=== PATIENT | male | born 1950 | race Caucasian/White ===

== ENCOUNTER → 2020-11-28 15:00 | Outpatient (REF) | payer MEDICARE, MEDICAID, SELFPAY ==
--- NOTE | 2020-11-28 15:50 | ECG_ITS ---
Hook-up date: 2020-11-28 16:23:00 Duration: 24:21:00 Test Indications: PAF Medications: 65848 QRS complexes 319 Ventricular ectopics which represent <1 % of total QRS comp. 39 Supraventricular ectopics which represent <1 % of total QRS comp. * Paced QRS complexs which represent % of total QRS comp. VENTRICULAR ECTOPY 319 Isolated 62 Bigeminal Cycles 0 Couplets 0 Runs 0 Beats in Runs * Beats LONGEST at * BPM at :: -- * Beats FASTEST at * BPM at :: -- SUPRAVENTRICULAR ECTOPY 31 Isolated 1 Couplets 1 Runs 6 Beats in Runs 6 Beats LONGEST at 60 BPM at 09:35:38 2020-11-29 6 Beats FASTEST at 60 BPM at 09:35:38 2020-11-29 HEART RATES 39 MIN at 12:42:24 2020-11-29 66 AVG 99 MAX at 22:27:55 2020-11-28 LONGEST RR 1.7360 secs at 13:25:21 2020-11-29 S-T LEVELS Channel 1 - 128 mm at 16:23:00 2020-11-28 - 128 mm at 16:23:00 2020-11-28 Channel 2 - 128 mm at 16:23:00 2020-11-28 - 128 mm at 16:23:00 2020-11-28 Channel 3 - 128 mm at 03:54:21 -- - 128 mm at 03:54:21 Basic rhythm Normal sinus rhythm No long pauses Baseline BBB Frequent Sinus bradycardia Occasional Premature ventricular complexes No sustained Atrial fibrillation Patient did not report any symptoms in the diary Referred By: Mike Duncan Overread By: DANIA ALONSO MD
== END ==
LOC: HO.CARD 15:00
PROVIDERS: PCP Family Medicine; Visit Provider Internal Medicine
DX: I48.0 Paroxysmal atrial fibrillation (principal)
CPT/HCPCS: 93225; 93226

== ENCOUNTER → 2020-12-21 14:47 | Outpatient (BNVA) | payer MEDICARE, MEDICAID, SELFPAY | PROVIDERS: PCP Family Medicine; Visit Provider Internal Medicine | DX: I48.0 Paroxysmal atrial fibrillation (principal); I50.32 Chronic diastolic (congestive) heart failure; I11.0 Hypertensive heart disease with heart failure; F14.90 Cocaine use, unspecified, uncomplicated; R00.1 Bradycardia, unspecified | CPT/HCPCS: 99212 ==

== ENCOUNTER → 2021-07-13 13:01 | Outpatient (BNVA) | payer MEDICARE, MEDICAID, SELFPAY | PROVIDERS: PCP Family Medicine; Referring Provider Family Medicine; Visit Provider Internal Medicine | DX: I25.10 Atherosclerotic heart disease of native coronary artery without angina pectoris (principal); I48.0 Paroxysmal atrial fibrillation; I11.0 Hypertensive heart disease with heart failure; I50.32 Chronic diastolic (congestive) heart failure; F14.90 Cocaine use, unspecified, uncomplicated; Z79.01 Long term (current) use of anticoagulants; Z79.899 Other long term (current) drug therapy; Z95.1 Presence of aortocoronary bypass graft | CPT/HCPCS: 93005; 99212 ==

== ENCOUNTER 2021-12-21 10:06 | Outpatient (REF) | payer MEDICARE, MEDICAID, SELFPAY ==
[2021-12-21 14:00] LABS: Hemoglobin 15.6 g/dl (14.0-18.0); Mean Corpuscular HGB Conc 31.8 g/dl (31.0-36.0); Mean Corpuscular Hemoglobin 27.1 pg (27.0-33.0); Mean Corpuscular Volume 85.1 fL (80.0-98.0); Mean Platelet Volume 13.5 fL (9.4-12.4); Platelet Count 132 X10*3/uL (160-400); Red Blood Count 5.76 X10*6/uL (4.60-5.80); White Blood Count 7.6 X10*3/uL (4.8-10.8)
[2021-12-21 14:06] LABS: Estimated Average Glucose 232 mg/dL; Hemoglobin A1c % 9.7 %
[2021-12-21 14:20] LABS: Alanine Aminotransferase 18 U/L (0-40); Albumin Level 3.9 g/dL (3.5-5.0); Alkaline Phosphatase 96 U/L (39-117); Anion Gap 9 (12-20); Aspartate Amino Transferase 17 U/L (5-37); Bilirubin Total 0.4 mg/dL (0.0-1.0); Blood Urea Nitrogen 34 mg/dL (9-16); Calcium 9.5 mg/dL (8.4-10.2); Carbon Dioxide 36 mmol/L (22-29); Chloride 98 mmol/L (96-108); Cholesterol 136 mg/dL; Estimated Glomerular Filt Rate 35; Glucose Fasting 144 mg/dL (60-99); HDL Cholesterol 35 mg/dL; LDL Cholesterol Calculated 69 mg/dl; Potassium 3.3 mmol/L (3.3-5.1); Sodium 140 mmol/L (135-145); Total Protein 7.3 g/dL (6.5-8.0); Triglycerides 164 mg/dL
[2021-12-21 14:38] LABS: TSH reflex Free T4 0.74 uIU/mL (0.32-4.0)
== END 2021-12-21 10:07 | disposition home or self-care (01) ==
LOC: HO.WFDLDS 10:06
PROVIDERS: Visit Provider Hospitalist
DX: Z00.01 Encounter for general adult medical examination with abnormal findings (principal); E11.9 Type 2 diabetes mellitus without complications; Z13.220 Encounter for screening for lipoid disorders; Z13.29 Encounter for screening for other suspected endocrine disorder
CPT/HCPCS: 36415; 80053; 80061; 83036; 84443; 85027

== ENCOUNTER → 2021-12-26 11:07 | Outpatient (REF) | payer MEDICARE, MEDICAID, SELFPAY ==
--- NOTE | 2021-12-26 11:13 | HM_ITS ---
Conclusion: 1. Patient was monitored for total period of 5 days and 12 hours 2. Baseline rhythm was normal sinus rhythm with average heart rate of 69 beats per minute 3. No significant pauses noted 4. One 4 beat wide complex run consistent with nonsustained VT at 139 beats per minute 5. Total of 28,002 PACs accounting for 17.84% total burden account for frequent PACs 6. No patient reported events MTDD
== END ==
LOC: HO.CARD 11:07
PROVIDERS: Visit Provider Internal Medicine
DX: R00.1 Bradycardia, unspecified (principal)
CPT/HCPCS: 93242

== ENCOUNTER 2022-11-20 09:17 | Outpatient (REF) | payer MEDICARE, MEDICAID, SELFPAY ==
[2022-11-20 12:12] LABS: Anion Gap 12 (12-20); Blood Urea Nitrogen 18 mg/dL (9-16); Calcium 9.1 mg/dL (8.4-10.2); Carbon Dioxide 27 mmol/L (22-29); Chloride 108 mmol/L (96-108); Estimated Glomerular Filt Rate > 60; Glucose Random 75 mg/dL (60-115); Potassium 3.9 mmol/L (3.3-5.1); Sodium 143 mmol/L (135-145)
== END 2022-11-20 09:18 | disposition home or self-care (01) ==
LOC: HO.LAB 09:17
PROVIDERS: PCP Family Medicine; Visit Provider Internal Medicine
DX: I48.0 Paroxysmal atrial fibrillation (principal); I25.10 Atherosclerotic heart disease of native coronary artery without angina pectoris; R00.1 Bradycardia, unspecified; I11.0 Hypertensive heart disease with heart failure; I50.32 Chronic diastolic (congestive) heart failure; F14.90 Cocaine use, unspecified, uncomplicated
CPT/HCPCS: 36415; 80048; 93005; 99212

== ENCOUNTER 2023-02-08 19:28 | Emergency (ER) | payer MEDICARE, MEDICAID, SELFPAY ==
--- NOTE | 2023-02-08 19:36 | ED.OVERDOSE ---
HPI - Overdose General Chief Complaint: Overdose Stated Complaint: OD Time Seen by Provider: 02/08/23 19:33 Source: patient and EMS Mode of arrival: EMS Limitations: no limitations History of Present Illness HPI Narrative: Patient comes to the emergency room via ambulance. Patient's family called 911 because the patient overdosed. EMS explains that patient was found unresponsive, PD arrived 1st, gave him 4 mg of intranasal Narcan, patient had good response, woke up, vomited. On arrival to the emergency room, patient alert and oriented x3, no acute distress. Patient states that he did not mean to overdose, he thought he was using cocaine and marijuana, and a where there were any opioids. Patient uses 2 L of oxygen at home, patient states that he feels at baseline at this time. Related Data Previous Rx's Medication Instructions Recorded amlodipine 5 mg tablet 5 mg PO DAILY 3 months #90 tabs 09/12/22 apixaban 5 mg tablet (Eliquis) 5 mg PO BID #180 tabs 09/12/22 atorvastatin 80 mg tablet 80 mg PO BEDTIME 3 months #90 tabs 09/12/22 fluticasone furoate 100 1 inh inhalation DAILY 60 days #60 09/12/22 mcg-vilanterol 25 mcg/dose ea inhalation powder (Breo Ellipta) furosemide 80 mg tablet 80 mg PO BID #135 tabs 09/12/22 glipizide 10 mg tablet 10 mg PO BID #180 tabs 09/12/22 melatonin 10 mg capsule 10 mg PO BEDTIME PRN sleep #30 caps 09/12/22 metoprolol tartrate 25 mg tablet 12.5 mg PO BID #90 tabs 09/12/22 pantoprazole 40 mg tablet,delayed 40 mg PO DAILY #90 tabs 09/12/22 release ropinirole 0.5 mg tablet 0.5 mg PO BEDTIME #90 tabs 09/12/22 trazodone 100 mg tablet 100 mg PO BEDTIME #30 tabs 01/02/23 gabapentin 300 mg capsule 300 mg PO DAILY #30 caps 01/25/23 Allergies Allergy/AdvReac Type Severity Reaction Status Date / Time No Known Allergies Allergy Verified 11/20/22 09:49 [No Known Allergies*] Review of Systems Review of Systems: Constitutional : No Weight loss, No Fever, No Chills, No Night Sweats, No Fatigue, No Malaise ENT/Mouth : No Hearing loss, No Ear Pain, No Nasal Congestion, No Sinus Pain, No Hoarseness, No sore throat, No Rhinorrhea, No Swallowing Difficulty Eyes: No Eye Pain, No Swelling, No Redness, No Foreign Body, No Discharge, No Vision Changes Cardiovascular : No Chest Pain, No SOB, No Dyspnea on Exertion, No Orthopnea, No Edema, No Palpitations Respiratory : No Cough, No Sputum, No Wheezing, No Smoke Exposure, No Dyspnea Gastrointestinal : No Nausea, No Vomiting, No Diarrhea, No Constipation, No abdominal Pain, No Hematochezia, No Melena Genitourinary : no irregular bleeding, No Dysuria, No Urinary Frequency, No Hematuria, No Urinary Incontinence, No Urgency, No Flank Pain, No Urinary Flow Changes, No Hesitancy Musculoskeletal : No joint pain, No Myalgias, No Joint Swelling Skin : No Skin Lesions, No rash Neuro : No Weakness, No Numbness, No Paresthesias, No Loss of Consciousness, No Dizziness, No Headache Psych : No Anxiety/Panic, No Depression, No SI/HI/AH/VH, No Social Issues, Heme/Lymph: No Bruising, No Bleeding,No Lymphadenopathy Endocrine : No Polyuria, No Polydipsia, No Temperature Intolerance [facility] Past Medical History Medical History Atherosclerotic cardiovascular disease Chronic heart failure with preserved ejection fraction Cocaine use Essential hypertension Paroxysmal atrial fibrillation Sinus bradycardia Stroke Type 2 diabetes mellitus Surgical History History of coronary artery bypass graft x 3 (~11/07/16) Family History Family History Father Heart attack Mother Heart attack Social History Social History (Updated 11/20/22 @ 09:50 by AURORA Vargas) Housing: Apartment Alcohol intake: current Patient Tobacco Use Status: Current everyday Tobacco user Cigarette Packs Per Day: 0.5 Cigarettes Per Day: 10 Years Smoked: 60 +/- Smoked in Last 30 Days: Yes e-Cigarette/Vaping Use: Never Used Second Hand Smoke Exposure: No Substance Use Type: Crack/Cocaine and Other Substance Use Type Other:: dope service: No Current occupational status: retired Current occupational exposures/hazards: No Cognitive needs: No Hearing needs: No Vision needs: No Physical Exam Vital Signs: Vital Signs: Last Vital Signs Temp 97.2 F 02/08/23 19:54 Pulse 68 02/08/23 19:54 Resp 16 02/08/23 19:54 BP 145/58 H 02/08/23 19:54 Pulse Ox 98 02/08/23 19:54 O2 Del Method 02/08/23 19:54 O2 Flow Rate 2 02/08/23 19:54 Oxygen Flow Rate 2 02/08/23 19:43 BMI result Body Mass Index 28.9 Const: Other: Appearance: Alert. Oriented X3. No acute distress. Eyes: Pupils equal, round and reactive to light. ENT: Pharynx normal. Neck: Normal inspection. Neck supple. No lymph nodes noted. No crepitus CVS: Normal heart rate and rhythm. Pulses normal. Normal S1 and S2 Respiratory: No respiratory distress. Breath sounds normal. No Wheezing. No rales Abdomen: Soft and nontender. No rigidity. No distention. Skin: Skin warm and dry. Normal skin color. Normal skin turgor. Extremities: No lower extremity edema. No Lacerations. No Rash Neuro: Oriented X 3. No motor deficit. No sensory deficit. Moving all extremities. No slurred speech. CN 2 through 12 grossly intact Psych: calm, cooperative, normal affect Course Course Course Narrative: -patient's point of care 224 -saturating 98% on his home dose of 2 L -patient's vitals are stable -patient will be under observation, if vitals remained stable and patient is awake, oxygenating normal, feeling well, patient may be discharged later today -patient will be provided with home Narcan -patient declined care/sude consult Medications Administered Discontinued Medications Generic Name Dose Route Start Last Admin Trade Name Freq PRN Reason Stop Dose Admin Naloxone HCl 4 mg 02/08/23 19:38 02/08/23 20:55 Naloxone Hcl Nasal Take Home 4 Mg [place] NOSTRILALT 02/08/23 19:39 4 mg ONCE ONE Administration Medical Decision Making Medical Decision Making [facility] Narrative: -patient has been under observation, vitals stable, patient awake alert and oriented x3. Patient's at bedside, ready to be discharged. Differential Diagnosis Differential Diagnoses: The differential diagnosis associated with the presentation includes (Accidental overdose, intentional overdose, depression, substance abuse) Discharge Plan Discharge Clinical Impression: Overdose Patient Disposition: Home, Self-Care Instructions: Adult Overdose (ED) Additional Instructions: Please follow-up with your primary care physician tomorrow. If you have any worsening or new symptoms, please return to the emergency room or call 911 Prescriptions: No Action trazodone 100 mg tablet 100 mg PO BEDTIME Qty: 30 1RF gabapentin 300 mg capsule 300 mg PO DAILY Qty: 30 3RF amlodipine 5 mg tablet 5 mg PO DAILY 90 Days Qty: 90 1RF Eliquis 5 mg tablet 5 mg PO BID Qty: 180 4RF atorvastatin 80 mg tablet 80 mg PO BEDTIME 90 Days Qty: 90 1RF Breo Ellipta 100-25 mcg/dose blister with device 1 inh inhalation DAILY 60 Days Qty: 60 4RF furosemide 80 mg tablet 80 mg PO BID Qty: 135 3RF Rx Instructions: 1 tablet in the morning, 1/2 tablet in the afternoon PO 2 times a day; glipizide 10 mg tablet 10 mg PO BID Qty: 180 1RF Rx Instructions: NEEDS AN APPT melatonin 10 mg capsule 10 mg PO BEDTIME PRN (Reason: sleep) Qty: 30 3RF metoprolol tartrate 25 mg tablet 12.5 mg PO BID Qty: 90 3RF pantoprazole 40 mg tablet,delayed release (DR/EC) 40 mg PO DAILY Qty: 90 4RF ropinirole 0.5 mg tablet 0.5 mg PO BEDTIME Qty: 90 3RF Interventions: [place]-Suicide Risk Severity Scale Last Done: 02/08/23 20:00
[2023-02-08 19:43] VITALS: BP 140/46; BP 176/80; PULSE 77; RESP 21; TEMP 36.7; O2SAT 97; BMI 28.9
--- NOTE | 2023-02-08 19:50 | PC.NURSE ---
BELONGINGS STORED WITH SECURITY IN [place] PER PROTOCOL.
[2023-02-08 19:54] VITALS: BP 145/58; PULSE 68; RESP 16; TEMP 36.2; O2SAT 98
--- NOTE | 2023-02-08 19:55 | MHC.EDTECH ---
pt came in via ems ,for overdosed ,pt was change into hospital attire ,pt belongings is locked up in decon ,pt vitals sign taken ,pt was hooked up to shelter monitor .
--- NOTE | 2023-02-08 19:57 | PC.NURSE ---
pt states h/o COPD aox4
--- NOTE | 2023-02-08 20:31 | PC.NURSE ---
pt resting quietly with occasional productive cough pt was found unresponsive by daughter daughter at bedside
--- NOTE | 2023-02-08 20:38 | PC.NURSE ---
pt aox4, no apparent distress daughter remains at bedside
[2023-02-08] MEDS: Naloxone HCl Nasal TAKE HOME 4 MG SPRAY NOSTRILALT (20:55)
[2023-02-08 21:24] VITALS: BP 114/70; PULSE 75; RESP 14; O2SAT 99
--- NOTE | 2023-02-08 21:25 | PC.NURSE ---
Pt aox3 resting at the bedside in no apparent distress. O2 removed as pt states using at bedtime at home and prn. o2 sat 99% RA. Breaths are even, regular, and unlabored. Discharge instructions reviewed with pt. Pt verbalizes understanding.
== END 2023-02-08 21:27 | disposition home or self-care (01) ==
PROVIDERS: Emergency Provider Emergency Medicine
DX: T40.5X1A Poisoning by cocaine, accidental (unintentional), initial encounter (principal); Y92.9 Unspecified place or not applicable; F17.210 Nicotine dependence, cigarettes, uncomplicated; Z71.6 Tobacco abuse counseling; Z79.899 Other long term (current) drug therapy; Z79.01 Long term (current) use of anticoagulants
CPT/HCPCS: 99284

== ENCOUNTER → 2023-04-12 09:44 | Outpatient (BNVA) | payer MEDICARE, MEDICAID, SELFPAY | PROVIDERS: PCP Family Medicine; Visit Provider Nurse Practitioner Family | DX: G47.9 Sleep disorder, unspecified (principal); G25.81 Restless legs syndrome; R06.83 Snoring; R40.0 Somnolence | CPT/HCPCS: 99202 ==

== ENCOUNTER 2023-06-06 13:29 | Outpatient (AMB) | payer MEDICARE, MEDICAID, SELFPAY ==
--- NOTE | 2023-06-06 13:34 | A.OFFPC_ITS ---
Vital Signs 06/06/23 13:35 Height 5 ft 11 in Weight 205 lb 2 oz BMI 28.6 BP 100/70 Blood Pressure Location Lt brachial Position Sitting Pulse 60 Pulse Source Pulse Oximeter Pulse Oximetry (%) 99 Oxygen Delivery Method Room Air Intake Visit Reasons: f/u diabetes Intake Note: Patient is here to follow up on diabetes. Allergies No Known Allergies [No Known Allergies*] Allergy (Verified 06/06/23 13:38) Medication List - Last Reconciled 06/06/23 by Sivakumar Drake MD amlodipine 5 mg PO DAILY 3 months apixaban (Eliquis) 5 mg PO BID ascorbate calcium (vitamin C) 500 mg PO DAILY 30 days atorvastatin 80 mg PO BEDTIME 3 months blood sugar diagnostic (FreeStyle Lite Strips) DX: E11.9, test blood sugar 2 times a day, 90 days blood-glucose meter (FreeStyle Lite Meter kit) DX: E11.9, test blood sugar 2 times a day, duration 999 days dulaglutide (Trulicity) 0.75 mg (0.5 mL) subcut QWEEK 28 days ferrous sulfate 325 mg PO Q OTHER DAY 30 days fluticasone furoate-vilanterol 100-25 mcg/dose (Breo Ellipta) 1 inh inhalation DAILY 60 days furosemide 80 mg PO BID gabapentin 300 mg PO DAILY glipizide 10 mg PO BID lancets (FreeStyle Lancets) As directed melatonin 10 mg PO BEDTIME PRN metoprolol tartrate 12.5 mg (1/2 x 25 mg) PO BID pantoprazole 40 mg PO DAILY quetiapine 50 mg (2 x 25 mg) PO BEDTIME ropinirole 0.5 mg PO BEDTIME Tobacco use date assessed: 06/06/23 Fall risk assessment: No Falls in past year Last assessed Fall Risk: 06/06/23 Dental Screening Dental Screen Date: 06/06/23 Did you have a dental visit in the last 12 months?: No Did you have a dental problem in the last 6 months where you did not have access to dental care?: No Was dental information given to patient?: No HPI f/u diabetes HPI Details 73 y/o male presents to f/u diabetes. A1c today 06/06/23 improved from 7.5% to 6.7%. He is on Trulicity 0.75,g and glipizide 10mg b.i.d. They had reported a couple instances of low blood sugar in the 60s in the morning. Pt states he continues to smoke 1/2 ppd. They report ongoing difficulty sleeping. [facility] Medical History Atherosclerotic cardiovascular disease Chronic heart failure with preserved ejection fraction Cocaine use Essential hypertension Paroxysmal atrial fibrillation Sinus bradycardia Stroke Type 2 diabetes mellitus Surgical History History of coronary artery bypass graft x 3 (~11/07/16) Family History Father No problems noted. Mother Heart attack Social History Housing: Apartment Alcohol intake: current Patient Tobacco Use Status: Current everyday Tobacco user Cigarette Packs Per Day: 0.5 Cigarettes Per Day: 10 Years Smoked: 60 +/- e-Cigarette/Vaping Use: Never Used Second Hand Smoke Exposure: No Substance Use Type: Crack/Cocaine and Other service: No Current occupational status: retired Current occupational exposures/hazards: No Cognitive needs: No Hearing needs: No Vision needs: No Questionnaire BAMBI-7 AMB Questionnaire BAMBI-7 Date BAMBI - 7 assessed: 09/12/22 Source: Developed by Drs. Nino Durham, Elsa Pastrana, Avtar Dalton and colleagues, with an educational daysi from [employer]. Review of Systems Const Denies chills, Denies fatigue, Denies fever(s), Denies headache(s) and Denies weakness ENT Denies dizziness and Denies headache(s) Card Denies dyspnea Resp Denies cough, Denies dyspnea, Denies wheezing and Denies other (shortness of breath) Musc Denies numbness and Denies tingling Neuro Denies dizziness, Denies headache(s), Denies numbness, Denies tingling and Denies weakness Psych Denies anxiety and Denies depression Endo Denies fatigue Aller/Immun Denies wheezing Physical exam (Primary Care) Vital Signs: Last Vital Signs Pulse 60 06/06/23 13:35 BP 100/70 06/06/23 13:35 Pulse Ox 99 06/06/23 13:35 Oxygen Delivery Method Room Air 06/06/23 13:35 BMI result Body Mass Index 28.6 Tobacco/Smoking Status: Tobacco use Status Tobacco use date assessed 06/06/23 06/06/23 13:41 Patient Tobacco Use Status Current everyday Tobacco 06/06/23 13:41 e-Cigarette/Vaping Use Never Used 06/06/23 13:41 Const General: well developed; No acute distress Nutritional Appearance: well nourished Orientation/consciousness: patient oriented x3 HENMT Head: Yes normocephalic and Yes atraumatic Eyes General: appearance normal, both eyes and all related structures Pupils: Equal, round and reactive pupils present EOM: EOMs intact bilaterally Resp Other: Distant breath sounds Effort & Inspection: normal respiratory effort Neuro General: patient oriented x3 and gait normal Cranial nerves: Yes Equal, round and reactive pupils present Psych Affect: normal affect Results AMB Hemoglobin A1c AMB Hemoglobin A1c 6.7 % Last Edit by Jada Richards CMA on 06/06/23 13:54 Results Reviewed Results Reviewed: Laboratory Last Values Hgb A1c (Clinic) 6.7 % (4.0-6.0) H 06/06/23 13:51 Assessment and Plan Assessment & Plan (1) Type 2 diabetes mellitus: Code(s): E11.9 - Type 2 diabetes mellitus without complications Plan: A1c 6.7% but his morning blood sugars have been as low as 42 and a few times in the 60s. He had been taking Trulicity and glipizide b.i.d. but stopped Trulicity. Likely that low blood sugars are due to his evening dose of glipizide. He will add back Trulicity and family members will help watch his blood sugars. Will likely need to add back morning dose of glipizide which I recommend they start if blood sugars are not well controlled on Trulicity alone. He will no longer take glipizide in the evenings. (2) Smoker: Code(s): F17.200 - Nicotine dependence, unspecified, uncomplicated Plan: Advised weaning down smoking (3) Difficulty sleeping: Code(s): G47.9 - Sleep disorder, unspecified Plan: Had tried trazodone and Seroquel without much luck Patient requests Ambien which we will try (4) COPD (chronic obstructive pulmonary disease): Code(s): J44.9 - Chronic obstructive pulmonary disease, unspecified Plan: Lungs are currently clear As above, advised weaning down smoking and cessation. Orders: Orders AMB Hemoglobin A1c Today Z13.9 - Encounter for screening, unspecified Medications: New zolpidem (Ambien) 5 mg PO BEDTIME 30 days PRN 30 tabs 0RF sleep Changed From glipizide NEEDS AN APPT 10 mg PO BID 180 tabs 1RF To glipizide NEEDS AN APPT 10 mg PO QAM 90 days 90 tabs 2RF Refilled dulaglutide (Trulicity) 0.75 mg (0.5 mL) subcut QWEEK 28 days 2 mL 3RF E11.65 - Type 2 diabetes mellitus with hyperglycemia Coding Level of Care Code Est Pt Level 4 (65512) Diagnoses Type 2 diabetes mellitus E11.9 Smoker F17.200 Difficulty sleeping G47.9 COPD (chronic obstructive pulmonary disease) J44.9
[2023-06-06 13:35] VITALS: BP 100/70; PULSE 60; O2SAT 99; BMI 28.6
== END 2023-06-06 14:27 | disposition home or self-care (01) ==
PROVIDERS: Visit Provider Family Medicine
DX: E11.9 Type 2 diabetes mellitus without complications (principal); F17.200 Nicotine dependence, unspecified, uncomplicated; G47.9 Sleep disorder, unspecified; J44.9 Chronic obstructive pulmonary disease, unspecified
CPT/HCPCS: 83036; 99214

== ENCOUNTER 2023-09-05 14:28 | Outpatient (AMB) | payer MEDICARE, MEDICAID, SELFPAY ==
[2023-09-05 14:35] VITALS: BP 96/58; PULSE 82; O2SAT 71; BMI 25.1
--- NOTE | 2023-09-05 14:35 | A.OFFPC_ITS ---
Vital Signs 09/05/23 14:35 09/05/23 15:17 Height 5 ft 11 in Weight 180 lb BMI 25.1 BP 96/58 L Blood Pressure Location Lt brachial Position Sitting Pulse 82 Pulse Source Pulse Oximeter Pulse Oximetry (%) 71 L 87 L Oxygen Delivery Method Room Air Nasal Cannula Oxygen Flow Rate 2 Intake Visit Reasons: f/u diabetes Intake Note: Patient is here today to follow up on his diabetes today. Allergies No Known Allergies [No Known Allergies*] Allergy (Verified 09/05/23 14:40) Tobacco use date assessed: 06/06/23 Fall risk assessment: No Falls in past year Last assessed Fall Risk: 09/05/23 Dental Screening Dental Screen Date: 09/05/23 Did you have a dental visit in the last 12 months?: No Did you have a dental problem in the last 6 months where you did not have access to dental care?: No Was dental information given to patient?: Patient declined HPI f/u diabetes HPI Details 73 y/o male presents to f/u diabetes. A1c was improved but pt reported he had been having too many low blood sugars. They had discontinued Trulicity due to low blood sugars but appeared glipizide was cause of his low morning blood sugars. He resumes Trulicity and will no longer take evening glipizide. Last A1c 06/06/23 6.7%. A1c today 09/05/23 is O2 sat today 71. Blood pressure today 96/58. [facility] Medical History Atherosclerotic cardiovascular disease Chronic heart failure with preserved ejection fraction Cocaine use Essential hypertension Paroxysmal atrial fibrillation Sinus bradycardia Stroke Type 2 diabetes mellitus Surgical History History of coronary artery bypass graft x 3 (~11/07/16) Family History Father No problems noted. Mother Heart attack Social History Housing: Apartment Alcohol intake: current Patient Tobacco Use Status: Current everyday Tobacco user Cigarette Packs Per Day: 0.5 Cigarettes Per Day: 10 Years Smoked: 60 +/- e-Cigarette/Vaping Use: Never Used Second Hand Smoke Exposure: No Substance Use Type: Crack/Cocaine and Other service: No Current occupational status: retired Current occupational exposures/hazards: No Cognitive needs: No Hearing needs: No Vision needs: No Questionnaire BAMBI-7 AMB Questionnaire BAMBI-7 Date BAMBI - 7 assessed: 09/12/22 Source: Developed by Drs. Nino Durham, Elsa Pastrana, Avtar Dalton and colleagues, with an educational daysi from [employer]. Review of Systems Const Denies chills, Denies fatigue, Denies fever(s), Denies headache(s) and Denies weakness ENT Denies dizziness and Denies headache(s) Card Denies chest pain, Denies lightheadedness, Denies dyspnea and Denies other (Palpitations) Resp Denies cough, Denies dyspnea, Denies wheezing and Denies other ( shortness of breath) Musc Denies numbness and Denies tingling Neuro Denies dizziness, Denies headache(s), Denies numbness, Denies tingling, Denies paresthesias and Denies weakness Psych Denies anxiety and Denies depression Endo Denies fatigue Aller/Immun Denies wheezing Physical exam (Primary Care) Vital Signs: Last Vital Signs Pulse 82 09/05/23 14:35 BP 96/58 L 09/05/23 14:35 Pulse Ox 71 L 09/05/23 14:35 Oxygen Delivery Method Room Air 09/05/23 14:35 BMI result Body Mass Index 25.1 Tobacco/Smoking Status: Tobacco use Status Tobacco use date assessed 06/06/23 09/05/23 14:39 Patient Tobacco Use Status Current everyday Tobacco 09/05/23 14:39 e-Cigarette/Vaping Use Never Used 09/05/23 14:39 Const General: no acute distress and well developed Nutritional Appearance: well nourished Orientation/consciousness: patient oriented x3 HENRI Head: Yes normocephalic and Yes atraumatic Eyes General: appearance normal, both eyes and all related structures Pupils: Equal, round and reactive pupils present EOM: EOMs intact bilaterally Resp Effort & Inspection: normal respiratory effort Auscultation: clear to auscultation bilaterally Cardio Rate: regular rate Rhythm: regular rhythm Heart sounds: S1 normal heart sound present, S2 normal heart sound present, no gallops, no murmurs and no rubs Neuro General: patient oriented x3 and gait normal Cranial nerves: Yes Equal, round and reactive pupils present Psych Affect: normal affect Assessment and Plan Assessment & Plan (1) Type 2 diabetes mellitus: Code(s): E11.9 - Type 2 diabetes mellitus without complications Plan: A1c?7.3%?is?above?goal?of?7.0% Increased?Trulicity Continue?glipizide (2) Essential hypertension: Code(s): I10 - Essential (primary) hypertension Plan: Blood?pressure?is?a?little?low?today. Will?decrease?amlodipine?from?5?mg?daily?to?2.5?mg?daily Continue?metoprolol Hydrate?well (3) COPD (chronic obstructive pulmonary disease): Code(s): J44.9 - Chronic obstructive pulmonary disease, unspecified Plan: Patient?continues?to?smoke?though?he?says?he?is?still?working?on?weaning?this?do wn Encouraged?cessation Oxygen?saturation?today?is?significantly?low.??He?has?oxygen?at?[place]?but?does?not?have?oxygen?for?traveling. Lungs?are?clear?today;?no?exacerbation?and?patient?says?he?feels?like?he?is?at?b [facility]. Patient?will?use?his?oxygen?at?home. No?recent?visit?with?pulmonolo gy?and?I?have?referred?him?back?to?pulmonology.??He?will?likely?need?oxygen?for? ambulation?as?well?as?at?home. (4) Hypoxia: Code(s): R09.02 - Hypoxemia Plan: As?above Patient's?oxygen?saturation?increases?to?88%?on?2?L?oxygen?by?nasal?cannula. Patient?feels?well?and?lungs?sound?clear. Use?at-home?oxygen?and?follow-up?with?pulmonology?as?soon?as?able. Needs?to?be?seen?by?pulmonology. No?recent?appointments.??Referred?back?to?pulmonology Orders: Referrals Pulmonology Referral J44.9 - Chronic obstructive pulmonary disease, unspecified, R09.02 - Hypoxemia Medications: Changed From amlodipine 5 mg PO DAILY 3 months 90 tabs 1RF To amlodipine 2.5 mg PO DAILY 90 tabs 1RF 3 months From dulaglutide (Trulicity) 0.75 mg (0.5 mL) subcut QWEEK 28 days 2 mL 3RF E11.65 - Type 2 diabetes mellitus with hyperglycemia To dulaglutide 1.5 mg (0.5 mL) subcut QWEEK 2 mL 3RF 28 days E11.65 - Type 2 diabetes mellitus with hyperglycemia Coding Level of Care Code Est Pt Level 4 (72435) Diagnoses Type 2 diabetes mellitus E11.9 Essential hypertension I10 COPD (chronic obstructive pulmonary disease) J44.9 Hypoxia R09.02
[2023-09-05 15:17] VITALS: O2SAT 87
== END 2023-09-05 15:21 | disposition home or self-care (01) ==
PROVIDERS: PCP Family Medicine; Visit Provider Family Medicine
DX: E11.9 Type 2 diabetes mellitus without complications (principal); I10 Essential (primary) hypertension; J44.9 Chronic obstructive pulmonary disease, unspecified; R09.02 Hypoxemia
CPT/HCPCS: 83036; 99214

== ENCOUNTER 2023-09-25 13:50 | Outpatient (AMB) | payer MEDICARE, MEDICAID, SELFPAY ==
[2023-09-25 14:24] VITALS: BP 100/58; PULSE 53; O2SAT 92; BMI 22.9
--- NOTE | 2023-09-25 14:24 | A.OFFVIS_ITS ---
Intake Vital Signs 09/25/23 14:24 Height 5 ft 11 in Weight 164 lb BMI 22.9 BP 100/58 L Blood Pressure Location Lt brachial Position Sitting Pulse 53 Pulse Source Pulse Oximeter Pulse Oximetry (%) 92 Oxygen Delivery Method Nasal Cannula Oxygen Flow Rate 2 Intake Visit Reasons: copd Professor Of Criminal Justice Required: No Labeling Specialist: Labeling Specialist offered & declined Accompanied by: Family/Other Allergies No Known Allergies [No Known Allergies*] Allergy (Verified 09/25/23 14:31) Medication List - Last Reconciled 09/25/23 by Sonia Argueta LPN amlodipine 2.5 mg PO DAILY 3 months apixaban (Eliquis) 5 mg PO BID ascorbate calcium (vitamin C) 500 mg PO DAILY 30 days atorvastatin 80 mg PO BEDTIME 3 months blood sugar diagnostic (FreeStyle Lite Strips) DX: E11.9, test blood sugar 2 times a day, 90 days blood-glucose meter (FreeStyle Lite Meter kit) DX: E11.9, test blood sugar 2 times a day, duration 999 days dulaglutide 1.5 mg (0.5 mL) subcut QWEEK 28 days ferrous sulfate 325 mg PO Q OTHER DAY 30 days fluticasone furoate-vilanterol 100-25 mcg/dose (Breo Ellipta) 1 inh inhalation DAILY 60 days furosemide 80 mg PO BID gabapentin 300 mg PO DAILY glipizide 10 mg PO QAM 90 days lancets (FreeStyle Lancets) As directed melatonin 10 mg PO BEDTIME PRN metoprolol tartrate 12.5 mg (1/2 x 25 mg) PO BID pantoprazole 40 mg PO DAILY quetiapine 50 mg (2 x 25 mg) PO BEDTIME ropinirole 0.5 mg PO BEDTIME zolpidem (Ambien) 5 mg PO BEDTIME PRN 30 days HPI copd HPI Details Josh is pleasant 73 year old male, current 2-2.5 ppd smoker with a 60+ pack year history, with underlying COPD, chronic respiratory failure on 2 L supplemental oxygen, atrial fibrillation, CABG x 3, diastolic dysfunction. He was referred by PCP for pulmonary evaluation. He reports worsening productive cough with yellow mucous and specks of blood, dyspnea on exertion, and wheezing. He has been using Breo with suboptimal control. He reports a significant amount of weight loss over the last three months, upwards of 60 lbs. He denies any personal or family history of lung cancer. He had a chest CT in 2019 which revealed a >1cm nodule of the GERRI with recommendation for a 3 month follow up. Unfortunately he was lost to follow up and has not had any further imaging. [facility] Medical History Cocaine use Type 2 diabetes mellitus Chronic heart failure with preserved ejection fraction Stroke Essential hypertension Sinus bradycardia Paroxysmal atrial fibrillation Atherosclerotic cardiovascular disease Surgical History History of coronary artery bypass graft x 3 (~11/07/16) Family History Father No problems noted. Mother Heart attack Social History Housing: Apartment Alcohol intake: current Patient Tobacco Use Status: Current everyday Tobacco user Cigarette Packs Per Day: 2 Cigarettes Per Day: 40 Years Smoked: 60 +/- e-Cigarette/Vaping Use: Never Used Second Hand Smoke Exposure: No Substance Use Type: Crack/Cocaine and Other Advance Directives: No Advance Directives Information Provided: No service: No Current occupational status: retired Current occupational exposures/hazards: No Cognitive needs: No Hearing needs: No Vision needs: No Review of Systems Const Denies chills, Denies excessive sweating, Denies fever(s), Denies headache(s) and Denies night sweats Eyes Denies dry eyes, Denies irritation and Denies itchy eyes ENT Reports Normal hearing present, Denies headache(s), Denies nasal congestion, Denies nasal discharge, Denies post nasal drip and Denies sore throat Card Denies chest pain, Denies chest pain at rest, Denies chest pain with activity, Denies claudication, Denies leg edema, Denies orthopnea and Denies paroxysmal nocturnal dyspnea Resp Denies pain on inspiration, Denies pain with cough and Denies stridor Musc Denies myalgias Neuro Reports Normal hearing present and Denies headache(s) Endo Denies excessive sweating Fabrice/Lymph Denies lymphadenopathy Aller/Immun Denies itchy eyes and Denies seasonal rhinorrhea Physical Exam Vital Signs: Last Vital Signs Pulse 53 09/25/23 14:24 BP 100/58 L 09/25/23 14:24 Pulse Ox 92 09/25/23 14:24 Oxygen Delivery Method Nasal Cannula 09/25/23 14:24 Oxygen Flow Rate 2 09/25/23 14:24 BMI result Body Mass Index 22.9 Const General: cooperative, no acute distress, well developed and alert Orientation/consciousness: patient oriented x3 Limitations: no limitations HEENT Head: Yes normal to inspection, Yes normocephalic and Yes atraumatic Ears: hearing grossly normal bilaterally and external ears normal Eyes General: appearance normal, both eyes and all related structures Eyelids: Yes eyelids normal Sclerae: sclerae normal EOM: EOMs intact bilaterally Neck Other: nonpainful, palpable mass on right lateral neck Chest Chest palpation & inspection: normal inspection of the chest Resp Other: rhonchi throughout with expiratory wheezes, improved after duoneb Effort & Inspection: normal respiratory effort, able to speak in complete sentences, no stridor, not tachypneic, no tripod positioning and no use of accessory muscles Cardio Rate: regular rate Skin Other: warm, dry General skin exam: no rashes or lesions noted Neuro General: patient oriented x3 Cranial nerves: Yes Normal hearing present Cognition (Neuro): normal cognition Gait exam (Neuro): Normal gait present Extrem General: Yes normal to inspection, Yes capillary refill normal, Yes no clubbing, cyanosis or edema and Yes no pedal edema Psych Appearance: grossly normal and well kempt Speech and movement: Normal speech and movement present and Clear speech present Affect: normal affect Attitude: cooperative Thought process: Normal thought process present Thought content: Normal thought content present Insight: Good insight present (Psych) Judgement: Good judgement present (Psych) Office Procedures Nebulizer Treatment Nebulizer Treatment 18845-[id number]/MDI RX initial, or Nebulizer Subsequent Treatment Office Meds ipratropium 0.5 mg-albuterol 3 mg (2.5 mg base)/3 mL nebulization soln Performing Provider: Virgen Bullard NP Performing Location: [facility] Administered by: Sonia Argueta LPN on 09/25/23 15:00 Dose Route Admin Location Dispensed Lot Number Expiration Date NDC Family Preservation Caseworker 3 mL inhalation 3 mL [id number] 01/22/25 5884-1312-72 [employer] ITA Assessment & Plan Assessment & Plan (1) Chronic respiratory failure with hypoxia: Code(s): J96.11 - Chronic respiratory failure with hypoxia (2) COPD (chronic obstructive pulmonary disease): Code(s): J44.9 - Chronic obstructive pulmonary disease, unspecified (3) Pulmonary nodule 1 cm or greater in diameter: Code(s): R91.1 - Solitary pulmonary nodule (4) Smoker: Code(s): F17.200 - Nicotine dependence, unspecified, uncomplicated Plan Josh's symptoms likely related to underlying COPD. Patient with acute exacerbation, will treat bronchitic symptoms with doxycyline and prednisone. Will switch Breo to Trelegy. Gave nebulizer machine for home use. Patient noted to have blood tinged sputum, advised to obtain CXR today. Will also send for chest CT given prior >1 cm nodule and continued smoking history. Would like to obtain PFT in the future, once symptoms back to baseline. Will follow up in 2 weeks or sooner if needed. All questions were answered and patient is in agreement of plan. Orders: Orders XR chest 2V Today R05.3 - Chronic cough AMB Nebulizer Treatment Today J44.9 - Chronic obstructive pulmonary disease, unspecified Medications: New prednisone 40 mg (2 x 20 mg) PO DAILY 10 tabs 0RF doxycycline hyclate 100 mg PO BID 20 caps 0RF twbrhmnhvdx-wvfnmyosk-axdxswxg 200-62.5-25 mcg (Trelegy Ellipta) 1 inh inhalation DAILY 60 ea 0RF ipratropium-albuterol 0.5 mg-3 mg(2.5 mg base)/3 mL 3 mL inhalation BID PRN 180 mL 0RF wheezing Coding Level of Care Code New Pt Level 4 (41271) Diagnoses Chronic respiratory failure with hypoxia J96.11 COPD (chronic obstructive pulmonary disease) J44.9 Pulmonary nodule 1 cm or greater in diameter R91.1 Smoker F17.200 CPT Codes Nebulizer Treatment - Nebulizer Treatment, initial or subsequent: 62880- Nebulizer/MDI RX initial, or Nebulizer Subsequent Treatment ([id number])
== END 2023-09-25 15:19 | disposition home or self-care (01) ==
LOC: HO.HPSW 13:50
PROVIDERS: PCP Family Medicine; Referring Provider Family Medicine; Visit Provider Nurse Practitioner Family
DX: J96.11 Chronic respiratory failure with hypoxia (principal); J44.9 Chronic obstructive pulmonary disease, unspecified; R91.1 Solitary pulmonary nodule; F17.200 Nicotine dependence, unspecified, uncomplicated
CPT/HCPCS: 99204; 99214

== ENCOUNTER 2023-09-25 16:48 | Inpatient (IN) | payer MEDICARE, MEDICAID, SELFPAY ==
[2023-09-25] VITALS (13 sets, daily range): BP systolic 129–146; BP diastolic 49–62; PULSE 58–95; RESP 20–28; TEMP 36.5–36.6; O2SAT 78–96; BMI 24.2
--- NOTE | ~2023-09-25 | CT_ITS ---
EXAMINATION: CT ANGIOGRAM CHEST, ABDOMEN AND PELVIS CLINICAL INFORMATION: Hypoxia. Shortness of breath. Pain. COMPARISON: 12/09/2018. TECHNIQUE: TECHNIQUE: Prior to contrast administration, noncontrast localization images were obtained. Subsequently, multidetector volumetric imaging was performed from the thoracic inlet to below the diaphragms following the administration of 80 mL Omnipaque 350 intravenous contrast. No contrast reaction reported Sagittal, coronal, and MIP oblique sagittal reformatted images were obtained on the CT workstation, uploaded to PACS, and reviewed. This CT examination was performed using dose optimization techniques as appropriate, variously including the following: *Automated exposure control *Adjustment of mA and/or kV according to patient size (this includes techniques or standardized protocols for targeted exams where dose is matched to indication/reason for exam; i.e. extremities or head) *Use of iterative reconstruction technique Total exam dose-length product 1046Gy-cm FINDINGS: QUALITY OF STUDY/CONTRAST BOLUS: Adequate. PULMONARY ARTERIES: No pulmonary emboli. THORACIC AORTA: No aneurysm. LUNG: There is diffuse emphysematous change. There is a small amount of debris within the lower trachea. There is left lower lung field bronchial opacification with significant left lower lobe consolidation. There is also right lower lobe bronchial opacification and diffuse bronchial thickening. There is a right middle lobe opacity. PLEURA: No pleural effusion or pneumothorax. CORONARY ARTERY CALCIFICATION: [id number]. MEDIASTINUM: Normal heart size. No pericardial effusion. No hilar or mediastinal lymphadenopathy. No evidence of septal bowing or right heart strain. There is diffuse esophageal thickening. CHEST WALL/AXILLA: No axillary or internal mammary lymphadenopathy. LIVER, GALLBLADDER, BILIARY TREE: The liver is normal in size, shape, and attenuation. No focal hepatic lesion or biliary ductal dilatation is present. A few gallstones are noted within a decompressed gallbladder. PANCREAS: Normal; no mass or surrounding fluid. SPLEEN: Normal size. No focal lesion. ADRENAL GLANDS: Normal; no mass. KIDNEYS AND URETERS: The kidneys are normal in size, shape, and attenuation. No hydronephrosis, hydroureter, or calculi seen. No perinephric stranding. BLADDER: No focal mass or wall thickening seen. No bladder calculi. GASTROINTESTINAL TRACT: Stomach and small bowel non-dilated. No colonic wall thickening or pericolonic inflammatory changes. The appendix is dilated measuring up to 1 cm but does contain air to the tip. There is no periappendiceal infiltration. ABDOMINAL WALL: No hernia seen. LYMPHOVASCULAR STRUCTURES: There is atherosclerotic plaque of the abdominal aorta and proximal branches. PELVIC VISCERA: Unremarkable. OSSEOUS STRUCTURES: There is diffuse [id number] thoracolumbar disc degenerative change. CT/CT abdomen pelvis w IV con IMPRESSION: No evidence for pulmonary embolism. Diffuse emphysema/COPD. Small amount of debris within the lower trachea. Bilateral lower lobe bronchial opacification. There is significant left lower lobe consolidation suggesting atelectasis and/or infiltrate. Right middle lobe opacity likely atelectasis. Cholelithiasis. The appendix is prominent in size measuring up to 1 cm but does contain air to the tip and there is no associated periappendiceal infiltration. Clinical correlation and follow-up is needed. Fleischner guidelines were followed.
--- NOTE | ~2023-09-25 | XR_ITS ---
EXAMINATION: XR CHEST CLINICAL INFORMATION: Shortness of breath COMPARISON: 09/25/2023 TECHNIQUE: Frontal view of the chest was obtained. FINDINGS: Patient is status post median sternotomy. Lungs are clear cardiomediastinal silhouette is not enlarged. There is no evidence of pleural effusion. XR/XR chest 1V IMPRESSION: No active cardiopulmonary disease
--- NOTE | ~2023-09-25 | CT_ITS ---
EXAMINATION: CT HEAD WITHOUT CONTRAST CLINICAL INFORMATION: Encephalopathy. Subacute cerebrovascular accident. COMPARISON: None available. TECHNIQUE: Contiguous axial imaging was performed from the skull base to vertex without intravenous administration of contrast. This CT examination was performed using dose optimization techniques as appropriate, variously including the following: *Automated exposure control. *Adjustment of mA and/or kV according to patient size (this includes techniques or standardized protocols for targeted exams where dose is matched to indication/reason for exam; i.e. extremities or head). *Use of iterative reconstruction technique. DLP: 1852 mGy-cm FINDINGS: There is no evidence of acute intracranial hemorrhage or edematous territorial infarction. Chronic appearing lacunar infarcts of the bilateral degroot radiata and lentiform nuclei. No additional loss of meng-white matter differentiation. A few foci of hypoattenuation in the periventricular and deep white matter are consistent with mild microangiopathy. Proportional prominence of the ventricles and sulcal spaces without evidence of obstructive hydrocephalus. No abnormal mass effect or midline shift. No extra-axial fluid collections. Calcific atherosclerotic disease of the intracranial internal carotid and vertebral arteries. No hyperdense vessel sign. No acute soft tissue or osseous abnormalities. Mild mucosal thickening of the paranasal sinuses. The mastoid air cells and middle ear cavities are clear. Bilateral lens extractions. CT/CT head/brain wo IV con IMPRESSION: 1. No evidence of acute intracranial hemorrhage or edematous territorial infarction. 2. Mild underlying microangiopathy and generalized cerebral volume loss. Chronic appearing lacunar infarcts of the deep nuclei.
--- NOTE | ~2023-09-25 | CT_ITS ---
EXAMINATION: CT ANGIOGRAM OF THE CHEST WITH AND WITHOUT CONTRAST (CT PULMONARY ANGIOGRAM FOR PE) CLINICAL INFORMATION: Reason for Exam persistent hypoxia COMPARISON: Chest x-ray September 27, 2023. CT of chest September 25, 2023 TECHNIQUE: Prior to contrast administration, noncontrast localization images were obtained. Subsequently, multidetector volumetric imaging was performed from the thoracic inlet to below the diaphragms following the administration of 65 mL Omnipaque 350 intravenous contrast. No contrast reaction reported Sagittal, coronal, and MIP oblique sagittal reformatted images were obtained on the CT workstation, uploaded to PACS, and reviewed. This CT examination was performed using dose optimization techniques as appropriate, variously including the following: *Automated exposure control *Adjustment of mA and/or kV according to patient size (this includes techniques or standardized protocols for targeted exams where dose is matched to indication/reason for exam; i.e. extremities or head) *Use of iterative reconstruction technique Total exam dose-length product 494 mGy-cm FINDINGS: QUALITY OF STUDY/CONTRAST BOLUS: Satisfactory. PULMONARY ARTERIES: No pulmonary emboli. THORACIC AORTA: No aneurysm. Vascular calcifications of the wall of the thoracic aorta. LUNG: Diffuse marked emphysematous change of lungs. Bronchial calcification and consolidation of left lower lobe unchanged since prior CT September 25, 2023. There is persistent atelectasis also of the right middle lobe unchanged since prior CT. PLEURA: No pleural effusion or pneumothorax. MEDIASTINUM: Normal heart size. No pericardial effusion. No hilar or mediastinal lymphadenopathy. No evidence of septal bowing or right heart strain. Images included portions of the lower neck. There is soft tissue density and fullness of the right aryepiglottic fold and vallecula and piriform sinus. This could be mucus but a mass may be present. Consider direct visualization. CORONARY ARTERY CALCIFICATION: Mild to moderate coronary calcification CHEST WALL/AXILLA: No axillary or internal mammary lymphadenopathy. OSSEOUS STRUCTURES: No acute or suspicious osseous abnormality. Status post median sternotomy. Multilevel degenerative spondylosis spine. UPPER ABDOMEN: Unremarkable. No reflux of contrast into the hepatic veins to suggest elevated right heart pressures. CT/CT angio chest PE protocol IMPRESSION: 1. No evidence of pulmonary embolism. 2. Marked emphysematous change of lungs. 3. Chronic consolidation left lower lobe and right middle lobe. 4. Soft tissue density and fullness of the right aryepiglottic fold, vallecula and piriform sinus. This could be mucus but a mass may be present. Consider direct visualization. VTE: negative.
--- NOTE | ~2023-09-25 | CT_ITS ---
EXAMINATION: CT ANGIOGRAM CHEST, ABDOMEN AND PELVIS CLINICAL INFORMATION: Hypoxia. Shortness of breath. Pain. COMPARISON: 12/09/2018. TECHNIQUE: TECHNIQUE: Prior to contrast administration, noncontrast localization images were obtained. Subsequently, multidetector volumetric imaging was performed from the thoracic inlet to below the diaphragms following the administration of 80 mL Omnipaque 350 intravenous contrast. No contrast reaction reported Sagittal, coronal, and MIP oblique sagittal reformatted images were obtained on the CT workstation, uploaded to PACS, and reviewed. This CT examination was performed using dose optimization techniques as appropriate, variously including the following: *Automated exposure control *Adjustment of mA and/or kV according to patient size (this includes techniques or standardized protocols for targeted exams where dose is matched to indication/reason for exam; i.e. extremities or head) *Use of iterative reconstruction technique Total exam dose-length product 1046Gy-cm FINDINGS: QUALITY OF STUDY/CONTRAST BOLUS: Adequate. PULMONARY ARTERIES: No pulmonary emboli. THORACIC AORTA: No aneurysm. LUNG: There is diffuse emphysematous change. There is a small amount of debris within the lower trachea. There is left lower lung field bronchial opacification with significant left lower lobe consolidation. There is also right lower lobe bronchial opacification and diffuse bronchial thickening. There is a right middle lobe opacity. PLEURA: No pleural effusion or pneumothorax. CORONARY ARTERY CALCIFICATION: [id number]. MEDIASTINUM: Normal heart size. No pericardial effusion. No hilar or mediastinal lymphadenopathy. No evidence of septal bowing or right heart strain. There is diffuse esophageal thickening. CHEST WALL/AXILLA: No axillary or internal mammary lymphadenopathy. LIVER, GALLBLADDER, BILIARY TREE: The liver is normal in size, shape, and attenuation. No focal hepatic lesion or biliary ductal dilatation is present. A few gallstones are noted within a decompressed gallbladder. PANCREAS: Normal; no mass or surrounding fluid. SPLEEN: Normal size. No focal lesion. ADRENAL GLANDS: Normal; no mass. KIDNEYS AND URETERS: The kidneys are normal in size, shape, and attenuation. No hydronephrosis, hydroureter, or calculi seen. No perinephric stranding. BLADDER: No focal mass or wall thickening seen. No bladder calculi. GASTROINTESTINAL TRACT: Stomach and small bowel non-dilated. No colonic wall thickening or pericolonic inflammatory changes. The appendix is dilated measuring up to 1 cm but does contain air to the tip. There is no periappendiceal infiltration. ABDOMINAL WALL: No hernia seen. LYMPHOVASCULAR STRUCTURES: There is atherosclerotic plaque of the abdominal aorta and proximal branches. PELVIC VISCERA: Unremarkable. OSSEOUS STRUCTURES: There is diffuse [id number] thoracolumbar disc degenerative change. CT/CT angio chest PE protocol IMPRESSION: No evidence for pulmonary embolism. Diffuse emphysema/COPD. Small amount of debris within the lower trachea. Bilateral lower lobe bronchial opacification. There is significant left lower lobe consolidation suggesting atelectasis and/or infiltrate. Right middle lobe opacity likely atelectasis. Cholelithiasis. The appendix is prominent in size measuring up to 1 cm but does contain air to the tip and there is no associated periappendiceal infiltration. Clinical correlation and follow-up is needed. Fleischner guidelines were followed.
--- NOTE | ~2023-09-25 | XR_ITS ---
EXAMINATION: XR CHEST CLINICAL INFORMATION: Shortness of breath COMPARISON: Previous chest x-ray most recent November 2018 TECHNIQUE: Frontal view of the chest was obtained. FINDINGS: Normal heart size. Post-CABG changes. Hilar and mediastinal contours are unremarkable. Question small infiltrate at the right lung base. Lungs are otherwise clear. No pleural effusion or pneumothorax. Degenerative changes of the thoracic spine. Median sternotomy wires. XR/XR chest 1V IMPRESSION: Question small infiltrate at the right lung base.
--- NOTE | 2023-09-25 17:03 | ECG_ITS ---
Test Reason : SHORTNESS OF BREATH Blood Pressure : / mmHG Vent. Rate : 082 BPM Atrial Rate : 082 BPM P-R Int : 150 ms QRS Dur : 126 ms QT Int : 440 ms P-R-T Axes : 079 -61 074 degrees QTc Int : 514 ms Sinus rhythm with Premature atrial complexes Left anterior fascicular block Right bundle branch block Abnormal ECG When compared with ECG of 26-FEB-2019 15:08, Premature atrial complexes are now Present Vent. rate has increased BY 38 BPM Right bundle branch block is now Present Referred By: Nina Wells Electronically Signed By:SONIA GUERRERO MD
--- NOTE | 2023-09-25 17:18 | ED_ITS ---
HPI - SOB/Dyspnea General Chief Complaint: Upper Respiratory Symptoms Stated Complaint: fell exiting car after COPD appointment,feels weak Time Seen by Provider: 09/25/23 17:03 Source: family and EMS Mode of arrival: EMS History of Present Illness HPI Narrative: 73-year-old male known COPD patient, apparently has run out of oxygen for a an unknown period of time did not have a head strike as his son caught him but presents on 100% non-rebreather with shortness of breath. Related Data Home Medications Medication Instructions Recorded Confirmed furosemide 80 mg tablet 40 mg PO DAILY@1300 09/25/23 09/25/23 furosemide 80 mg tablet 80 mg PO DAILY 09/25/23 09/25/23 Previous Rx's Medication Instructions Recorded apixaban 5 mg tablet (Eliquis) 5 mg PO BID #180 tabs 09/12/22 ropinirole 0.5 mg tablet 0.5 mg PO BEDTIME #90 tabs 09/12/22 blood sugar diagnostic (FreeStyle #200 ea 03/07/23 Lite Strips) blood-glucose meter (FreeStyle #1 ea 03/07/23 Lite Meter kit) lancets 28 gauge (FreeStyle #200 ea 03/07/23 Lancets) ascorbate calcium (vitamin C) 500 500 mg PO DAILY 30 days #30 tabs 04/12/23 mg tablet ferrous sulfate 325 mg (65 mg 325 mg PO Q OTHER DAY 30 days #15 04/12/23 iron) tablet tabs atorvastatin 80 mg tablet 80 mg PO BEDTIME 3 months #90 tabs 04/24/23 quetiapine 25 mg tablet 50 mg (2 x 25 mg) PO BEDTIME #30 04/25/23 tabs gabapentin 300 mg capsule 300 mg PO DAILY #30 caps 05/30/23 glipizide 10 mg tablet 10 mg PO QAM 90 days #90 tabs 06/06/23 zolpidem 5 mg tablet (Ambien) 5 mg PO BEDTIME PRN sleep 30 days 07/02/23 #30 tabs amlodipine 2.5 mg tablet 2.5 mg PO DAILY 3 months #90 tabs 09/05/23 dulaglutide 1.5 mg/0.5 mL 1.5 mg (0.5 mL) subcut QWEEK 28 09/05/23 subcutaneous pen injector days #2 mL metoprolol tartrate 25 mg tablet 12.5 mg (1/2 x 25 mg) PO BID #90 09/17/23 tabs pantoprazole 40 mg tablet,delayed 40 mg PO DAILY #90 tabs 09/17/23 release doxycycline hyclate 100 mg capsule 100 mg PO BID #20 caps 09/25/23 fluticasone fur. 200 mcg-umeclid 1 inh inhalation DAILY #60 ea 09/25/23 62.5 mcg-vilant 25 mcg inhalat.powder (Trelegy Ellipta) ipratropium 0.5 mg-albuterol 3 mg 3 ml inhalation BID PRN wheezing 09/25/23 (2.5 mg base)/3 mL nebulization #180 mL soln prednisone 20 mg tablet 40 mg (2 x 20 mg) PO DAILY #10 tabs 09/25/23 Allergies Allergy/AdvReac Type Severity Reaction Status Date / Time No Known Allergies Allergy Verified 09/25/23 14:31 [No Known Allergies*] Review of Systems 2 Review of Systems: Pertinent positives and negatives as reported in the [facility] Past Medical History Source: nursing notes reviewed Medical History Cocaine use Type 2 diabetes mellitus Chronic heart failure with preserved ejection fraction Stroke Essential hypertension Sinus bradycardia Paroxysmal atrial fibrillation Atherosclerotic cardiovascular disease Surgical History History of coronary artery bypass graft x 3 (~11/07/16) Family History Family History Father No problems noted. Mother Heart attack Social History Social History Housing: Apartment Alcohol intake: never Patient Tobacco Use Status: Current everyday Tobacco user Cigarette Packs Per Day: 2 Cigarettes Per Day: 40 Years Smoked: 60 +/- e-Cigarette/Vaping Use: Never Used Second Hand Smoke Exposure: No Use of substances other than those prescribed or required for medical reasons: No Substance Use Type: Crack/Cocaine and Other Advance Directives: No Advance Directives Information Provided: No service: No Current occupational status: retired Current occupational exposures/hazards: No Cognitive needs: No Hearing needs: No Vision needs: No Physical Exam 2 Vital Signs: Vital Signs: Last Vital Signs Temp 97.7 F 09/25/23 22:02 Pulse 88 09/25/23 22:02 Resp 22 H 09/25/23 22:02 BP 146/62 H 09/25/23 22:02 Pulse Ox 84 L 09/25/23 22:02 O2 Del Method BiPAP 09/25/23 22:02 O2 Flow Rate 100 09/25/23 22:02 Oxygen Flow Rate 15 09/25/23 16:58 BMI result Body Mass Index 24.2 VITAL SIGNS: Reviewed. GENERAL: Elderly, in moderate distress. HEAD: Normocephalic/atraumatic EYES: PERRLA, EOMI EARS: Ext canals without abnormality NOSE: Nares patent bilateral OROPHARYNX: no oral lesions noted, posterior pharynx clear NECK: Supple, no adenopathy LUNGS: Diminished breath sounds throughout, no asymmetrical findings of decreased breath sounds, no expiratory wheeze or rhonchi noted. SpO2<79> 1 100% non-rebreather CARDIOVASCULAR: Regular rate and rhythm without noted murmurs, no JVD or lower extremity edema. ABDOMEN: Soft, non-tender, non-distended with bowel sounds. MUSCULOSKELETAL: No tenderness, deformities, or effusions noted on gross inspection. EXTREMITIES: No cyanosis, clubbing or edema. SKIN: Inspection of the skin reveals no rashes NEUROLOGIC: Alert and oriented x 3. Strength and sensation to light touch were grossly intact x 4. Medications Administered Discontinued Medications Generic Name Dose Route Start Last Admin Trade Name Freq PRN Reason Stop Dose Admin Albuterol Sulfate 7.5 mg/ 10 mg 09/25/23 19:32 09/25/23 19:37 Albuterol Sulfate 2.5 mg INHALE 09/25/23 19:33 10 mg ONCE ONE Administration Albuterol Sulfate 7.5 mg/ 0 mg 09/25/23 17:48 09/25/23 17:57 Albuterol/Ipratropium 3 ml INHALE 09/25/23 17:49 5 each ONCE ONE Administration Sodium Chloride 500 mls @ 999 mls/hr 09/25/23 18:15 09/25/23 20:25 Ns IV 09/25/23 18:45 Infused .Q31M CHARLES Infusion Sodium Chloride 500 mls @ 999 mls/hr 09/25/23 19:15 09/25/23 20:22 Ns IV 09/25/23 19:45 Not Given .Q31M CHARLES Piperacillin Sod/Tazobactam 50 mls @ 100 mls/hr 09/25/23 19:04 09/25/23 20:25 Sod 3.375 gm/ Sodium Chloride IV 09/25/23 19:33 Infused ONCE ONE Infusion Methylprednisolone Sodium Succinate 125 mg 09/25/23 17:03 09/25/23 17:25 Methylprednisolone Sod Succ 125 Mg/2 Ml Vial IVPUSH 09/25/23 17:04 125 mg ONCE ONE Administration Medical Decision Making Medical Decision Making [facility] Narrative: 1715: 73-year-old male with history and clinical presentation, DDX: Very low clinical suspicion for COPD as primary inciting event appears to be patient did not have access to either oxygen or inhaled medications, patient does have a history of smoking as well as cocaine use. He is not febrile and therefore low clinical suspicion for infectious etiology, there is a possibility of CHF exacerbation. - INTERVENTION: Bipap 12/7/FiO2-100%, ABG 1727: Patient is now noted to be at 88%, appears to have improved mentation. Awaiting ABG. 1730: ABG demonstrates compensated respiratory acidosis with hypoxia and a PO2 of 58 and oxygen saturation of 86, pH-7.46 1740: Sinus rhythm with PACs, HR-82, no STEMI, TX within normal limits, QRS/QTC consistent with right bundle branch block at baseline (11/20/2022) 1748: Lab called to inform me that lactic acid is 4.0 to be clear this is not secondary to underlying infection, patient has no SIRS response and although he is hypoxic he was off of prescribed oxygen for an unknown period of time he is afebrile, no tachycardia and no leukocytosis. At this time I do not have plans to bolus this patient with 30ml/kg 1901: I have reviewed the chest x-ray which is now reporting possibility of right lower lobe infiltrate, will cover with antibiotics but due to history of CHF and current hypoxic state will refrain from sepsis bolus fluids, but patient did receive 500 cc of crystalloids. 190: I reviewed all investigations and hematologic indices are negative for leukocytosis, there is a mild left shift, patient is otherwise afebrile, no evidence of thrombocytopenia or anemia. Coagulation studies are within normal limits. Chemistry indices demonstrate an NATALYA with hyperglycemia, metabolic alkalosis. 2014: Repeat lactic acid is improving, attempted deescalation of supplemental oxygen and on review of repeat ABG showed some improvements p.o. to and oxygenation but worsening hypercapnia. Patient has received a total of 2 breathing treatments as well as steroids but had to be placed back on rescue bipap. 2210: I discussed the case with the retail commission sales associate who accepts admission. Differential Diagnosis Differential Diagnoses: The differential diagnosis associated with the presentation includes Please see the discussion above Admission/Observation Consideration of admission/observation: Escalation of care including admission/observation considered Please see the discussion above Consult Healthcare Provider Management of the patient was discussed with: Hospitalist Please see the discussion above Lab Data MDM Lab Attestation statement: I reviewed the patient's lab results. Please see the discussion above 09/25/23 17:21 09/25/23 17:21 Labs: Lab Results 09/25/23 09/25/23 09/25/23 Range/Units 17:21 17:30 20:14 WBC 9.7 (4.8-10.8) X10*3/uL RBC 5.39 (4.60-5.80) X10*6/uL Hgb 14.2 (14.0-18.0) g/dl Hct 47.0 (42.0-52.0) % MCV 87.2 (80.0-98.0) fL MCH 26.3 L (27.0-33.0) pg MCHC 30.2 L (31.0-36.0) g/dl RDW 12.9 (11.0-16.0) % Plt Count 188 D (160-400) X10*3/uL MPV 11.8 (9.4-12.4) fL Immature Gran % (Auto) 0.4 (0.0-0.4) % Neut % (Auto) 85.8 H (45-73) % Lymph % (Auto) 7.4 L (20-40) % Jerauld % (Auto) 5.8 (2-11) % Eos % (Auto) 0.2 (0-4) % Baso % (Auto) 0.4 (0-2) % Lymph # (Auto) 0.7 L (1.2-4.9) X10*3/uL Jerauld # (Auto) 0.6 (0.1-1.2) X10*3/uL Eos # (Auto) 0.0 (0.0-0.4) X10*3/uL Baso # (Auto) 0.0 (0.0-0.2) X10*3/uL Abs Immat Gran (auto) 0.04 H (0.00-0.03) X10*3/uL Absolute Neuts (auto) 8.3 (2.0-8.3) x10*3/uL Absolute Nucleated RBC 0.000 (0.0-0.012) X10*3/uL Nucleated RBC % (auto) 0.0 (0.0-0.2) /100WBC PT 12.2 (11.1-13.3) SEC INR 1.0 (0.9-1.1) O2 Saturation 86.0 % ABG pH at Pt Temp 7.46 H (7.35-7.45) ABG pCO2 at Pt Temp 89 H* (32-45) mmHg ABG pO2 at Pt Temp 58 L (83-108) mmHg ABG HCO3 63 H (22-26) mmol/L ABG Base Excess (Actual) 31.7 mmol/L VBG pH 7.44 H (7.32-7.43) VBG pCO2 88 mmHg VBG pO2 47 mmHg VBG HCO3 60 H (22-26) mmol/L VBG O2 Saturation 73.0 % VBG Base Excess 28.1 mmol/L Sodium 140 (135-145) mmol/L Potassium 3.5 (3.3-5.1) mmol/L Chloride 75 L D (96-108) mmol/L Carbon Dioxide 42 H* D (22-29) mmol/L Anion Gap 27 H (12-20) BUN 20 H (9-16) mg/dL Creatinine 1.70 H (0.5-1.4) mg/dL Estim Creat Clear Calc 39.3 Estimated GFR 40 Random Glucose 232 H (60-115) mg/dL Lactic Acid 4.0 H* (0.5-2.0) mmol/L Lactic Acid F/U @ 2Hr 2.5 H* (0.5-2.0) mmol/L Calcium 9.9 D (8.4-10.2) mg/dL Total Bilirubin 0.9 (0.0-1.0) mg/dL AST 25 (5-37) U/L ALT 14 (0-40) U/L Alkaline Phosphatase 82 (39-117) U/L B-Natriuretic Peptide 86 (<100) pg/mL Total Protein 8.8 H (6.5-8.0) g/dL Albumin 4.1 (3.5-5.0) g/dL Beta-Hydroxybutyrate 1.42 H (0.02-0.27) mmol/L 09/25/23 Range/Units 21:31 WBC (4.8-10.8) X10*3/uL RBC (4.60-5.80) X10*6/uL Hgb (14.0-18.0) g/dl Hct (42.0-52.0) % MCV (80.0-98.0) fL MCH (27.0-33.0) pg MCHC (31.0-36.0) g/dl RDW (11.0-16.0) % Plt Count (160-400) X10*3/uL MPV (9.4-12.4) fL Immature Gran % (Auto) (0.0-0.4) % Neut % (Auto) (45-73) % Lymph % (Auto) (20-40) % Jerauld % (Auto) (2-11) % Eos % (Auto) (0-4) % Baso % (Auto) (0-2) % Lymph # (Auto) (1.2-4.9) X10*3/uL Jerauld # (Auto) (0.1-1.2) X10*3/uL Eos # (Auto) (0.0-0.4) X10*3/uL Baso # (Auto) (0.0-0.2) X10*3/uL Abs Immat Gran (auto) (0.00-0.03) X10*3/uL Absolute Neuts (auto) (2.0-8.3) x10*3/uL Absolute Nucleated RBC (0.0-0.012) X10*3/uL Nucleated RBC % (auto) (0.0-0.2) /100WBC PT (11.1-13.3) SEC INR (0.9-1.1) O2 Saturation 93.0 % ABG pH at Pt Temp 7.36 (7.35-7.45) ABG pCO2 at Pt Temp 102 H* (32-45) mmHg ABG pO2 at Pt Temp 76 L (83-108) mmHg ABG HCO3 58 H (22-26) mmol/L ABG Base Excess (Actual) 25.6 mmol/L VBG pH (7.32-7.43) VBG pCO2 mmHg VBG pO2 mmHg VBG HCO3 (22-26) mmol/L VBG O2 Saturation % VBG Base Excess mmol/L Sodium (135-145) mmol/L Potassium (3.3-5.1) mmol/L Chloride (96-108) mmol/L Carbon Dioxide (22-29) mmol/L Anion Gap (12-20) BUN (9-16) mg/dL Creatinine (0.5-1.4) mg/dL Estim Creat Clear Calc Estimated GFR Random Glucose (60-115) mg/dL Lactic Acid (0.5-2.0) mmol/L Lactic Acid F/U @ 2Hr (0.5-2.0) mmol/L Calcium (8.4-10.2) mg/dL Total Bilirubin (0.0-1.0) mg/dL AST (5-37) U/L ALT (0-40) U/L Alkaline Phosphatase (39-117) U/L B-Natriuretic Peptide (<100) pg/mL Total Protein (6.5-8.0) g/dL Albumin (3.5-5.0) g/dL Beta-Hydroxybutyrate (0.02-0.27) mmol/L Independent Interpretation I performed an independent interpretation of an: EKG Interpretation: Sinus rhythm with PACs, HR-82, no STEMI, RBBB at baseline, TX within normal limits but QRS/QTC are within normal limits. Radiology Impression Discussion of test interpretation with radiology: I have reviewed the radiologist's reading. Radiologist Impression: Please see the discussion above External Record Review External record reviewed: Outpatient record, Prior outpatient labs and Prior outpatient radiology Chronic Conditions Patient?s care impacted by: Diabetes and Other COPD, cocaine use, paroxysmal atrial fibrillation, CHF Procedures EJ/Peripheral Line Arm R: Time Out Performed: No Skin Cleansed in Sterile Fashion: Yes Size (gauge): 18 IV Secured and Dressing Applied: Yes Patient Tolerated Procedure: well Additional Comments: This peripheral line was placed under ultrasound guidance. Critical Care Time Critical Care Time Critical Care Time: Yes Total Critical Care Time: 90 Attestation: I personally attest to this time spent taking care of the patient. Discharge Plan Discharge Clinical Impression: Acute respiratory failure, Pneumonia, Sepsis, COPD exacerbation Patient Disposition: Admitted As Inpatient
[2023-09-25] MEDS: methylPREDNISolone Sod Succ 125 MG/2 ML VIAL IVPUSH (17:25)
--- NOTE | 2023-09-25 17:28 | PC.NURSE ---
patient placed on bipap, settings / 100%. patient in high fowlers, satting 85-88%. two IV lines placed, #20 in left hand and 18# in right AC.
[2023-09-25 17:29] LABS: MANUAL DIFF FLAG NO
[2023-09-25 17:30] LABS: Basophils Percent Auto 0.4 % (0-2); Eosinophils Percent Auto 0.2 % (0-4); Hemoglobin 14.2 g/dl (14.0-18.0); Imm Gran Abs Auto 0.04 X10*3/uL (0.00-0.03); Imm Gran Pct Auto 0.4 % (0.0-0.4); Lymphocytes Absolute Auto 0.7 X10*3/uL (1.2-4.9); Lymphocytes Percent Auto 7.4 % (20-40); Mean Corpuscular HGB Conc 30.2 g/dl (31.0-36.0); Mean Corpuscular Hemoglobin 26.3 pg (27.0-33.0); Mean Corpuscular Volume 87.2 fL (80.0-98.0); Mean Platelet Volume 11.8 fL (9.4-12.4); Monocytes Absolute Auto 0.6 X10*3/uL (0.1-1.2); Monocytes Percent Auto 5.8 % (2-11); Neutrophils Absolute Auto 8.3 x10*3/uL (2.0-8.3); Neutrophils Percent Auto 85.8 % (45-73); Platelet Count 188 X10*3/uL (160-400); Red Blood Count 5.39 X10*6/uL (4.60-5.80); Red Cell Distribution Width 12.9 % (11.0-16.0); White Blood Count 9.7 X10*3/uL (4.8-10.8)
[2023-09-25 17:35] LABS: VBG Base Excess 28.1 mmol/L; VBG HCO3 60 mmol/L (22-26); VBG pCO2 88 mmHg; VBG pH 7.44 (7.32-7.43); VBG pO2 47 mmHg
[2023-09-25 17:37] LABS: ABG Base Excess 31.7 mmol/L; ABG HCO3 63 mmol/L (22-26); ABG pCO2 89 mmHg (32-45); ABG pH 7.46 (7.35-7.45); ABG pO2 58 mmHg (83-108)
[2023-09-25 17:38] LABS: Venous Blood Gas Refer to POC result
[2023-09-25 17:40] LABS: Prothrombin Time 12.2 SEC (11.1-13.3)
[2023-09-25 17:49] LABS: Alanine Aminotransferase 14 U/L (0-40); Albumin Level 4.1 g/dL (3.5-5.0); Alkaline Phosphatase 82 U/L (39-117); Anion Gap 27 (12-20); Aspartate Amino Transferase 25 U/L (5-37); Bilirubin Total 0.9 mg/dL (0.0-1.0); Blood Urea Nitrogen 20 mg/dL (9-16); Calcium 9.9 mg/dL (8.4-10.2); Carbon Dioxide 42 mmol/L (22-29); Chloride 75 mmol/L (96-108); Creatinine Clr Calc Pharmacy 39.3; Estimated Glomerular Filt Rate 40; Glucose Random 232 mg/dL (60-115); Potassium 3.5 mmol/L (3.3-5.1); Sodium 140 mmol/L (135-145); Total Protein 8.8 g/dL (6.5-8.0)
[2023-09-25 17:53] LABS: B Type Natriuretic Peptide 86 pg/mL (<100)
[2023-09-25] MEDS: Albuterol Sulfate 7.5 MG, Albuterol/Iprat 2.5/0.5MG 3 ML 3 ML INHALE (17:57)
[2023-09-25 19:00] LABS: ABG Refer to POC result
[2023-09-25 19:28] LABS: Reflex Lactate? Lactic Acid Added
[2023-09-25] MEDS: 0.9 % Sodium Chloride 500 ML 999 ML IV (19:30)
[2023-09-25] MEDS: Piperacillin Sodium/Tazobactam 3.375 GM in 0.9 % Sodium Chloride 50 ML IV (19:32)
[2023-09-25] MEDS: Albuterol Sulfate 7.5 MG, Albuterol Sulfate (0.083%) 2.5 MG 10 MG INHALE (19:37)
[2023-09-25 20:00] LABS: Beta-Hydroxybutyrate 1.42 mmol/L (0.02-0.27)
--- NOTE | 2023-09-25 20:09 | PHA.MEDREC ---
Pharmacy Consult ? Medication Reconciliation Pharmacy has completed the medication reconciliation. Patient family member confirmed medications. Trelegy, Prednisone, Doxycyline and Duoneb were just prescribed today therefore have not been started yet. Bee Linn, PharmD
--- NOTE | 2023-09-25 20:39 | MHC.EDTECH ---
This tech took over care of patient at 1930,hourly rounds and vitals completed,patient's O2 sats were at 83,RN and made aware and resp. was called and are on there way,at this time this tech was obtaining repeat lactic and patient;s O2 dropped to at 78%.RN was called to bedside. family is at bedside and call webb within reach.
[2023-09-25 20:40] LABS: ~Lactic Acid-LAB USE ONLY 2.5 mmol/L (0.5-2.0)
[2023-09-25 21:39] LABS: ABG Refer to POC result
[2023-09-25 21:39] LABS: ABG Base Excess 25.6 mmol/L; ABG HCO3 58 mmol/L (22-26); ABG pCO2 102 mmHg (32-45); ABG pH 7.36 (7.35-7.45); ABG pO2 76 mmHg (83-108)
--- NOTE | 2023-09-25 22:03 | MHC.EDTECH ---
Hourly rounds and vitals completed,patient's o2 level is at 84%,patient is on bipap and Resp.and provider are at bedside and RN aware.
[2023-09-25 22:24] LABS: Reflex Lactate? 2 Y
[2023-09-25] MEDS: Furosemide 100 MG/10 ML VIAL 80 MG IVPUSH (22:37)
[2023-09-25] MEDS: acetaZOLAMIDE sodium 500 MG VIAL 250 MG IVPUSH (22:37)
[2023-09-25 22:48] LABS: ~Lactic Acid-LAB USE ONLY 5.2 mmol/L (0.5-2.0)
--- NOTE | 2023-09-25 22:48 | MHC.EDTECH ---
This tech applied a [place] catheter due to patient getting Lasix,DR Wells gave this tech a verbal okCURLY Anil at bedside.Patient tolerated placement well and repeat labs drawn and sent to lab, vitals were taken and patient was repositioned and pillows placed for comfort.
[2023-09-25 22:53] LABS: Anion Gap 23 (12-20); Blood Urea Nitrogen 23 mg/dL (9-16); Calcium 9.4 mg/dL (8.4-10.2); Carbon Dioxide 44 mmol/L (22-29); Chloride 77 mmol/L (96-108); Creatinine Clr Calc Pharmacy 36.9; Estimated Glomerular Filt Rate 37; Glucose Random 316 mg/dL (60-115); Potassium 2.8 mmol/L (3.3-5.1); Sodium 141 mmol/L (135-145)
--- NOTE | 2023-09-25 22:58 | MHC.EDTECH ---
Belongings list completed, and covid swab obtained and sent to lab.
--- NOTE | 2023-09-25 23:10 | PM.CCHP ---
History of Present Illness Date of Service: 09/25/23 Attending physician on admission: Gus Groves Chief Complaint: dyspnea The patient is a 73-year-old male with a past medical history of ? COPD ( on 2 L at home),? diabetes mellitus,? congestive heart failure,? CAD, hypertension, paroxysmal AFib (on Eliquis), and substance (cocaine) abuse? who presented to the emergency room for dyspnea.? Patient reported fall while exiting the car after? visiting pulmonary office,? patient reported he ran out of oxygen at home for unknown amount of time. According to the daughter the patient has had increased amount of confusion send the past 2 weeks.? ?On arrival to the emergency room patient required? patient hypoxic,? requiring 100% on non-rebreather and tachypneic.?? ?Laboratory data significant for? chloride 75, serum bicarb 42, anion gap 27, 120, creatinine? 1.7, random glucose 232,? beta? hydroxybutyrate? 1.42..? Initial lactic was 4,? 2 hours later 2.5? and later up to 5.2.? ?ABG:? 7. 46/89/58/63? later? 7.36/102/76/50? ED course:? ?Patient received a total of a 1L bolus, Solu-Medrol, 7.5 albuterol x 2,? Zosyn and 80 of Lasix.? Placed on BiPAP. Review of Systems Review of Systems: Yes Unobtainable due to mental status PMFSH Past Medical History Medical History Cocaine use Type 2 diabetes mellitus Chronic heart failure with preserved ejection fraction Stroke Essential hypertension Sinus bradycardia Paroxysmal atrial fibrillation Atherosclerotic cardiovascular disease Family History Family History Father No problems noted. Mother Heart attack Surgical History Surgical History History of coronary artery bypass graft x 3 (~11/07/) Social History Social History Household Members: Children Household Members Other:: LIVES WITH SON Housing: Apartment Unable to assess alcohol history related to: Unknown Alcohol intake: never Patient Tobacco Use Status: Tobacco use Unknown Cigarette Packs Per Day: 2 Cigarettes Per Day: 40 Years Smoked: 60 +/- e-Cigarette/Vaping Use: Never Used Second Hand Smoke Exposure: No Use of substances other than those prescribed or required for medical reasons: Unknown Substance Use Type: Crack/Cocaine and Other Currently Displaying Signs/Symptoms of Drug Intoxication Withdrawal: No Spiritual Healthcare Practices: UNKNOWN [facility] Healthcare Practices: UNKNOWN Cultural Healthcare Practices: UNKNOWN Advance Directives: No Advance Directives Information Provided: No Nutrition Risks: No Nutritional Risk service: No Current occupational status: retired Current occupational exposures/hazards: No Cognitive needs: No Hearing needs: No Vision needs: No Meds Allergies Allergy/AdvReac Type Severity Reaction Status Date / Time No Known Allergies Allergy Verified 09/25/23 14:31 [No Known Allergies*] Active Medications: Current Medications Heparin Sodium (Porcine) (Heparin Sodium,Porcine 5,000 Unit/Ml Vial) 5,000 unit SUBCUT TID [facility] Home Medications Medication Instructions Recorded Confirmed Last Taken Type furosemide 80 mg tablet 40 mg PO DAILY@1300 09/25/23 09/25/23 Unknown History furosemide 80 mg tablet 80 mg PO DAILY 09/25/23 09/25/23 Unknown History Physical Exam Vital Signs: Vital Signs: Last Vital Signs Temp 97.7 F 09/25/23 22:02 Pulse 95 09/25/23 22:48 Resp 20 09/25/23 22:48 BP 141/60 H 09/25/23 22:48 Pulse Ox 91 L 09/25/23 22:48 O2 Del Method BiPAP 09/25/23 22:48 O2 Flow Rate 100 09/25/23 22:48 Oxygen Flow Rate 15 09/25/23 16:58 BMI result Body Mass Index 24.2 ?General:? Alert oriented xperson and place. Confused, per daughter more confused in the past few weeks ?HEENT:? Head is normocephalic, atraumatic, pupils equal round reactive to light accommodation bilaterally.? Extraocular movements appear intact.? Buccal mucosa is dry, Neck is supple ?Cardiac:? Clear S1-S2, no murmurs rubs or gallops. ?Pulmonary:? expiratory wheezes, on BiPAP 16/6/100% ?Abdomen:? ?Abdomen soft, diffuse tenderness, non-distended. Normal bowel sounds. No pulsatile mass. No hepatosplenomegaly. ?Musculoskeletal:? Moving all 4 extremities upon request a major joints, there is no crepitus or tenderness.? The strength is 5/5 bilaterally and throughout all 4 extremities.? Gait not assessed at this point. ?Neurologic:?Confused No focal deficits noted. Motor strength as above.?? ?Skin:? Intact, no lesions, edema, erythema, clubbing or cyanosis.? No ulcers. Vascular:? 2+ pulses upper and lower extremities distally.? Results Labs 09/26/23 04:53 09/26/23 04:53 Labs: Laboratory Results - last 24 hr 09/25/23 09/25/23 09/25/23 17:21 17:30 20:14 MCV 87.2 MCH 26.3 L MCHC 30.2 L RDW 12.9 Plt Count 188 D MPV 11.8 Immature Gran % (Auto) 0.4 Neut % (Auto) 85.8 H Lymph % (Auto) 7.4 L [place] % (Auto) 5.8 Eos % (Auto) 0.2 Baso % (Auto) 0.4 Lymph # (Auto) 0.7 L [place] # (Auto) 0.6 Eos # (Auto) 0.0 Baso # (Auto) 0.0 Abs Immat Gran (auto) 0.04 H Absolute Neuts (auto) 8.3 Absolute Nucleated RBC 0.000 Nucleated RBC % (auto) 0.0 PT 12.2 INR 1.0 O2 Saturation 86.0 ABG pH at Pt Temp 7.46 H ABG pCO2 at Pt Temp 89 H* ABG pO2 at Pt Temp 58 L ABG HCO3 63 H ABG Base Excess (Actual) 31.7 VBG pH 7.44 H VBG pCO2 88 VBG pO2 47 VBG HCO3 60 H VBG O2 Saturation 73.0 VBG Base Excess 28.1 Anion Gap 27 H Estim Creat Clear Calc 39.3 Estimated GFR 40 Random Glucose 232 H Lactic Acid 4.0 H* Lactic Acid F/U @ 2Hr 2.5 H* Lactic Acid F/U @ 4Hr Calcium 9.9 D Total Bilirubin 0.9 AST 25 ALT 14 Alkaline Phosphatase 82 B-Natriuretic Peptide 86 Total Protein 8.8 H Albumin 4.1 Beta-Hydroxybutyrate 1.42 H 09/25/23 09/25/23 21:31 22:32 MCV MCH MCHC RDW Plt Count MPV Immature Gran % (Auto) Neut % (Auto) Lymph % (Auto) [place] % (Auto) Eos % (Auto) Baso % (Auto) Lymph # (Auto) [place] # (Auto) Eos # (Auto) Baso # (Auto) Abs Immat Gran (auto) Absolute Neuts (auto) Absolute Nucleated RBC Nucleated RBC % (auto) PT INR O2 Saturation 93.0 ABG pH at Pt Temp 7.36 ABG pCO2 at Pt Temp 102 H* ABG pO2 at Pt Temp 76 L ABG HCO3 58 H ABG Base Excess (Actual) 25.6 VBG pH VBG pCO2 VBG pO2 VBG HCO3 VBG O2 Saturation VBG Base Excess Anion Gap 23 H Estim Creat Clear Calc 36.9 Estimated GFR 37 Random Glucose 316 H Lactic Acid Lactic Acid F/U @ 2Hr Lactic Acid F/U @ 4Hr 5.2 H* Calcium 9.4 Total Bilirubin AST ALT Alkaline Phosphatase B-Natriuretic Peptide Total Protein Albumin Beta-Hydroxybutyrate Imaging Radiologist's Impressions: Impressions Chest X-Ray 09/25/23 17:55 IMPRESSION: Question small infiltrate at the right lung base. Assessment and Plan (1) Acute respiratory failure with hypoxia and hypercapnia: Status: Acute (2) COPD exacerbation: Status: Acute (3) DKA (diabetic ketoacidosis): Status: Acute (4) Congestive heart failure: Status: Acute (5) NATALYA (acute kidney injury): Status: Acute (6) Type 2 diabetes mellitus: Status: Acute Plan Neuro:? No acute issues. Cardiac:?? Elevated lactic-? elevated lactic is not? due to? sepsis,? white count is flat,? no evidence of severe infection. ? CTA chest/ abdomen with no acute findings.? This is likely due to demand? from hypoxia Pulmonary:?? acute hypoxic and hypercapnic respiratory failure secondary to COPD exacerbation. CTA chest negative for COPD, does have left lower lobe effusion.? Patient was without oxygen at home for an unknown amount of days.? According to daughter has been confused in the past few weeks.? Received Sozyn in ED.? Will give systemic glucocorticoids, nebulized bronchodilators and Diamox.? Keep 02 saturation 88-92%.? Will give azithromycin as copd exac protocol Renal:?? NATALYA:? nonoliguric. ? Patient?s daughter reported? patient will poor? p.o. Intake for the past 2 weeks. This is likely due to? hypoperfusion, . Received 1 liter bolus. Cont to check renal indices? Endo:?? Dka-? patient with elevated anion gap,? elevated blood sugar. Will start insulin drip until gap is close. Follow DKA protocol? GI:? No acute issues. ID:? No acute issues Heme/Onc:? No acute issues. Psych:? No acute issues. Miscellaneous:? No acute issues. Prophylaxis: On eliquis at home, will cont doesn't require GI prophylaxis Diet:? NPO while on BIPAP Critical care time spent:? 60 minutes Case discussed with attending Dr Groves
[2023-09-25 23:17] LABS: COVID-19 Test Negative (Negative); IDNOW Serial# BCCEAD1C
[2023-09-25] MEDS: iohexoL 350 MG/ML 100 ML INFUS..BTL 70 ML IV (23:31)
[2023-09-25 23:37] LABS: Glucose, Whole Blood 297 mg/dL (60-115)
[2023-09-26] VITALS (21 sets, daily range): BP systolic 109–159; BP diastolic 46–96; PULSE 87–114; RESP 12–25; TEMP 36.1–37.7; O2SAT 87–98; BMI 23.8
--- NOTE | 2023-09-26 00:25 | MHC.EDTECH ---
Patient urinated 200CC ,urine sample collected and sent to lab. Patient took [place] Cath,. off and Bipap RN aware and Resp at bedside
[2023-09-26 00:35] LABS: Appearance Urine Clear; Color Urine Yellow; Glucose Urine UA Negative (Negative); Leukocyte Esterase Urine Negative (Negative); Nitrite Urine Negative (Negative); PH 5.5 (5.0-9.0); Specific Gravity - Urine 1.015 (1.005-1.025); Urine Blood Negative (Negative); Urine Ketones Negative (Negative); Urine Protein Trace mg/dL (Neg-Trace)
[2023-09-26 00:41] LABS: Amphetamine Screen Urine Not Detected (Not Detect); Barbiturates, Urine Not Detected (Not Detect); Benzodiazepines Screen Urine Not Detected (Not Detect); Cannabinoid Screen Urine Not Detected (Not Detect); Cocaine Screen Urine Not Detected (Not Detect); Fentanyl, urine Not Detected (Not Detect); Opiate Screen Urine Not Detected (Not Detect); Phencyclidine Screen Urine Not Detected (Not Detect)
[2023-09-26 00:47] LABS: Glucose, Whole Blood 272 mg/dL (60-115)
[2023-09-26] MEDS: KCl 40 mEq in 5% Dex/0.45% Sod 40 MEQ/1,000 ML IV.SOLN 80 MEQ IVCONT (00:50)
[2023-09-26] MEDS: Insulin Regular/NS 100 UNIT/100 ML PLAST..BAG IVCONT (01:01)
[2023-09-26] MEDS: OLANZapine 10 MG VIAL 5 MG IM ×2 (01:17→04:25)
[2023-09-26] MEDS: Potassium Chloride/H20 10 MEQ/100 ML PIGGYBACK 100 MEQ IV ×4 (01:31→05:08)
[2023-09-26 02:02] LABS: VBG Base Excess 24.8 mmol/L; VBG HCO3 57 mmol/L (22-26); VBG pCO2 95 mmHg; VBG pH 7.38 (7.32-7.43); VBG pO2 49 mmHg
[2023-09-26 02:15] LABS: Lactic Acid 4.8 mmol/L (0.5-2.0)
[2023-09-26 02:15] LABS: Venous Blood Gas Refer to POC result
[2023-09-26 02:20] LABS: Anion Gap 18 (12-20); Blood Urea Nitrogen 24 mg/dL (9-16); Calcium 9.1 mg/dL (8.4-10.2); Carbon Dioxide 48 mmol/L (22-29); Chloride 78 mmol/L (96-108); Creatinine Clr Calc Pharmacy 36.7; Estimated Glomerular Filt Rate 37; Glucose Random 308 mg/dL (60-115); Magnesium 1.3 mg/dL (1.6-2.6); Phosphorus 3.3 mg/dL (2.7-4.5); Potassium 2.9 mmol/L (3.3-5.1); Sodium 141 mmol/L (135-145)
[2023-09-26] MEDS: Azithromycin 500 MG in 0.9 % Sodium Chloride 250 ML 125 MG IV (02:58)
[2023-09-26] MEDS: Magnesium Sulfate/H2O 2 GM/50 ML PIGGYBACK IV (03:13)
[2023-09-26 03:30] LABS: Glucose, Whole Blood 260 mg/dL (60-115)
[2023-09-26 04:01] LABS: Reflex Lactate? Lactic Acid Added
[2023-09-26 04:27] LABS: Glucose, Whole Blood 236 mg/dL (60-115)
[2023-09-26 05:02] LABS: Basophils Percent Auto 0.1 % (0-2); Hematocrit 39.9 % (42.0-52.0); Hemoglobin 12.5 g/dl (14.0-18.0); Imm Gran Abs Auto 0.07 X10*3/uL (0.00-0.03); Imm Gran Pct Auto 0.4 % (0.0-0.4); Lymphocytes Absolute Auto 0.4 X10*3/uL (1.2-4.9); MANUAL DIFF FLAG SCAN; Mean Corpuscular HGB Conc 31.3 g/dl (31.0-36.0); Mean Corpuscular Hemoglobin 26.8 pg (27.0-33.0); Mean Corpuscular Volume 85.4 fL (80.0-98.0); Mean Platelet Volume 11.4 fL (9.4-12.4); Monocytes Percent Auto 5.1 % (2-11); Neutrophils Absolute Auto 18.4 x10*3/uL (2.0-8.3); Neutrophils Percent Auto 92.4 % (45-73); Platelet Count 155 X10*3/uL (160-400); Red Blood Count 4.67 X10*6/uL (4.60-5.80); Red Cell Distribution Width 12.8 % (11.0-16.0); SCAN SMEAR FLAG 1; White Blood Count 19.9 X10*3/uL (4.8-10.8)
[2023-09-26 05:06] LABS: SLIDE REVIEW VERIFIED
[2023-09-26 05:06] LABS: VBG Base Excess 25.7 mmol/L; VBG HCO3 56 mmol/L (22-26); VBG pCO2 85 mmHg; VBG pH 7.42 (7.32-7.43); VBG pO2 91 mmHg
--- NOTE | 2023-09-26 05:15 | PC.NURSE ---
PT TO ICU AT 0045 FROM ER IN NO ACUTE DISTRESS. BIPAP FACEMASK ON AT 12/8 AND 90%O2. O2 SAT MID 90'S. RESP RATE 20-26. PT DENIES PAIN. HE IS DISORIENTED AND RESISTIVE TO CARE. TRYING TO PULL OUT IV'S. PULLED OFF EXTERNAL CATHETER. ATTEMPTING TO REMOVE BIPAP. REVIEW ASSISTANT AT BEDSIDE AND ORDERED ZYPREXA 5MG IM WHICH WAS GIVEN WITH SOME EFFECT BUT PT STARTED TO BECOME RESTLESS AGAIN AND TRYING TO CLIMB OOB. SECOND DOSE OF ZYPREXA 5MG GIVEN. AGAIN, SOME RESPONSE BUT STILL RESTLESS. WRIST RESTRAINTS APPLIED PER PROVIDER. ONE TO ONE SITTER AT BEDSIDE. [place] CATH RE-APPLIED. NO URINE SINCE 29. NO BLADDER DISTENSION NOTED BUT WILL SCAN BLADDER. VITALS/RHYTHM STABLE. TEMP AT THIS TIME 99.8R.
[2023-09-26 05:20] LABS: ~Lactic Acid-LAB USE ONLY 4.4 mmol/L (0.5-2.0)
[2023-09-26 05:23] LABS: Glucose, Whole Blood 211 mg/dL (60-115)
[2023-09-26 05:30] LABS: Albumin Level 3.4 g/dL (3.5-5.0); Anion Gap 20 (12-20); Blood Urea Nitrogen 24 mg/dL (9-16); Calcium 9.1 mg/dL (8.4-10.2); Carbon Dioxide 45 mmol/L (22-29); Chloride 80 mmol/L (96-108); Creatinine Clr Calc Pharmacy 38.2; Estimated Glomerular Filt Rate 38; Glucose Random 249 mg/dL (60-115); Magnesium 1.6 mg/dL (1.6-2.6); Phosphorus 2.1 mg/dL (2.7-4.5); Potassium 3.2 mmol/L (3.3-5.1); Sodium 142 mmol/L (135-145)
[2023-09-26 06:12] LABS: Glucose, Whole Blood 192 mg/dL (60-115)
[2023-09-26 06:58] LABS: Venous Blood Gas Refer to POC result
[2023-09-26 07:00] LABS: Reflex Lactate? 2 Y
[2023-09-26 07:14] LABS: Glucose, Whole Blood 197 mg/dL (60-115)
[2023-09-26] MEDS: Piperacillin Sodium/Tazobactam 4.5 GM in 0.9 % Sodium Chloride 100 ML IV (07:33)
[2023-09-26] MEDS: methylPREDNISolone Sod Succ 40 MG/ML VIAL IVPUSH (07:34)
[2023-09-26] MEDS: Potassium Phosphate/NS 15 MMOL/250 ML PLAST..BAG 62.5 MMOL IV (07:34)
[2023-09-26 08:09] LABS: ~Lactic Acid-LAB USE ONLY 2.9 mmol/L (0.5-2.0)
[2023-09-26] MEDS: Albuterol/Iprat 2.5/0.5MG 3 ML AMPUL.NEB INHALE ×2 (08:10→15:43)
[2023-09-26 08:13] LABS: Glucose, Whole Blood 173 mg/dL (60-115)
[2023-09-26] MEDS: levoFLOXacin/D5W 750 MG/150 ML PIGGYBACK 100 MG IV (08:57)
[2023-09-26] MEDS: acetaZOLAMIDE sodium 500 MG VIAL 250 MG IVPUSH ×2 (08:57→20:08)
[2023-09-26 09:03] LABS: Glucose, Whole Blood 201 mg/dL (60-115)
--- NOTE | 2023-09-26 09:08 | PC.NURSE ---
Assumed care at 0700 - Insulin gtt at 2u/hr at 0700
[2023-09-26 10:18] LABS: Glucose, Whole Blood 171 mg/dL (60-115)
[2023-09-26 11:10] LABS: Glucose, Whole Blood 152 mg/dL (60-115)
[2023-09-26 12:08] LABS: Glucose, Whole Blood 118 mg/dL (60-115)
[2023-09-26 12:09] LABS: VBG Base Excess 30.9 mmol/L; VBG HCO3 61 mmol/L (22-26); VBG pCO2 86 mmHg; VBG pH 7.45 (7.32-7.43); VBG pO2 112 mmHg
[2023-09-26 12:09] LABS: Venous Blood Gas Refer to POC result
--- NOTE | 2023-09-26 13:01 | P.PNCC_ITS ---
Subjective Subjective Date of Service: 09/26/23 Interval History: 73-year-old gentleman with underlying COPD on 2 L, diabetes mellitus, CHF, CAD, hypertension, AFib on Eliquis, cocaine abuse, recent development of confusion versus dementia over the last 2 months admitted on 09/26/2023 with dyspnea and acute on chronic hypoxic and hypercapnic respiratory failure initially requiring BiPAP support. He was started on acetazolamide and antibiotics for pulmonary aspiration component. Titrated off BiPAP overnight. Critical Care Time (minutes): 45 Physical Exam 2 Vital Signs: Vital Signs: Last Vital Signs Temp 97.2 F 09/26/23 12:00 Pulse 102 H 09/26/23 12:00 Resp 20 09/26/23 12:00 BP 139/53 L 09/26/23 12:00 Pulse Ox 92 09/26/23 12:00 O2 Del Method Oxymask 09/26/23 12:00 O2 Flow Rate 4 09/26/23 12:00 FiO2 60 09/26/23 10:00 Oxygen Flow Rate 15 09/25/23 16:58 BMI result Body Mass Index 23.8 Const: General: no acute distress, alert, awake and confusion O rientation/consciousness: confusion Eyes: Sclerae: sclerae normal EOM: EOMs intact bilaterally Neck: Neck: Yes no lymphadenopathy, Yes trachea midline and Yes supple Resp: Effort & Inspection: normal respiratory effort and no respiratory distress Auscultation: crackles (Right base greater than left) Cardio: Rate: regular rate Rhythm: regular rhythm Heart sounds: no gallops, no murmurs and no rubs GI: Palpation (GI): Soft to palpation and Other GI palpation findings present ( Nontender) Auscultation: normal bowel sounds Neuro: General: confusion Extrem: General: Yes no pedal edema, No clubbing and No cyanosis Objective Data Labs 09/26/23 04:53 09/26/23 04:53 Labs: Laboratory Results - last 24 hr 09/25/23 09/25/23 09/25/23 17:21 17:30 20:14 WBC 9.7 RBC 5.39 Hgb 14.2 Hct 47.0 MCV 87.2 MCH 26.3 L MCHC 30.2 L RDW 12.9 Plt Count 188 D MPV 11.8 Immature Gran % (Auto) 0.4 Neut % (Auto) 85.8 H Lymph % (Auto) 7.4 L [place] % (Auto) 5.8 Eos % (Auto) 0.2 Baso % (Auto) 0.4 Lymph # (Auto) 0.7 L [place] # (Auto) 0.6 Eos # (Auto) 0.0 Baso # (Auto) 0.0 Abs Immat Gran (auto) 0.04 H Absolute Neuts (auto) 8.3 Absolute Nucleated RBC 0.000 Nucleated RBC % (auto) 0.0 Smear Tech's Comments PT 12.2 INR 1.0 O2 Saturation 86.0 ABG pH at Pt Temp 7.46 H ABG pCO2 at Pt Temp 89 H* ABG pO2 at Pt Temp 58 L ABG HCO3 63 H ABG Base Excess (Actual) 31.7 VBG pH 7.44 H VBG pCO2 88 VBG pO2 47 VBG HCO3 60 H VBG O2 Saturation 73.0 VBG Base Excess 28.1 Sodium 140 Potassium 3.5 Chloride 75 L D Carbon Dioxide 42 H* D Anion Gap 27 H BUN 20 H Creatinine 1.70 H Estim Creat Clear Calc 39.3 Estimated GFR 40 POC Glucose Random Glucose 232 H Lactic Acid 4.0 H* Lactic Acid F/U @ 2Hr 2.5 H* Lactic Acid F/U @ 4Hr Calcium 9.9 D Phosphorus Magnesium Total Bilirubin 0.9 AST 25 ALT 14 Alkaline Phosphatase 82 B-Natriuretic Peptide 86 Total Protein 8.8 H Albumin 4.1 Beta-Hydroxybutyrate 1.42 H Urine Color Urine Appearance Urine pH Ur Specific [place] Urine Protein Urine Glucose (UA) Urine Ketones Urine Blood Urine Nitrite Ur Leukocyte Esterase Urine Opiates Screen Urine Fentanyl Screen Ur Barbiturates Screen Ur Phencyclidine Scrn Ur Amphetamines Screen U Benzodiazepines Scrn Urine Cocaine Screen U Marijuana (THC) Screen COVID-19 (ISABELLA) COVID-19 Clin Com 09/25/23 09/25/23 09/25/23 21:31 22:32 22:56 WBC RBC Hgb Hct MCV MCH MCHC RDW Plt Count MPV Immature Gran % (Auto) Neut % (Auto) Lymph % (Auto) [place] % (Auto) Eos % (Auto) Baso % (Auto) Lymph # (Auto) [place] # (Auto) Eos # (Auto) Baso # (Auto) Abs Immat Gran (auto) Absolute Neuts (auto) Absolute Nucleated RBC Nucleated RBC % (auto) Smear Tech's Comments PT INR O2 Saturation 93.0 ABG pH at Pt Temp 7.36 ABG pCO2 at Pt Temp 102 H* ABG pO2 at Pt Temp 76 L ABG HCO3 58 H ABG Base Excess (Actual) 25.6 VBG pH VBG pCO2 VBG pO2 VBG HCO3 VBG O2 Saturation VBG Base Excess Sodium 141 Potassium 2.8 L Chloride 77 L Carbon Dioxide 44 H* Anion Gap 23 H BUN 23 H Creatinine 1.81 H Estim Creat Clear Calc 36.9 Estimated GFR 37 POC Glucose Random Glucose 316 H Lactic Acid Lactic Acid F/U @ 2Hr Lactic Acid F/U @ 4Hr 5.2 H* Calcium 9.4 Phosphorus Magnesium Total Bilirubin AST ALT Alkaline Phosphatase B-Natriuretic Peptide Total Protein Albumin Beta-Hydroxybutyrate Urine Color Urine Appearance Urine pH Ur Specific [place] Urine Protein Urine Glucose (UA) Urine Ketones Urine Blood Urine Nitrite Ur Leukocyte Esterase Urine Opiates Screen Urine Fentanyl Screen Ur Barbiturates Screen Ur Phencyclidine Scrn Ur Amphetamines Screen U Benzodiazepines Scrn Urine Cocaine Screen U Marijuana (THC) Screen COVID-19 (ISABELLA) Negative COVID-19 Clin Com See Note 09/25/23 09/26/23 09/26/23 23:30 00:23 00:43 WBC RBC Hgb Hct MCV MCH MCHC RDW Plt Count MPV Immature Gran % (Auto) Neut % (Auto) Lymph % (Auto) [place] % (Auto) Eos % (Auto) Baso % (Auto) Lymph # (Auto) [place] # (Auto) Eos # (Auto) Baso # (Auto) Abs Immat Gran (auto) Absolute Neuts (auto) Absolute Nucleated RBC Nucleated RBC % (auto) Smear Tech's Comments PT INR O2 Saturation ABG pH at Pt Temp ABG pCO2 at Pt Temp ABG pO2 at Pt Temp ABG HCO3 ABG Base Excess (Actual) VBG pH VBG pCO2 VBG pO2 VBG HCO3 VBG O2 Saturation VBG Base Excess Sodium Potassium Chloride Carbon Dioxide Anion Gap BUN Creatinine Estim Creat Clear Calc Estimated GFR POC Glucose 297 H 272 H Random Glucose Lactic Acid Lactic Acid F/U @ 2Hr Lactic Acid F/U @ 4Hr Calcium Phosphorus Magnesium Total Bilirubin AST ALT Alkaline Phosphatase B-Natriuretic Peptide Total Protein Albumin Beta-Hydroxybutyrate Urine Color Yellow Urine Appearance Clear Urine pH 5.5 Ur Specific [place] 1.015 Urine Protein Trace Urine Glucose (UA) Negative Urine Ketones Negative Urine Blood Negative Urine Nitrite Negative Ur Leukocyte Esterase Negative Urine Opiates Screen Not Detected Urine Fentanyl Screen Not Detected Ur Barbiturates Screen Not Detected Ur Phencyclidine Scrn Not Detected Ur Amphetamines Screen Not Detected U Benzodiazepines Scrn Not Detected Urine Cocaine Screen Not Detected U Marijuana (THC) Screen Not Detected COVID-19 (ISABELLA) COVID-19 Clin Com 09/26/23 09/26/23 09/26/23 01:56 01:57 03:25 WBC RBC Hgb Hct MCV MCH MCHC RDW Plt Count MPV Immature Gran % (Auto) Neut % (Auto) Lymph % (Auto) [place] % (Auto) Eos % (Auto) Baso % (Auto) Lymph # (Auto) [place] # (Auto) Eos # (Auto) Baso # (Auto) Abs Immat Gran (auto) Absolute Neuts (auto) Absolute Nucleated RBC Nucleated RBC % (auto) Smear Tech's Comments PT INR O2 Saturation ABG pH at Pt Temp ABG pCO2 at Pt Temp ABG pO2 at Pt Temp ABG HCO3 ABG Base Excess (Actual) VBG pH 7.38 VBG pCO2 95 VBG pO2 49 VBG HCO3 57 H VBG O2 Saturation 77.0 VBG Base Excess 24.8 Sodium 141 Potassium 2.9 L Chloride 78 L Carbon Dioxide 48 H* Anion Gap 18 BUN 24 H Creatinine 1.82 H Estim Creat Clear Calc 36.7 Estimated GFR 37 POC Glucose 260 H Random Glucose 308 H Lactic Acid 4.8 H* Lactic Acid F/U @ 2Hr Lactic Acid F/U @ 4Hr Calcium 9.1 Phosphorus 3.3 Magnesium 1.3 L* Total Bilirubin AST ALT Alkaline Phosphatase B-Natriuretic Peptide Total Protein Albumin Beta-Hydroxybutyrate Urine Color Urine Appearance Urine pH Ur Specific [place] Urine Protein Urine Glucose (UA) Urine Ketones Urine Blood Urine Nitrite Ur Leukocyte Esterase Urine Opiates Screen Urine Fentanyl Screen Ur Barbiturates Screen Ur Phencyclidine Scrn Ur Amphetamines Screen U Benzodiazepines Scrn Urine Cocaine Screen U Marijuana (THC) Screen COVID-19 (ISABELLA) COVID-19 Clin Com 09/26/23 09/26/23 09/26/23 04:22 04:53 04:54 WBC 19.9 H RBC 4.67 Hgb 12.5 L Hct 39.9 L MCV 85.4 MCH 26.8 L MCHC 31.3 RDW 12.8 Plt Count 155 L MPV 11.4 Immature Gran % (Auto) 0.4 Neut % (Auto) 92.4 H Lymph % (Auto) 2.0 L [place] % (Auto) 5.1 Eos % (Auto) 0.0 Baso % (Auto) 0.1 Lymph # (Auto) 0.4 L [place] # (Auto) 1.0 Eos # (Auto) 0.0 Baso # (Auto) 0.0 Abs Immat Gran (auto) 0.07 H Absolute Neuts (auto) 18.4 H Absolute Nucleated RBC 0.000 Nucleated RBC % (auto) 0.0 Smear Tech's Comments VERIFIED PT INR O2 Saturation ABG pH at Pt Temp ABG pCO2 at Pt Temp ABG pO2 at Pt Temp ABG HCO3 ABG Base Excess (Actual) VBG pH VBG pCO2 VBG pO2 VBG HCO3 VBG O2 Saturation VBG Base Excess Sodium 142 Potassium 3.2 L Chloride 80 L Carbon Dioxide 45 H* Anion Gap 20 BUN 24 H Creatinine 1.75 H Estim Creat Clear Calc 38.2 Estimated GFR 38 POC Glucose 236 H Random Glucose 249 H Lactic Acid Lactic Acid F/U @ 2Hr 4.4 H* Lactic Acid F/U @ 4Hr Calcium 9.1 Phosphorus 2.1 L Magnesium 1.6 Total Bilirubin AST ALT Alkaline Phosphatase B-Natriuretic Peptide Total Protein Albumin 3.4 L Beta-Hydroxybutyrate Urine Color Urine Appearance Urine pH Ur Specific [place] Urine Protein Urine Glucose (UA) Urine Ketones Urine Blood Urine Nitrite Ur Leukocyte Esterase Urine Opiates Screen Urine Fentanyl Screen Ur Barbiturates Screen Ur Phencyclidine Scrn Ur Amphetamines Screen U Benzodiazepines Scrn Urine Cocaine Screen U Marijuana (THC) Screen COVID-19 (ISABELLA) COVID-19 Clin Com 09/26/23 09/26/23 09/26/23 05:00 05:20 06:08 WBC RBC Hgb Hct MCV MCH MCHC RDW Plt Count MPV Immature Gran % (Auto) Neut % (Auto) Lymph % (Auto) [place] % (Auto) Eos % (Auto) Baso % (Auto) Lymph # (Auto) [place] # (Auto) Eos # (Auto) Baso # (Auto) Abs Immat Gran (auto) Absolute Neuts (auto) Absolute Nucleated RBC Nucleated RBC % (auto) Smear Tech's Comments PT INR O2 Saturation ABG pH at Pt Temp ABG pCO2 at Pt Temp ABG pO2 at Pt Temp ABG HCO3 ABG Base Excess (Actual) VBG pH 7.42 VBG pCO2 85 VBG pO2 91 VBG HCO3 56 H VBG O2 Saturation 95.0 VBG Base Excess 25.7 Sodium Potassium Chloride Carbon Dioxide Anion Gap BUN Creatinine Estim Creat Clear Calc Estimated GFR POC Glucose 211 H 192 H Random Glucose Lactic Acid Lactic Acid F/U @ 2Hr Lactic Acid F/U @ 4Hr Calcium Phosphorus Magnesium Total Bilirubin AST ALT Alkaline Phosphatase B-Natriuretic Peptide Total Protein Albumin Beta-Hydroxybutyrate Urine Color Urine Appearance Urine pH Ur Specific [place] Urine Protein Urine Glucose (UA) Urine Ketones Urine Blood Urine Nitrite Ur Leukocyte Esterase Urine Opiates Screen Urine Fentanyl Screen Ur Barbiturates Screen Ur Phencyclidine Scrn Ur Amphetamines Screen U Benzodiazepines Scrn Urine Cocaine Screen U Marijuana (THC) Screen COVID-19 (ISABELLA) COVID-19 Clin Com 09/26/23 09/26/23 09/26/23 07:11 07:50 08:10 WBC RBC Hgb Hct MCV MCH MCHC RDW Plt Count MPV Immature Gran % (Auto) Neut % (Auto) Lymph % (Auto) [place] % (Auto) Eos % (Auto) Baso % (Auto) Lymph # (Auto) [place] # (Auto) Eos # (Auto) Baso # (Auto) Abs Immat Gran (auto) Absolute Neuts (auto) Absolute Nucleated RBC Nucleated RBC % (auto) Smear Tech's Comments PT INR O2 Saturation ABG pH at Pt Temp ABG pCO2 at Pt Temp ABG pO2 at Pt Temp ABG HCO3 ABG Base Excess (Actual) VBG pH VBG pCO2 VBG pO2 VBG HCO3 VBG O2 Saturation VBG Base Excess Sodium Potassium Chloride Carbon Dioxide Anion Gap BUN Creatinine Estim Creat Clear Calc Estimated GFR POC Glucose 197 H 173 H Random Glucose Lactic Acid Lactic Acid F/U @ 2Hr Lactic Acid F/U @ 4Hr 2.9 H* Calcium Phosphorus Magnesium Total Bilirubin AST ALT Alkaline Phosphatase B-Natriuretic Peptide Total Protein Albumin Beta-Hydroxybutyrate Urine Color Urine Appearance Urine pH Ur Specific [place] Urine Protein Urine Glucose (UA) Urine Ketones Urine Blood Urine Nitrite Ur Leukocyte Esterase Urine Opiates Screen Urine Fentanyl Screen Ur Barbiturates Screen Ur Phencyclidine Scrn Ur Amphetamines Screen U Benzodiazepines Scrn Urine Cocaine Screen U Marijuana (THC) Screen COVID-19 (ISABELLA) COVID-19 [employer] 09/26/23 09/26/23 09/26/23 09:00 10:16 11:05 WBC RBC Hgb Hct MCV MCH MCHC RDW Plt Count MPV Immature Gran % (Auto) Neut % (Auto) Lymph % (Auto) [place] % (Auto) Eos % (Auto) Baso % (Auto) Lymph # (Auto) [place] # (Auto) Eos # (Auto) Baso # (Auto) Abs Immat Gran (auto) Absolute Neuts (auto) Absolute Nucleated RBC Nucleated RBC % (auto) Smear Tech's Comments PT INR O2 Saturation ABG pH at Pt Temp ABG pCO2 at Pt Temp ABG pO2 at Pt Temp ABG HCO3 ABG Base Excess (Actual) VBG pH VBG pCO2 VBG pO2 VBG HCO3 VBG O2 Saturation VBG Base Excess Sodium Potassium Chloride Carbon Dioxide Anion Gap BUN Creatinine Estim Creat Clear Calc Estimated GFR POC Glucose 201 H 171 H 152 H Random Glucose Lactic Acid Lactic Acid F/U @ 2Hr Lactic Acid F/U @ 4Hr Calcium Phosphorus Magnesium Total Bilirubin AST ALT Alkaline Phosphatase B-Natriuretic Peptide Total Protein Albumin Beta-Hydroxybutyrate Urine Color Urine Appearance Urine pH Ur Specific [place] Urine Protein Urine Glucose (UA) Urine Ketones Urine Blood Urine Nitrite Ur Leukocyte Esterase Urine Opiates Screen Urine Fentanyl Screen Ur Barbiturates Screen Ur Phencyclidine Scrn Ur Amphetamines Screen U Benzodiazepines Scrn Urine Cocaine Screen U Marijuana (THC) Screen COVID-19 (ISABELLA) COVID-19 [employer] 09/26/23 09/26/23 12:04 12:05 WBC RBC Hgb Hct MCV MCH MCHC RDW Plt Count MPV Immature Gran % (Auto) Neut % (Auto) Lymph % (Auto) [place] % (Auto) Eos % (Auto) Baso % (Auto) Lymph # (Auto) [place] # (Auto) Eos # (Auto) Baso # (Auto) Abs Immat Gran (auto) Absolute Neuts (auto) Absolute Nucleated RBC Nucleated RBC % (auto) Smear Tech's Comments PT INR O2 Saturation ABG pH at Pt Temp ABG pCO2 at Pt Temp ABG pO2 at Pt Temp ABG HCO3 ABG Base Excess (Actual) VBG pH 7.45 H VBG pCO2 86 VBG pO2 112 VBG HCO3 61 H VBG O2 Saturation 99.0 VBG Base Excess 30.9 Sodium Potassium Chloride Carbon Dioxide Anion Gap BUN Creatinine Estim Creat Clear Calc Estimated GFR POC Glucose 118 H Random Glucose Lactic Acid Lactic Acid F/U @ 2Hr Lactic Acid F/U @ 4Hr Calcium Phosphorus Magnesium Total Bilirubin AST ALT Alkaline Phosphatase B-Natriuretic Peptide Total Protein Albumin Beta-Hydroxybutyrate Urine Color Urine Appearance Urine pH Ur Specific [place] Urine Protein Urine Glucose (UA) Urine Ketones Urine Blood Urine Nitrite Ur Leukocyte Esterase Urine Opiates Screen Urine Fentanyl Screen Ur Barbiturates Screen Ur Phencyclidine Scrn Ur Amphetamines Screen U Benzodiazepines Scrn Urine Cocaine Screen U Marijuana (THC) Screen COVID-19 (ISABELLA) COVID-19 Clin Com Progress Note: A&P Assessment and plan (1) Pulmonary aspiration: Status: Acute (2) NATALYA (acute kidney injury): Status: Acute (3) Congestive heart failure: Status: Acute (4) Acute respiratory failure with hypoxia and hypercapnia: Status: Acute (5) COPD exacerbation: Status: Acute (6) Type 2 diabetes mellitus: Status: Acute (7) Paroxysmal atrial fibrillation: Status: Acute Plan Assessment: 73-year-old gentleman with underlying COPD on 2 L, recent development of confusion/dementia, underlying substance abuse, diabetes mellitus, heart failure, AFib admitted with slowly worsening dyspnea secondary to acute on chronic hypoxic and hypercapnic respiratory failure briefly requiring BiPAP support, also with an aspiration component. Plan: Neuro: No acute issues. Cardiac: Acute on chronic diastolic congestive heart failure improving with diuresis with acetazolamide. Underlying AFib continue rate control. Pulmonary: Acute on chronic hypoxic hypercapnic respiratory failure initially requiring BiPAP: Night titrated off. Continue supplemental oxygen to maintain O2 saturation of 88-90%. Exacerbation of underlying COPD. Continue on systemic glucocorticoids and nebulized bronchodilators. Aspiration component, now on Levaquin. Renal: Acute renal failure likely secondary to exacerbation of underlying diastolic congestive heart failure. Non oliguric. Continue to monitor renal indices and urine output. Improving. Endo: No acute issues. GI: No acute issues. ID: Aspiration pneumonitis versus pneumonia. Now on empiric Levaquin. Heme/Onc: No acute issues. Psych: No acute issues. Miscellaneous: No acute issues. Prophylaxis: Eliquis Diet: Pending swallow evaluation Critical care time spent: 45 minutes Quality Stroke Does the patient have a stroke diagnosis?: No VTE Prior VTE?: No VTE Risk Level:: Medical - moderate - high VTE Device Contraindication: N/A - Device Ordered VTE Drug Contraindication: N/A - Med Ordered
[2023-09-26 13:30] LABS: Glucose, Whole Blood 70 mg/dL (60-115)
--- NOTE | 2023-09-26 14:01 | MHC.CM.PN ---
Met w/pt who is on high O2 support: call placed to pt's dtr to discuss d/c planning: Pt resides alone but has 4 family members / [employer]'s who provide 24/7 care for him. Pt has an O2 concentrator from [facility] and family assists w/transportation. PCP Is Sivakumar Drake. HCP at home: copy requested> IMM in chart. Pt would like to return to home w/family and would consider VNA if necessary. CM to follow for finalization of d/c planning.
--- NOTE | 2023-09-26 17:04 | PC.NURSE ---
pt arrived from ICU. currently asleep arousbale to name follows directions but still remains lethargic and falls back to sleep quickly.
--- NOTE | 2023-09-26 17:14 | MHC.SLORD ---
Speech Language Pathology Order Status: Attempted X2 to do clinical swallow this pm, with patient deeply asleep at both visits, not appropriate for evaluation. Sitter reports patient did not sleep at all over night. PERSONNEL INTERVIEWER will re-attempt 09/27.
[2023-09-26 18:03] LABS: Glucose, Whole Blood 167 mg/dL (60-115)
[2023-09-27] VITALS (15 sets, daily range): BP systolic 131–166; BP diastolic 62–98; PULSE 73–111; RESP 16–20; TEMP 36.2–36.7; O2SAT 88–93
[2023-09-27 00:22] LABS: Glucose, Whole Blood 160 mg/dL (60-115)
[2023-09-27] MEDS: Albuterol/Iprat 2.5/0.5MG 3 ML AMPUL.NEB INHALE ×5 (00:42→19:25)
[2023-09-27] MEDS: OLANZapine 10 MG VIAL 5 MG IM (03:39)
[2023-09-27 04:44] LABS: ABG Base Excess 33.7 mmol/L; ABG HCO3 64 mmol/L (22-26); ABG pCO2 84 mmHg (32-45); ABG pH 7.48 (7.35-7.45); ABG pO2 51 mmHg (83-108)
[2023-09-27 05:14] LABS: ABG Refer to POC result
[2023-09-27 06:03] LABS: Glucose, Whole Blood 140 mg/dL (60-115)
--- NOTE | 2023-09-27 06:29 | PC.NURSE ---
0000; Vital signs with oxygen in the 80s on 4 L oxymask, increased to 6 L. Respiratory at bedside, gave patient breathing treatment. Patient continued to have oxygen readings between 83-89% on 6 L oxymask, also difficult to get a good oxygen reading with patient's cold hands/feet. Charge nurse and nursing clay preparation supervisor aware. Hospitalist made aware. Dr. Polanco at patient's bedside, order for ABGs. Results of ABGs tiger messaged to hospitalist, respiratory in to see patient, increased oxygen to 10 L via oxymask. Patient's oxygen now running between 87-90. Dr. Polanco updated.
[2023-09-27] MEDS: acetaZOLAMIDE sodium 500 MG VIAL 250 MG IVPUSH ×2 (07:36→21:47)
[2023-09-27] MEDS: methylPREDNISolone Sod Succ 40 MG/ML VIAL IVPUSH ×3 (08:11→23:12)
[2023-09-27 09:14] LABS: Hematocrit 41.9 % (42.0-52.0); Hemoglobin 12.5 g/dl (14.0-18.0); Mean Corpuscular HGB Conc 29.8 g/dl (31.0-36.0); Mean Corpuscular Hemoglobin 26.9 pg (27.0-33.0); Mean Corpuscular Volume 90.3 fL (80.0-98.0); Mean Platelet Volume 12.8 fL (9.4-12.4); Platelet Count 150 X10*3/uL (160-400); Red Blood Count 4.64 X10*6/uL (4.60-5.80); Red Cell Distribution Width 13.3 % (11.0-16.0); White Blood Count 20.2 X10*3/uL (4.8-10.8)
[2023-09-27 09:38] LABS: B Type Natriuretic Peptide 53 pg/mL (<100)
[2023-09-27 09:56] LABS: Anion Gap 16 (12-20); Blood Urea Nitrogen 30 mg/dL (9-16); Calcium 9.7 mg/dL (8.4-10.2); Carbon Dioxide 49 mmol/L (22-29); Chloride 83 mmol/L (96-108); Creatinine Clr Calc Pharmacy 43.7; Estimated Glomerular Filt Rate 45; Glucose Random 142 mg/dL (60-115); Magnesium 1.7 mg/dL (1.6-2.6); Potassium 3.2 mmol/L (3.3-5.1); Sodium 145 mmol/L (135-145)
--- NOTE | 2023-09-27 10:14 | HO.PM.IMPN ---
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 appears comfortable but confused - able to state his name and denies pain but unable to get say much else. unable to obtain full ROS Constitutional Constitutional: Reports chills and Reports fever(s) Neurologic Neurologic: Reports confusion Psychiatric Psychiatric: Reports confusion Physical Exam Vital Signs: Vital Signs: Last Vital Signs Temp 97.4 F 09/27/23 07:17 Pulse 89 09/27/23 07:36 Resp 16 09/27/23 07:38 BP 141/62 H 09/27/23 07:17 Pulse Ox 89 L 09/27/23 07:17 O2 Del Method Oxymask 09/27/23 07:17 O2 Flow Rate 10 09/27/23 07:17 FiO2 60 09/26/23 10:00 Oxygen Flow Rate 15 09/25/23 16:58 BMI result Body Mass Index 23.8 Const: General: comfortable, no acute distress, alert, awake and confusion Nutritional Appearance: average body habitus Orientation/consciousness: oriented to person and confusion Resp: Other: expiratory wheezes Effort & Inspection: normal respiratory effort, no respiratory distress and no use of accessory muscles Cardio: Rate: regular rate GI: Inspection: No distended Palpation (GI): Soft to palpation and nontender Neuro: Other: grossly nonfocal General: oriented to person, moves all extremities and confusion Extrem: General: Yes no pedal edema Objective Data Active Medications Acetazolamide (Acetazolamide Sodium 500 Mg Vial) 250 mg IVPUSH BID [facility] Last Admin: 09/27/23 07:36 Dose: 250 mg Documented By: NANCY Comments: Albuterol Sulfate (Albuterol Sulfate (0.083%) 2.5 Mg/3 Ml Vial.Neb) 2.5 mg INHALE Q4H PRN PRN Reason: Shortness of Breath/Wheezing Albuterol/Ipratropium (Albuterol/Iprat 2.5/0.5mg 3 Ml Ampul.Neb) 3 ml INHALE RQ4H WHILE AWAKE [facility] Last Admin: 09/27/23 07:28 Dose: 3 ml Documented By: AWA Apixaban (Apixaban 5 Mg Tablet) 5 mg PO BID [facility] Last Admin: 09/27/23 07:36 Dose: Not Given Documented By: NANCY Non-Admin Reason: NPO Dextrose (Dextrose 50 % 25 Gm/50 Ml Syringe) 25 gm IVPUSH Q30M PRN PRN Reason: BG < 70 Levofloxacin (Levaquin) 750 mg in 150 mls @ 100 mls/hr IV Q48H [facility] Last Infusion: 09/26/23 10:49 Dose: Infused Documented By: NANCY Potassium Chloride (Potassium Chloride/H20) 10 meq in 100 mls @ 100 mls/hr IV Q1H [facility] Stop: 09/27/23 11:59 Insulin Human Lispro (Insulin Lispro 100 Unit/Ml 3 Ml Vial) 0 unit SUBCUT Q6H [facility]; Protocol Last Admin: 09/27/23 06:07 Dose: Not Given Documented By: CLEMENTE Non-Admin Reason: NPO Methylprednisolone Sodium Succinate (Methylprednisolone Sod Succ 40 Mg/Ml Vial) 40 mg IVPUSH Q8H [facility] Last Admin: 09/27/23 08:11 Dose: 40 mg Documented By: NANCY Labs 09/27/23 08:21 09/27/23 08:21 Labs: Laboratory Results - last 24 hr 09/26/23 09/26/23 09/26/23 10:16 11:05 12:04 MCV MCH MCHC RDW Plt Count MPV Absolute Nucleated RBC Nucleated RBC % (auto) O2 Saturation ABG pH at Pt Temp ABG pCO2 at Pt Temp ABG pO2 at Pt Temp ABG HCO3 ABG Base Excess (Actual) VBG pH 7.45 H VBG pCO2 86 VBG pO2 112 VBG HCO3 61 H VBG O2 Saturation 99.0 VBG Base Excess 30.9 Anion Gap Estim Creat Clear Calc Estimated GFR POC Glucose 171 H 152 H Random Glucose Calcium Magnesium B-Natriuretic Peptide 09/26/23 09/26/23 09/26/23 12:05 13:27 17:58 MCV MCH MCHC RDW Plt Count MPV Absolute Nucleated RBC Nucleated RBC % (auto) O2 Saturation ABG pH at Pt Temp ABG pCO2 at Pt Temp ABG pO2 at Pt Temp ABG HCO3 ABG Base Excess (Actual) VBG pH VBG pCO2 VBG pO2 VBG HCO3 VBG O2 Saturation VBG Base Excess Anion Gap Estim Creat Clear Calc Estimated GFR POC Glucose 118 H 70 167 H Random Glucose Calcium Magnesium B-Natriuretic Peptide 09/27/23 09/27/23 09/27/23 00:16 04:38 05:57 MCV MCH MCHC RDW Plt Count MPV Absolute Nucleated RBC Nucleated RBC % (auto) O2 Saturation 78.0 ABG pH at Pt Temp 7.48 H ABG pCO2 at Pt Temp 84 H* ABG pO2 at Pt Temp 51 L ABG HCO3 64 H ABG Base Excess (Actual) 33.7 VBG pH VBG pCO2 VBG pO2 VBG HCO3 VBG O2 Saturation VBG Base Excess Anion Gap Estim Creat Clear Calc Estimated GFR POC Glucose 160 H 140 H Random Glucose Calcium Magnesium B-Natriuretic Peptide 09/27/23 09/27/23 08:21 08:21 MCV 90.3 MCH 26.9 L MCHC 29.8 L RDW 13.3 Plt Count 150 L MPV 12.8 H Absolute Nucleated RBC 0.000 Nucleated RBC % (auto) 0.0 O2 Saturation ABG pH at Pt Temp ABG pCO2 at Pt Temp ABG pO2 at Pt Temp ABG HCO3 ABG Base Excess (Actual) VBG pH VBG pCO2 VBG pO2 VBG HCO3 VBG O2 Saturation VBG Base Excess Anion Gap 16 Estim Creat Clear Calc 43.7 Estimated GFR 45 POC Glucose Random Glucose 142 H Calcium 9.7 D Magnesium 1.7 Cancelled B-Natriuretic Peptide 53 Microbiology Microbiology Results: Microbiology 09/25/23 18:12 Blood Culture - Preliminary Blood - Venous No growth after 24 hours. 09/25/23 17:21 Blood Culture - Preliminary Blood - Venous No growth after 24 hours. Assessment and Plan (1) Acute respiratory failure with hypoxia and hypercapnia: Status: Acute (2) Pulmonary aspiration: Status: Acute Plan This is a 73 year old male with history of chronic respiratory failure on 2L of supplemental oxygen, COPD, atrial fibrillation on Eliquis, DM, HFpEF, CAD, h/o cocaine use who presented to the ED with shortness of breath found to have hypoxia and pneumonia with concern for aspiration and requiring bipap and ICU level of care, admitted to the ICU on 09/25 and downgraded to the medical floor the following day 09/26. Also noted to have confusion ongoing for unclear period of time, at least several weeks. Acute on chronic respiratory failure with hypoxia and hypercarbia r/t COPD and possible aspiration on baseline 2L at home, o2 requirements increased overnight and now on high flow CTA 09/25 negative for PE, showing diffuse emphysema, b/l lower lobe bronchial opacification, LLL consolidation atelectasis vs infiltrate will resume IV solu-medrol, continue scheduled breathing treatments started on levaquin in ICU, continue for now BNP 58 repeat CXR negative wean oxygen as tolerated bicarb remains high, continue diamox if no improvement in oxygen requirements, will consult pulmonary dysphagia failed bedside swallow seen by speech, rec NDD1 diet with honey thiq leukocytosis r/t steroids acute lactic acidosis likely r/t hypoxia not sepsis encephalopathy vs dementia unclear pt baseline and timeline of confusion brain CT negative for acute changes, showing microangiopathy and generalized volume loss as well as chronic appearing lacunar infarcts hypokalemia replace and follow atrial fibrillation continue Eliquis resume home dose of metoprolol CKD3 no recent baseline, creatinine previously around 1.7 creatinine trending down to 1.5 today follow closely HFpEF no acute exacerbation bnp 58 lasix has been on hold DM hold glipizide, trulicity POCs, SSI, ADA diet HTN hold norvasc continue metoprolol follow BP closely CAD resume BB, statin dvt ppx - eliquis attending - Dr. toney attempted to call chelsea Baeza listed as primary contact. no answer patient requires ongoing inpatient stay for respiratory failure requiring high flow o2 Quality Stroke Does the patient have a stroke diagnosis?: No VTE Prior VTE?: No VTE Risk Level:: Medical - moderate - high VTE Device Contraindication: N/A - Device Ordered VTE Drug Contraindication: N/A - Med Ordered
[2023-09-27] MEDS: Potassium Chloride/H20 10 MEQ/100 ML PIGGYBACK 100 MEQ IV ×2 (10:19→11:21)
[2023-09-27 10:20] LABS: ABG Refer to POC result
[2023-09-27 10:20] LABS: VBG Base Excess 32.6 mmol/L; VBG HCO3 63 mmol/L (22-26); VBG pCO2 84 mmHg; VBG pH 7.48 (7.32-7.43); VBG pO2 64 mmHg
[2023-09-27 11:47] LABS: Glucose, Whole Blood 199 mg/dL (60-115)
[2023-09-27] MEDS: Insulin Lispro 100 UNIT/ML 3 ML VIAL SUBCUT ×3 (11:57→21:46)
[2023-09-27] MEDS: Apixaban 5 MG TABLET PO ×2 (11:58→21:46)
--- NOTE | 2023-09-27 12:13 | MHC.SL.SWA ---
Speech Pathologist Impression: Risk of aspiration, oropharyngeal dysphagia Risk of Aspiration Due to: History of Pneumonia Reduced Cognition Weak Voice Dysphasia Diet Status: start on NDD1/HTL Liquid Consistency and Strategies for Safe Swallow: Liquid Intake Recommendation: Honey Thick Liquid Intake Strategies: Small Sips No Straws Solid Food Consistency: Dietary Recommendations: Pureed (NDD1) Additional Modifications to Solid Foods: Recommend UPGRADE from NPO, START on PUREED (NDD1) diet and HONEY THICK liquids via teaspoon or controlled cup (NO STRAWS), pills CRUSHED in PUREE. Recommend 1:1 supervision, provide pt w/ assistance as needed with tray set up and throughout meal, provide cues for strategies (upright positioning, small bites/sips, slow pacing, ensure oral cavity is clear before taking more bites/sips, dry swallow between bites/sips), monitor pt closely. Aspiration precautions apply. Oral Medication Intake: Crushed with Puree Please contact the pharmacy regarding appropriate crushable or liquid drug formulations that are available whenever modified delivery is recommended. Compensatory Strategies and Precautions to be Taken for Safe Swallow: Sitting Upright (90 deg) Double Swallow No Straw Liquids from Cup Liquids from Spoon Small Bites and Sips Rate of Ingestion Change Oral Check Supervision While Eating and Drinking for Safe Swallow: Total Assistance (1:1) Swallowing Recommended Treatments: Compens. Strategy Educat. Recommendation for Speech: Inpatient Speech Therapy Comment: Frequency/Duration: PRN M-F Javascript Ui Developer Clinican/Clinical Fellow: No Supervisory Statement: I have reviewed and agree with the student/clinical fellow's documentation: N/A Speech Language Pathologist: Ashtyn Neil M.A., CCC-INSTRUCTIONAL TECHNOLOGY DIRECTOR
[2023-09-27 12:26] LABS: Alanine Aminotransferase 13 U/L (0-40); Albumin Level 3.6 g/dL (3.5-5.0); Alkaline Phosphatase 72 U/L (39-117); Aspartate Amino Transferase 28 U/L (5-37); Bilirubin Direct 0.3 mg/dL (0.0-0.5); Bilirubin Total 0.4 mg/dL (0.0-1.0); Total Protein 7.4 g/dL (6.5-8.0)
[2023-09-27 12:44] LABS: Thyroid Stimulating Hormone 0.12 uIU/mL (0.32-4.0)
[2023-09-27 16:22] LABS: Glucose, Whole Blood 299 mg/dL (60-115)
[2023-09-27 18:42] LABS: Free T4 (Free Thyroxine) > 5.00 ng/dL (0.71-1.85)
[2023-09-27 19:59] LABS: Glucose, Whole Blood 353 mg/dL (60-115)
[2023-09-27] MEDS: Metoprolol Tartrate 12.5 MG HALFTAB PO (21:46)
[2023-09-27] MEDS: Atorvastatin Calcium 80 MG TABLET PO (21:46)
[2023-09-28] VITALS (10 sets, daily range): BP systolic 102–151; BP diastolic 59–86; PULSE 73–101; RESP 16–20; TEMP 36.5–37.1; O2SAT 89–93
[2023-09-28 06:41] LABS: Basophils Percent Auto 0.1 % (0-2); Hematocrit 38.5 % (42.0-52.0); Hemoglobin 11.8 g/dl (14.0-18.0); Imm Gran Abs Auto 0.18 X10*3/uL (0.00-0.03); Imm Gran Pct Auto 1.1 % (0.0-0.4); Lymphocytes Absolute Auto 0.2 X10*3/uL (1.2-4.9); Lymphocytes Percent Auto 1.5 % (20-40); MANUAL DIFF FLAG SCAN; Mean Corpuscular HGB Conc 30.6 g/dl (31.0-36.0); Mean Corpuscular Hemoglobin 27.3 pg (27.0-33.0); Mean Corpuscular Volume 88.9 fL (80.0-98.0); Mean Platelet Volume 12.3 fL (9.4-12.4); Monocytes Absolute Auto 0.3 X10*3/uL (0.1-1.2); Monocytes Percent Auto 1.8 % (2-11); Neutrophils Percent Auto 95.5 % (45-73); Platelet Count 151 X10*3/uL (160-400); Red Blood Count 4.33 X10*6/uL (4.60-5.80); Red Cell Distribution Width 13.5 % (11.0-16.0); SCAN SMEAR FLAG 1; White Blood Count 15.7 X10*3/uL (4.8-10.8)
[2023-09-28 07:05] LABS: SLIDE REVIEW VERIFIED
[2023-09-28 07:13] LABS: Glucose, Whole Blood 234 mg/dL (60-115)
[2023-09-28 07:24] LABS: Anion Gap 14 (12-20); Blood Urea Nitrogen 37 mg/dL (9-16); Calcium 9.5 mg/dL (8.4-10.2); Carbon Dioxide 46 mmol/L (22-29); Chloride 86 mmol/L (96-108); Estimated Glomerular Filt Rate 40; Glucose Random 226 mg/dL (60-115); Potassium 3.3 mmol/L (3.3-5.1); Sodium 143 mmol/L (135-145)
[2023-09-28 07:34] LABS: Folate 3.7 ng/mL (> or = 4.0); Vitamin B12 349 pg/mL (200-900)
[2023-09-28] MEDS: Albuterol/Iprat 2.5/0.5MG 3 ML AMPUL.NEB INHALE ×3 (07:59→19:33)
[2023-09-28] MEDS: levoFLOXacin/D5W 750 MG/150 ML PIGGYBACK 100 MG IV (08:20)
[2023-09-28] MEDS: acetaZOLAMIDE sodium 500 MG VIAL 250 MG IVPUSH ×2 (08:22→22:09)
[2023-09-28] MEDS: Insulin Lispro 100 UNIT/ML 3 ML VIAL SUBCUT ×4 (08:22→22:05)
[2023-09-28] MEDS: Apixaban 5 MG TABLET PO ×2 (08:23→22:05)
[2023-09-28] MEDS: methylPREDNISolone Sod Succ 40 MG/ML VIAL IVPUSH ×2 (08:23→16:56)
[2023-09-28] MEDS: Metoprolol Tartrate 12.5 MG HALFTAB PO ×2 (08:24→22:05)
[2023-09-28 10:42] LABS: Free T4 (Free Thyroxine) 1.44 ng/dL (0.71-1.85); Thyroid Stimulating Hormone 0.07 uIU/mL (0.32-4.0)
[2023-09-28 10:50] LABS: Free T4 (Free Thyroxine) 1.19 ng/dL (0.71-1.85)
[2023-09-28 10:57] LABS: Glucose, Whole Blood 344 mg/dL (60-115)
--- NOTE | 2023-09-28 11:33 | HO.PM.IMPN ---
Subjective Subjective Date of Service: 09/28/23 Interval History: seen and examined this morning follow up for encephalopathy, respiratory failure awake and alert this morning, oriented and able to answer questions reports a little shortness of breath, no significant cough, no fever or chills Review of Systems Review of Systems: Yes all other systems are reviewed and are negative Constitutional Constitutional: Denies chills and Denies fever(s) Cardiovascular Cardiovascular: Denies chest pain, Denies palpitations and Denies dyspnea Respiratory Respiratory: Denies cough and Denies dyspnea Gastrointestinal Gastrointestinal: Denies abdominal pain, Denies nausea and Denies vomiting Endocrine Endocrine: Denies palpitations Physical Exam Vital Signs: Vital Signs: Last Vital Signs Temp 98.5 F 09/28/23 10:57 Pulse 99 09/28/23 10:57 Resp 20 09/28/23 10:57 BP 102/60 09/28/23 10:57 Pulse Ox 89 L 09/28/23 10:57 O2 Del Method High Flow Nasal C annula 09/28/23 10:57 O2 Flow Rate 55 09/28/23 10:57 FiO2 66 09/28/23 10:57 Oxygen Flow Rate 15 09/25/23 16:58 BMI result Body Mass Index 23.8 Const: Other: resting in bed comfortably; in no acute distress patient now oriented and able to provide history General: comfortable, no acute distress, alert and awake Nutritional Appearance: average body habitus Orientation/consciousness: patient oriented x3 Resp: Other: diminished Effort & Inspection: normal respiratory effort, able to speak in complete sentences, no respiratory distress and no use of accessory muscles Cardio: Rate: regular rate GI: Inspection: No distended Palpation (GI): Soft to palpation and nontender Neuro: General: patient oriented x3, moves all extremities and CN's II-XI intact bilaterally Extrem: General: Yes no pedal edema Objective Data Active Medications Acetazolamide (Acetazolamide Sodium 500 Mg Vial) 250 mg IVPUSH BID [facility] Last Admin: 09/28/23 08:22 Dose: 250 mg Documented By: KAUR Albuterol Sulfate (Albuterol Sulfate (0.083%) 2.5 Mg/3 Ml Vial.Neb) 2.5 mg INHALE Q4H PRN PRN Reason: Shortness of Breath/Wheezing Albuterol/Ipratropium (Albuterol/Iprat 2.5/0.5mg 3 Ml Ampul.Neb) 3 ml INHALE RQ4H WHILE AWAKE [facility] Last Admin: 09/28/23 07:59 Dose: 3 ml Documented By: AWA Apixaban (Apixaban 5 Mg Tablet) 5 mg PO BID [facility] Last Admin: 09/28/23 08:23 Dose: 5 mg Documented By: KAUR Atorvastatin Calcium (Atorvastatin Calcium 80 Mg Tablet) 80 mg PO BEDTIME [facility] Last Admin: 09/27/23 21:46 Dose: 80 mg Documented By: RAI Dextrose (Dextrose 50 % 25 Gm/50 Ml Syringe) 25 gm IVPUSH Q30M PRN PRN Reason: BG < 70 Levofloxacin (Levaquin) 750 mg in 150 mls @ 100 mls/hr IV Q48H [facility] Last Infusion: 09/28/23 10:35 Dose: Infused Documented By: KAUR Insulin Human Lispro (Insulin Lispro 100 Unit/Ml 3 Ml Vial) 0 unit SUBCUT QIDACHS [facility]; Protocol Last Admin: 09/28/23 08:22 Dose: 4 unit Documented By: KAUR Methylprednisolone Sodium Succinate (Methylprednisolone Sod Succ 40 Mg/Ml Vial) 40 mg IVPUSH Q8H [facility] Last Admin: 09/28/23 08:23 Dose: 40 mg Documented By: KAUR Metoprolol Tartrate (Metoprolol Tartrate 12.5 Mg Halftab) 12.5 mg PO BID [facility]; Protocol Last Admin: 09/28/23 08:24 Dose: 12.5 mg Documented By: KAUR Labs 09/28/23 05:51 09/28/23 05:51 Labs: Laboratory Results - last 24 hr 09/27/23 09/27/23 09/27/23 08:21 11:32 16:09 MCV MCH MCHC RDW Plt Count MPV Immature Gran % (Auto) Neut % (Auto) Lymph % (Auto) [place] % (Auto) Eos % (Auto) Baso % (Auto) Lymph # (Auto) [place] # (Auto) Eos # (Auto) Baso # (Auto) Abs Immat Gran (auto) Absolute Neuts (auto) Absolute Nucleated RBC Nucleated RBC % (auto) Smear Tech's Comments Anion Gap Estim Creat Clear Calc Estimated GFR POC Glucose 199 H 299 H Random Glucose Calcium Total Bilirubin 0.4 Direct Bilirubin 0.3 AST 28 ALT 13 Alkaline Phosphatase 72 Total Protein 7.4 Albumin 3.6 Vitamin B12 Folate TSH 0.12 L Free T4 > 5.00 H 09/27/23 09/28/23 09/28/23 19:48 05:51 07:06 MCV 88.9 MCH 27.3 MCHC 30.6 L RDW 13.5 Plt Count 151 L MPV 12.3 Immature Gran % (Auto) 1.1 H Neut % (Auto) 95.5 H Lymph % (Auto) 1.5 L [place] % (Auto) 1.8 L Eos % (Auto) 0.0 Baso % (Auto) 0.1 Lymph # (Auto) 0.2 L [place] # (Auto) 0.3 Eos # (Auto) 0.0 Baso # (Auto) 0.0 Abs Immat Gran (auto) 0.18 H Absolute Neuts (auto) 15.0 H Absolute Nucleated RBC 0.000 Nucleated RBC % (auto) 0.0 Smear Tech's Comments VERIFIED Anion Gap 14 Estim Creat Clear Calc 40.0 Estimated GFR 40 POC Glucose 353 H* 234 H Random Glucose 226 H Calcium 9.5 Total Bilirubin Direct Bilirubin AST ALT Alkaline Phosphatase Total Protein Albumin Vitamin B12 349 Folate 3.7 L TSH 0.07 L Free T4 1.44 09/28/23 09/28/23 10:05 10:50 MCV MCH MCHC RDW Plt Count MPV Immature Gran % (Auto) Neut % (Auto) Lymph % (Auto) [place] % (Auto) Eos % (Auto) Baso % (Auto) Lymph # (Auto) [place] # (Auto) Eos # (Auto) Baso # (Auto) Abs Immat Gran (auto) Absolute Neuts (auto) Absolute Nucleated RBC Nucleated RBC % (auto) Smear Tech's Comments Anion Gap Estim Creat Clear Calc Estimated GFR POC Glucose 344 H Random Glucose Calcium Total Bilirubin Direct Bilirubin AST ALT Alkaline Phosphatase Total Protein Albumin Vitamin B12 Folate TSH Free T4 1.19 Microbiology Microbiology Results: Microbiology 09/25/23 18:12 Blood Culture - Preliminary Blood - Venous No growth after 48 hours. 09/25/23 17:21 Blood Culture - Preliminary Blood - Venous No growth after 48 hours. Assessment and Plan (1) Acute respiratory failure with hypoxia and hypercapnia: Status: Acute Plan This is a 73 year old male with history of chronic respiratory failure on 2L of supplemental oxygen, COPD, atrial fibrillation on Eliquis, DM, HFpEF, CAD, h/o cocaine use who presented to the ED with shortness of breath found to have hypoxia and pneumonia with concern for aspiration and requiring bipap and ICU level of care, admitted to the ICU on 09/25 and downgraded to the medical floor the following day 09/26. Also noted to have confusion ongoing for unclear period of time, at least several weeks. Acute on chronic respiratory failure with hypoxia and hypercarbia r/t COPD exacerbation, PNA and possible aspiration on baseline 2L at home, o2 requirements increased and now on high flow CTA 09/25 negative for PE, showing diffuse emphysema, b/l lower lobe bronchial opacification, LLL consolidation atelectasis vs infiltrate continue IV solu-medrol, continue scheduled breathing treatments started on levaquin in ICU, continue for now BNP 58 - no evidence of fluid overload repeat CXR 09/27 negative bicarb remains high, continue diamox if no improvement in oxygen requirements, will consult pulmonary if unable to wean high flow, will consider repeat CTA although patient is AC with Eliquis for afib hyperthyroidism thyroid tests from 09/27 c/w hyperthyroidism repeat test today, 09/28 showing improvement. improvement in mental status. HR controlled. no evidence of thyroid storm at this time discussed with endocrinology - plan to repeat thyroid function in am Free t3 is send out and pending at this time pt denies previous history of thyroid disease, previous TSH from 2021 was 0.74 dysphagia seen by speech, rec NDD1 diet with honey thick liquids continue aspiration precautions tolerating diet leukocytosis r/t steroids, trending down acute lactic acidosis likely r/t hypoxia not sepsis encephalopathy vs dementia brain CT negative for acute changes, showing microangiopathy and generalized volume loss as well as chronic appearing lacunar infarcts improved. today patient awake and oriented and able to answer questions appropriately hypokalemia replace and follow atrial fibrillation continue Eliquis resume home dose of metoprolol CKD3 no recent baseline, creatinine previously around 1.7 creatinine trending down to 1.5 today follow closely HFpEF no acute exacerbation bnp 58 lasix has been on hold T2DM with hyperglycemia hyperglycemia r/t steroids hold glipizide, trulicity POCs, SSI, ADA diet check Hba1c HTN hold norvasc continue metoprolol follow BP closely CAD resume BB, statin dvt ppx - eliquis attending - Dr. Neves called Felisha, daughter listed as primary contact and updated. patient requires ongoing inpatient stay for respiratory failure requiring high flow o2 Quality Stroke Does the patient have a stroke diagnosis?: No VTE Prior VTE?: No VTE Risk Level:: Medical - moderate - high VTE Device Contraindication: N/A - Device Ordered VTE Drug Contraindication: N/A - Med Ordered
[2023-09-28 12:26] LABS: Venous Blood Gas Refer to POC result
[2023-09-28 12:26] LABS: VBG HCO3 58 mmol/L (22-26); VBG pCO2 82 mmHg; VBG pH 7.46 (7.32-7.43); VBG pO2 40 mmHg
--- NOTE | 2023-09-28 13:02 | P.PNPL_ITS ---
Subjective Subjective Date of Service: 09/28/23 Interval history: Still with significant FiO2 requirements, now on high-flow nasal cannula. Encephalopathy improved significantly. Objective Data Labs 09/28/23 05:51 09/28/23 05:51 Labs: Laboratory Results - last 24 hr 09/27/23 09/27/23 09/27/23 08:21 16:09 19:48 WBC RBC Hgb Hct MCV MCH MCHC RDW Plt Count MPV Immature Gran % (Auto) Neut % (Auto) Lymph % (Auto) [place] % (Auto) Eos % (Auto) Baso % (Auto) Lymph # (Auto) [place] # (Auto) Eos # (Auto) Baso # (Auto) Abs Immat Gran (auto) Absolute Neuts (auto) Absolute Nucleated RBC Nucleated RBC % (auto) Smear Tech's Comments VBG pH VBG pCO2 VBG pO2 VBG HCO3 VBG O2 Saturation VBG Base Excess Sodium Potassium Chloride Carbon Dioxide Anion Gap BUN Creatinine Estim Creat Clear Calc Estimated GFR POC Glucose 299 H 353 H* Random Glucose Calcium Vitamin B12 Folate TSH Free T4 > 5.00 H 09/28/23 09/28/23 09/28/23 05:51 07:06 10:05 WBC 15.7 H RBC 4.33 L Hgb 11.8 L Hct 38.5 L MCV 88.9 MCH 27.3 MCHC 30.6 L RDW 13.5 Plt Count 151 L MPV 12.3 Immature Gran % (Auto) 1.1 H Neut % (Auto) 95.5 H Lymph % (Auto) 1.5 L [place] % (Auto) 1.8 L Eos % (Auto) 0.0 Baso % (Auto) 0.1 Lymph # (Auto) 0.2 L [place] # (Auto) 0.3 Eos # (Auto) 0.0 Baso # (Auto) 0.0 Abs Immat Gran (auto) 0.18 H Absolute Neuts (auto) 15.0 H Absolute Nucleated RBC 0.000 Nucleated RBC % (auto) 0.0 Smear Tech's Comments VERIFIED VBG pH VBG pCO2 VBG pO2 VBG HCO3 VBG O2 Saturation VBG Base Excess Sodium 143 Potassium 3.3 Chloride 86 L Carbon Dioxide 46 H* Anion Gap 14 BUN 37 H Creatinine 1.67 H Estim Creat Clear Calc 40.0 Estimated GFR 40 POC Glucose 234 H Random Glucose 226 H Calcium 9.5 Vitamin B12 349 Folate 3.7 L TSH 0.07 L Free T4 1.44 1.19 09/28/23 09/28/23 10:50 12:20 WBC RBC Hgb Hct MCV MCH MCHC RDW Plt Count MPV Immature Gran % (Auto) Neut % (Auto) Lymph % (Auto) [place] % (Auto) Eos % (Auto) Baso % (Auto) Lymph # (Auto) [place] # (Auto) Eos # (Auto) Baso # (Auto) Abs Immat Gran (auto) Absolute Neuts (auto) Absolute Nucleated RBC Nucleated RBC % (auto) Smear Tech's Comments VBG pH 7.46 H VBG pCO2 82 VBG pO2 40 VBG HCO3 58 H VBG O2 Saturation 62.0 VBG Base Excess 28.0 Sodium Potassium Chloride Carbon Dioxide Anion Gap BUN Creatinine Estim Creat Clear Calc Estimated GFR POC Glucose 344 H Random Glucose Calcium Vitamin B12 Folate TSH Free T4 Microbiology Microbiology Results: Microbiology 09/25/23 18:12 Blood - Venous Blood Culture - Preliminary No growth after 48 hours. 09/25/23 17:21 Blood - Venous Blood Culture - Preliminary No growth after 48 hours. Physical Exam 2 Vital Signs: Vital Signs: Last Vital Signs Temp 98.5 F 09/28/23 10:57 Pulse 99 09/28/23 10:57 Resp 20 09/28/23 10:57 BP 102/60 09/28/23 10:57 Pulse Ox 89 L 09/28/23 10:57 O2 Del Method High Flow Nasal C annula 09/28/23 10:57 O2 Flow Rate 55 09/28/23 10:57 FiO2 66 09/28/23 10:57 Oxygen Flow Rate 15 09/25/23 16:58 BMI result Body Mass Index 23.8 Const: General: no acute distress, alert and awake Eyes: Sclerae: sclerae normal EOM: EOMs intact bilaterally Neck: Neck: Yes no lymphadenopathy, Yes trachea midline and Yes supple Resp: Effort & Inspection: normal respiratory effort and no respiratory distress Auscultation: crackles ( bilateral) Cardio: Rate: regular rate Rhythm: regular rhythm Heart sounds: no gallops, no murmurs and no rubs GI: Palpation (GI): Soft to palpation and Other GI palpation findings present ( Nontender) Auscultation: normal bowel sounds Extrem: General: No clubbing, No cyanosis and Yes edema ( trace bilateral) Procedures Date of Service Date of Service: 09/28/23 Assessment and Plan Assessment and plan (1) Acute respiratory failure with hypoxia and hypercapnia: Status: Acute (2) COPD (chronic obstructive pulmonary disease): Status: Acute (3) Chronic heart failure with preserved ejection fraction: Status: Acute (4) Pulmonary aspiration: Status: Acute Plan Impression: 73-year-old gentleman initially admitted with pulmonary aspiration and COPD exacerbation, now with resolution of his initial concerns, however still with significant hypoxemia requiring high-flow nasal cannula. Initial CT angio with no evidence for pulmonary emboli. Continues on acetazolamide for diuretic. No new infectious etiologies. Recommendations: Patient appears to be amount pressor, consider titrating down to on OxyMask, if unsuccessful, would consider repeating CT angio chest to evaluate for occult emboli. Time Spent With Patient Time: Total time managing care of this patient today ____ minutes. Progress Note: Quality Stroke Does the patient have a stroke diagnosis?: No
[2023-09-28 16:23] LABS: Glucose, Whole Blood 280 mg/dL (60-115)
[2023-09-28 20:30] LABS: Glucose, Whole Blood 242 mg/dL (60-115)
[2023-09-28] MEDS: iohexoL 350 MG/ML 100 ML INFUS..BTL IV (21:39)
[2023-09-28] MEDS: Atorvastatin Calcium 80 MG TABLET PO (22:05)
[2023-09-29] VITALS (15 sets, daily range): BP systolic 136–171; BP diastolic 63–90; PULSE 75–96; RESP 16–20; TEMP 36.2–37.1; O2SAT 91–98
[2023-09-29] MEDS: methylPREDNISolone Sod Succ 40 MG/ML VIAL IVPUSH ×3 (00:32→17:14)
[2023-09-29 07:13] LABS: Glucose, Whole Blood 309 mg/dL (60-115)
[2023-09-29 07:22] LABS: Basophils Percent Auto 0.2 % (0-2); Hematocrit 43.3 % (42.0-52.0); Hemoglobin 13.1 g/dl (14.0-18.0); Imm Gran Abs Auto 0.13 X10*3/uL (0.00-0.03); Imm Gran Pct Auto 0.9 % (0.0-0.4); Lymphocytes Absolute Auto 0.2 X10*3/uL (1.2-4.9); Lymphocytes Percent Auto 1.3 % (20-40); MANUAL DIFF FLAG SCAN; Mean Corpuscular HGB Conc 30.3 g/dl (31.0-36.0); Mean Corpuscular Volume 89.1 fL (80.0-98.0); Mean Platelet Volume 13.2 fL (9.4-12.4); Monocytes Absolute Auto 0.3 X10*3/uL (0.1-1.2); Monocytes Percent Auto 1.8 % (2-11); Neutrophils Absolute Auto 14.5 x10*3/uL (2.0-8.3); Neutrophils Percent Auto 95.8 % (45-73); Platelet Count 173 X10*3/uL (160-400); Red Blood Count 4.86 X10*6/uL (4.60-5.80); Red Cell Distribution Width 13.7 % (11.0-16.0); SCAN SMEAR FLAG 1; White Blood Count 15.1 X10*3/uL (4.8-10.8)
[2023-09-29 07:24] LABS: PLT ABN DIST 1
[2023-09-29 07:48] LABS: SLIDE REVIEW VERIFIED
[2023-09-29 07:49] LABS: TSH reflex Free T4 0.07 uIU/mL (0.32-4.0)
[2023-09-29] MEDS: Albuterol/Iprat 2.5/0.5MG 3 ML AMPUL.NEB INHALE ×4 (07:56→18:53)
[2023-09-29 07:59] LABS: Anion Gap 14 (12-20); Blood Urea Nitrogen 43 mg/dL (9-16); Calcium 9.9 mg/dL (8.4-10.2); Carbon Dioxide 45 mmol/L (22-29); Chloride 87 mmol/L (96-108); Creatinine Clr Calc Pharmacy 34.6; Estimated Glomerular Filt Rate 34; Glucose Random 305 mg/dL (60-115); Potassium 3.9 mmol/L (3.3-5.1); Sodium 142 mmol/L (135-145)
[2023-09-29] MEDS: Metoprolol Tartrate 12.5 MG HALFTAB PO ×2 (08:00→21:59)
[2023-09-29] MEDS: Apixaban 5 MG TABLET PO ×2 (08:02→21:59)
[2023-09-29] MEDS: Folic Acid 1 MG TABLET PO (08:02)
[2023-09-29] MEDS: Insulin Lispro 100 UNIT/ML 3 ML VIAL SUBCUT ×4 (08:02→21:59)
[2023-09-29 08:21] LABS: Estimated Average Glucose 143 mg/dL; Hemoglobin A1c % 6.6 % (<6.0)
[2023-09-29] MEDS: acetaZOLAMIDE sodium 500 MG VIAL 250 MG IVPUSH ×2 (09:23→22:00)
[2023-09-29 09:35] LABS: Free T4 (Free Thyroxine) 1.19 ng/dL (0.71-1.85)
[2023-09-29 09:58] LABS: Adenovirus PCR Not Detected (Not Detect.); Bordetella parapertussis PCR Not Detected (Not Detect.); Bordetella pertussis PCR Not Detected (Not Detect.); Chlamydia pneumoniae PCR Not Detected (Not Detect.); Coronavirus 229E PCR Not Detected (Not Detect.); Coronavirus HKU1 PCR Not Detected (Not Detect.); Coronavirus NL63 PCR Not Detected (Not Detect.); Coronavirus OC43 PCR Not Detected (Not Detect.); Human metapneumovirus PCR Not Detected (Not Detect.); Influenza A PCR Not Detected (Not Detect.); Influenza B PCR Not Detected (Not Detect.); Mycoplasma pneumoniae PCR Not Detected (Not Detect.); Parainfluenza 1 PCR Not Detected (Not Detect.); Parainfluenza 2 PCR Not Detected (Not Detect.); Parainfluenza 3 PCR Not Detected (Not Detect.); Parainfluenza 4 PCR Not Detected (Not Detect.); RSV PCR Not Detected (Not Detect.); Rhino/Enterovirus PCR Not Detected (Not Detect.)
[2023-09-29 10:13] LABS: Venous Blood Gas Refer to POC result
[2023-09-29 10:14] LABS: VBG Base Excess 22.8 mmol/L; VBG HCO3 53 mmol/L (22-26); VBG pCO2 82 mmHg; VBG pH 7.41 (7.32-7.43); VBG pO2 54 mmHg
--- NOTE | 2023-09-29 10:18 | HO.PM.IMPN ---
Subjective Subjective Date of Service: 09/29/23 Interval History: seen and examined this morning follow up for respiratory failure patient remains on highflow; minimal respiratory symptoms, denies sob Review of Systems Review of Systems: Yes all other systems are reviewed and are negative Constitutional Constitutional: Denies chills and Denies fever(s) Cardiovascular Cardiovascular: Denies chest pain and Denies palpitations Gastrointestinal Gastrointestinal: Denies abdominal pain Endocrine Endocrine: Denies palpitations Physical Exam Vital Signs: Vital Signs: Last Vital Signs Temp 97.9 F 09/29/23 07:15 Pulse 81 09/29/23 08:07 Resp 18 09/29/23 09:07 BP 136/65 09/29/23 07:15 Pulse Ox 93 09/29/23 07:15 O2 Del Method High Flow Nasal C annula 09/29/23 07:15 O2 Flow Rate 50 09/29/23 07:15 FiO2 80 09/29/23 07:15 Oxygen Flow Rate 15 09/25/23 16:58 BMI result Body Mass Index 23.8 Const: Other: resting in bed comfortably; in no acute distress General: comfortable, no acute distress, alert and awake Nutritional Appearance: average body habitus Orientation/consciousness: patient oriented x3 Resp: Other: diminished Effort & Inspection: normal respiratory effort, able to speak in complete sentences, no respiratory distress, not tachypneic and no use of accessory muscles Cardio: Rate: regular rate GI: Inspection: No distended Palpation (GI): Soft to palpation and nontender Neuro: Other: grossly nonfocal General: patient oriented x3, moves all extremities and CN's II-XI intact bilaterally Extrem: General: Yes no pedal edema Objective Data Active Medications Acetazolamide (Acetazolamide Sodium 500 Mg Vial) 250 mg IVPUSH BID [facility] Last Admin: 09/29/23 09:23 Dose: 250 mg Documented By: KAUR Albuterol Sulfate (Albuterol Sulfate (0.083%) 2.5 Mg/3 Ml Vial.Neb) 2.5 mg INHALE Q4H PRN PRN Reason: Shortness of Breath/Wheezing Albuterol/Ipratropium (Albuterol/Iprat 2.5/0.5mg 3 Ml Ampul.Neb) 3 ml INHALE RQ4H WHILE AWAKE [facility] Last Admin: 09/29/23 07:56 Dose: 3 ml Documented By: BETHANIE Apixaban (Apixaban 5 Mg Tablet) 5 mg PO BID [facility] Last Admin: 09/29/23 08:02 Dose: 5 mg Documented By: KAUR Atorvastatin Calcium (Atorvastatin Calcium 80 Mg Tablet) 80 mg PO BEDTIME [facility] Last Admin: 09/28/23 22:05 Dose: 80 mg Documented By: AMA Dextrose (Dextrose 50 % 25 Gm/50 Ml Syringe) 25 gm IVPUSH Q30M PRN PRN Reason: BG < 70 Folic Acid (Folic Acid 1 Mg Tablet) 1 mg PO DAILY [facility] Last Admin: 09/29/23 08:02 Dose: 1 mg Documented By: KAUR Levofloxacin (Levaquin) 750 mg in 150 mls @ 100 mls/hr IV Q48H [facility] Last Infusion: 09/28/23 10:35 Dose: Infused Documented By: KAUR Insulin Human Lispro (Insulin Lispro 100 Unit/Ml 3 Ml Vial) 0 unit SUBCUT QIDACHS [facility], [facility]; Protocol Last Admin: 09/29/23 08:02 Dose: 8 unit Documented By: KAUR Methylprednisolone Sodium Succinate (Methylprednisolone Sod Succ 40 Mg/Ml Vial) 40 mg IVPUSH Q8H [facility] Last Admin: 09/29/23 08:02 Dose: 40 mg Documented By: KAUR Metoprolol Tartrate (Metoprolol Tartrate 12.5 Mg Halftab) 12.5 mg PO BID [facility]; Protocol Last Admin: 09/29/23 08:00 Dose: 12.5 mg Documented By: KAUR Labs 09/29/23 06:35 09/29/23 06:32 Labs: Laboratory Results - last 24 hr 09/28/23 09/28/23 09/28/23 12:20 16:15 20:21 MCV MCH MCHC RDW Plt Count MPV Immature Gran % (Auto) Neut % (Auto) Lymph % (Auto) [place] % (Auto) Eos % (Auto) Baso % (Auto) Lymph # (Auto) [place] # (Auto) Eos # (Auto) Baso # (Auto) Abs Immat Gran (auto) Absolute Neuts (auto) Absolute Nucleated RBC Nucleated RBC % (auto) Smear Tech's Comments VBG pH 7.46 H VBG pCO2 82 VBG pO2 40 VBG HCO3 58 H VBG O2 Saturation 62.0 VBG Base Excess 28.0 Anion Gap Estim Creat Clear Calc Estimated GFR POC Glucose 280 H 242 H Random Glucose Estimat Average Glucose Hemoglobin A1c % Calcium TSH Free T4 09/29/23 09/29/23 09/29/23 06:32 06:35 07:04 MCV 89.1 MCH 27.0 MCHC 30.3 L RDW 13.7 Plt Count 173 MPV 13.2 H Immature Gran % (Auto) 0.9 H Neut % (Auto) 95.8 H Lymph % (Auto) 1.3 L [place] % (Auto) 1.8 L Eos % (Auto) 0.0 Baso % (Auto) 0.2 Lymph # (Auto) 0.2 L [place] # (Auto) 0.3 Eos # (Auto) 0.0 Baso # (Auto) 0.0 Abs Immat Gran (auto) 0.13 H Absolute Neuts (auto) 14.5 H Absolute Nucleated RBC 0.000 Nucleated RBC % (auto) 0.0 Smear Tech's Comments VERIFIED VBG pH VBG pCO2 VBG pO2 VBG HCO3 VBG O2 Saturation VBG Base Excess Anion Gap 14 Estim Creat Clear Calc 34.6 Estimated GFR 34 POC Glucose 309 H Random Glucose 305 H Estimat Average Glucose 143 Hemoglobin A1c % 6.6 H Calcium 9.9 TSH 0.07 L Free T4 1.19 09/29/23 09:54 MCV MCH MCHC RDW Plt Count MPV Immature Gran % (Auto) Neut % (Auto) Lymph % (Auto) [place] % (Auto) Eos % (Auto) Baso % (Auto) Lymph # (Auto) [place] # (Auto) Eos # (Auto) Baso # (Auto) Abs Immat Gran (auto) Absolute Neuts (auto) Absolute Nucleated RBC Nucleated RBC % (auto) Smear Tech's Comments VBG pH 7.41 VBG pCO2 82 VBG pO2 54 VBG HCO3 53 H VBG O2 Saturation 78.0 VBG Base Excess 22.8 Anion Gap Estim Creat Clear Calc Estimated GFR POC Glucose Random Glucose Estimat Average Glucose Hemoglobin A1c % Calcium TSH Free T4 Assessment and Plan (1) Pulmonary aspiration: Status: Acute (2) Acute respiratory failure with hypoxia and hypercapnia: Status: Acute (3) Pneumonia: Status: Acute Plan This is a 73 year old male with history of chronic respiratory failure on 2L of supplemental oxygen, COPD, atrial fibrillation on Eliquis, DM, HFpEF, CAD, h/o cocaine use who presented to the ED with shortness of breath found to have hypoxia and pneumonia with concern for aspiration and requiring bipap and ICU level of care, admitted to the ICU on 09/25 and downgraded to the medical floor the following day 09/26. Also noted to have confusion ongoing for unclear period of time, at least several weeks. Acute on chronic respiratory failure with hypoxia and hypercarbia r/t COPD exacerbation, PNA and possible aspiration on baseline 2L at home, o2 requirements increased and now on high flow CTA 09/25 negative for PE, showing diffuse emphysema, b/l lower lobe bronchial opacification, LLL consolidation atelectasis vs infiltrate BNP 58 - no evidence of fluid overload repeat CXR 09/27 negative bicarb remains high, continue diamox continue IV solu-medrol, continue scheduled breathing treatments started on levaquin in ICU, continue for now, MRSA nares pending RPP negative pulmonary following, given persistent hypoxia, unable to wean from high flow - CTA repeated 09/28, negative for PE, showing marked emphysematous change, chronic consolidation LLL and RML; Soft tissue density and fullness of the right aryepiglottic fold, vallecula and piriform sinus. This could be mucus but a mass may be present. Consider direct visualization hyperthyroidism thyroid tests from 09/27 c/w hyperthyroidism repeat test today, 09/28 showing improvement. improvement in mental status. HR controlled. no evidence of thyroid storm at this time Free t3 is send out and pending at this time pt denies previous history of thyroid disease, previous TSH from 2021 was 0.74 discussed with endocrinology, if labs stable no indication for transfer dysphagia seen by speech, rec NDD1 diet with honey thick liquids continue aspiration precautions tolerating diet leukocytosis ?r/t steroids, trending down acute lactic acidosis likely r/t hypoxia not sepsis encephalopathy vs dementia brain CT negative for acute changes, showing microangiopathy and generalized volume loss as well as chronic appearing lacunar infarcts improved. patient awake and oriented and able to answer questions appropriately hypokalemia resolved with replacement atrial fibrillation continue Eliquis resume home dose of metoprolol CKD3 no recent baseline, creatinine previously around 1.7 creatinine 1.93 follow closely chronic HFpEF no acute exacerbation bnp 58 lasix has been on hold T2DM with hyperglycemia hyperglycemia r/t steroids hold glipizide, trulicity POCs, SSI, ADA diet Hba1c 6.6 HTN hold norvasc continue metoprolol follow BP closely CAD resume BB, statin dvt ppx - marianna attending - Dr. Neves called Felisha, daughter listed as primary contact and updated. patient requires ongoing inpatient stay for respiratory failure requiring high flow o2 Quality Stroke Does the patient have a stroke diagnosis?: No VTE Prior VTE?: No VTE Risk Level:: Medical - moderate - high VTE Device Contraindication: N/A - Device Ordered VTE Drug Contraindication: N/A - Med Ordered
[2023-09-29 10:24] LABS: SARS-CoV-2 PCR Not Detected (Not Detect.)
[2023-09-29 11:04] LABS: Glucose, Whole Blood 349 mg/dL (60-115)
[2023-09-29 11:49] LABS: MRSA Nasal PCR NEGATIVE (Negative); SA Nasal PCR NEGATIVE (Negative)
[2023-09-29 16:44] LABS: Glucose, Whole Blood 361 mg/dL (60-115)
[2023-09-29 21:34] LABS: Glucose, Whole Blood 336 mg/dL (60-115)
[2023-09-29] MEDS: Atorvastatin Calcium 80 MG TABLET PO (21:59)
[2023-09-30] VITALS (14 sets, daily range): BP systolic 127–164; BP diastolic 58–77; PULSE 62–89; RESP 16–20; TEMP 36.1–36.8; O2SAT 88–97
[2023-09-30] MEDS: methylPREDNISolone Sod Succ 40 MG/ML VIAL IVPUSH ×4 (00:54→23:39)
--- NOTE | 2023-09-30 01:59 | PC.NURSE ---
Addendum entered by Radha Ríos RN 09/30/23 02:43: MD to bedside with RT. Decision made to obtain VBG instead of ABG. Results pending. Original Note: Pt seen for med pass at approx 0100. Pt needed to be shaken awake, which is not his baseline. Pt drowsy, less engaged in conversation. MD made aware of mental status/behavioral change. Order placed for RT to collect ABG.
[2023-09-30 02:43] LABS: Venous Blood Gas Refer to POC result
[2023-09-30 02:47] LABS: VBG Base Excess 22.7 mmol/L; VBG HCO3 53 mmol/L (22-26); VBG pCO2 85 mmHg; VBG pO2 58 mmHg
[2023-09-30] MEDS: Albuterol Sulfate (0.083%) 2.5 MG/3 ML VIAL.NEB INHALE (03:19)
[2023-09-30] MEDS: Omeprazole 20 MG CAPSULE.DR PO (06:02)
--- NOTE | 2023-09-30 07:00 | CA_ITS ---
Transthoracic Echocardiogram Patient (Last, First, Middle): Josh Vigil L Gender: Male Date of : 1950 Age: 73 Procedure Date: 09/30/2023 Procedure Type: Transthoracic Echocardiogram Location: [facility] [place] Height: 177.8 cm Weight: 75.3 kg BSA: 1.93 m2 Heart Rate: 77 bpm BP: 159 / 67 mmHg Chemical Research Technician: JOSEPH Molina MD: Trini AGUILAR Grades 7 8 Tutor: Alexander Freitas MD Symptoms: Hypoxia eval for shunt Study Quality: Adequate ECG Rhythm: Sinus with extra beats Conclusions: - 1. Normal LV ejection fraction of 60 65% with mild LVH with grade 1 diastolic dysfunction 2. Mild mitral calcification with normal cardiac valvular Dopplers 3. Mildly dilated ascending aorta at 4.1 cm 4. No gross pericardial effusion Findings Procedure Information Contrast agent, definity, is being given per protocol without apparent complications. Left Ventricle Normal left ventricular size and systolic function. There is mildly increased left ventricular wall thickness. The visually estimated ejection fraction is between 60-65%. Spectral Doppler is indicative of an impaired relaxation filling pattern. E/E prime ratio is <8, consistent with normal filling pressures. Right Ventricle Normal right ventricular cavity size and systolic function. Atria The left atrium is likely dilated. There is no evidence of interatrial shunt by agitated saline. The right atrium is normal in size. Aortic Valve Normal aortic valve structure and function. There is no aortic valve stenosis. There is no aortic valve regurgitation. Mitral Valve There is mild anterior and posterior mitral leaflet thickening. There is mild mitral annular calcification. There is trace mitral valve regurgitation. There is no mitral valve stenosis. Pulmonic Valve The pulmonic valve was not well visualized. Tricuspid Valve Likely normal tricuspid valve structure and function. Tricuspid regurgitation envelope is inadequate for calculation of right ventricular systolic pressure. Normal right atrial pressure. Great Vessels The pulmonary artery was not well visualized. There is mild dilatation of the ascending aorta measuring 4.10 cm. Venous The inferior vena cava is normal in size and collapses greater than 50% with inspiration. Pericardium/Pleural There is no evidence of pericardial effusion. Measurements 2D Linear Measurements IVSd: 1.15 0.6-0.9/0.6-1.0 cm LVIDd: 4.45 3.9-5.3/4.2-5.9 cm LVIDd Index: 2.31 2.4-3.2/2.2-3.1 cm/m2 LVIDs: 3.85 2.0-3.6 cm LVPWd: 1.20 0.7-1.1 cm LA Diam: 4.80 2.7-3.8/3.0-4.0 cm LAIDs Index: 2.49 1.5-2.3 cm/m2 LV Mass: 235.36 67-162/88-224 g LV Mass Index: 121.95 43-95/49-115 g/m2 LVOT Diam: 2.30 3.0+(-)1.3 cm 2D Systolic Function EF 4C: 60.00 >55% EF 2C: 65.70 >55% EF BiP: 63.50 >55% Mitral Valve MV Pk E: 0.70 MV PK A: 1.18 MV Decel Time: 367.00 E/A: 0.60 E'Lateral: 8.81 E'Medial: 5.98 E/E' Med: 11.70 E/E' Lat: 7.90 PHT: 107.00 MVA PHT: 2.[address] [place]: 1.91 Aortic Valve AoV Pk Abdelrahman: 1.33 AoV Mn Abdelrahman: 0.93 AoV VTI: 0.28 AoV Pk Grad: 7.00 Aov Mn Grad: 4.00 KURT Cont.VTI: 3.06 LVOT LVOT Pk Abdelrahman: 1.00 LVOT Mn Abdelrahman: 0.65 LVOT VTI: 0.21 LVOT Pk Grad: 4.00 LVOT Mn Grad: 2.00 LVOT Diam: 2.30 LVOT Area: 4.15 Diastolic Function MV Pk E: 0.70 MV Pk A: 1.18 E/A: 0.60 E'Medial: 5.98 E/E' Med: 11.70 E' Laterial: 8.81 E/E' Lat: 7.90 Right Ventricle TAPSE (mm): 12.60 TVS' Abdelrahman: 8.16 Tricuspid Valve RA Press: 3.00 Great Vessels Aorta Sinus of Valsalva: 4.00 2.0-3.5 cm Ao Asc: 4.10 2.1-3.4 cm Pulmonary Valve PV Pk Abdelrahman: 1.10 Peak PV Grad: 5.00 Updated in Other Vendor System with Status of Final Alexander Freitas MD electronically signed on 09/30/2023 11:58:26 AM with status of Final
[2023-09-30 07:11] LABS: Basophils Percent Auto 0.1 % (0-2); Hematocrit 44.1 % (42.0-52.0); Hemoglobin 13.1 g/dl (14.0-18.0); Imm Gran Abs Auto 0.11 X10*3/uL (0.00-0.03); Imm Gran Pct Auto 0.8 % (0.0-0.4); Lymphocytes Absolute Auto 0.2 X10*3/uL (1.2-4.9); Lymphocytes Percent Auto 1.6 % (20-40); MANUAL DIFF FLAG SCAN; Mean Corpuscular HGB Conc 29.7 g/dl (31.0-36.0); Mean Corpuscular Hemoglobin 26.1 pg (27.0-33.0); Mean Platelet Volume 12.7 fL (9.4-12.4); Monocytes Absolute Auto 0.3 X10*3/uL (0.1-1.2); Monocytes Percent Auto 1.9 % (2-11); Neutrophils Absolute Auto 12.9 x10*3/uL (2.0-8.3); Neutrophils Percent Auto 95.6 % (45-73); Platelet Count 190 X10*3/uL (160-400); Red Blood Count 5.01 X10*6/uL (4.60-5.80); Red Cell Distribution Width 13.7 % (11.0-16.0); SCAN SMEAR FLAG 1; White Blood Count 13.4 X10*3/uL (4.8-10.8)
[2023-09-30 07:26] LABS: Glucose, Whole Blood 292 mg/dL (60-115)
[2023-09-30] MEDS: Albuterol/Iprat 2.5/0.5MG 3 ML AMPUL.NEB INHALE ×4 (07:26→19:31)
[2023-09-30 07:52] LABS: Anion Gap 14 (12-20); Blood Urea Nitrogen 48 mg/dL (9-16); Calcium 9.9 mg/dL (8.4-10.2); Carbon Dioxide 45 mmol/L (22-29); Chloride 86 mmol/L (96-108); Creatinine Clr Calc Pharmacy 36.5; Estimated Glomerular Filt Rate 36; Glucose Random 289 mg/dL (60-115); Potassium 3.4 mmol/L (3.3-5.1); Sodium 142 mmol/L (135-145)
[2023-09-30 08:19] LABS: SLIDE REVIEW VERIFIED
[2023-09-30] MEDS: levoFLOXacin/D5W 750 MG/150 ML PIGGYBACK 100 MG IV (08:19)
[2023-09-30] MEDS: Insulin Lispro 100 UNIT/ML 3 ML VIAL SUBCUT ×5 (08:19→20:25)
[2023-09-30] MEDS: Metoprolol Tartrate 12.5 MG HALFTAB PO ×2 (08:20→20:24)
[2023-09-30] MEDS: Apixaban 5 MG TABLET PO ×2 (08:20→20:24)
[2023-09-30] MEDS: Folic Acid 1 MG TABLET PO (08:20)
[2023-09-30] MEDS: acetaZOLAMIDE sodium 500 MG VIAL 250 MG IVPUSH ×2 (08:20→20:24)
--- NOTE | 2023-09-30 09:41 | MHC.CM.PN ---
Per WIRE DROPPER, Patient is not yet medically cleared for dc (Echo needed and Pulmonology intervention); PT eval may be helpful with disposition. CM will follow.
--- NOTE | 2023-09-30 10:54 | MHC.SL.SWA ---
Speech Pathologist Impression: Risk of aspiration, oropharyngeal dysphagia Risk of Aspiration Due to: History of Pneumonia Reduced Cognition Weak Voice Dysphasia Diet Status: No change at this time Liquid Consistency and Strategies for Safe Swallow: Liquid Intake Recommendation: Honey Thick Liquid Intake Strategies: Small Sips No Straws Solid Food Consistency: Dietary Recommendations: Pureed (NDD1) Additional Modifications to Solid Foods: Recommend PUREED (NDD1) diet and HONEY THICK liquids via teaspoon or controlled cup (NO STRAWS), pills CRUSHED in PUREE. Recommend 1:1 supervision, provide pt w/ assistance as needed with tray set up and throughout meal, provide cues for strategies (upright positioning, small bites/sips, slow pacing, ensure oral cavity is clear before taking more bites/sips, dry swallow between bites/sips), monitor pt closely. Aspiration precautions apply. Oral Medication Intake: Crushed with Puree Please contact the pharmacy regarding appropriate crushable or liquid drug formulations that are available whenever modified delivery is recommended. Compensatory Strategies and Precautions to be Taken for Safe Swallow: Sitting Upright (90 deg) No Straw Small Bites and Sips Rate of Ingestion Change Oral Check Supervision While Eating and Drinking for Safe Swallow: Total Assistance (1:1) Swallowing Recommended Treatments: Compens. Strategy Educat. Recommendation for Speech: Inpatient Speech Therapy Comment: 1:1 assistance and strict aspiration precautions Frequency/Duration: PRN M-F Date Range for Service Req: Timeline to reassess: Residential Carpenter Clinican/Clinical Fellow: No Supervisory Statement: I have reviewed and agree with the student/clinical fellow's documentation: N/A Speech Language Pathologist: Ashtyn Neil M.A., CCC-SHIP RIGGER
--- NOTE | 2023-09-30 11:14 | HE.PHANOTE ---
LEVOFLOXACIN IV TO PO OK TO CHANGE TO PO PER [facility]
--- NOTE | 2023-09-30 11:47 | P.PNIM_ITS ---
Subjective Subjective Date of Service: 09/30/23 Review of Systems Follow-up hypoxic respiratory failure Feeling better not as shortness of breath, still on high-flow Constitutional Constitutional: Denies chills and Denies fever(s) Cardiovascular Cardiovascular: Denies chest pain and Denies palpitations Endocrine Endocrine: Denies palpitations Physical Exam 2 Vital Signs: Vital Signs: Last Vital Signs Temp 97.0 F 09/30/23 11:15 Pulse 88 09/30/23 11:15 Resp 20 09/30/23 11:15 BP 127/58 L 09/30/23 11:15 Pulse Ox 90 L 09/30/23 11:15 O2 Del Method High Flow Nasal C annula 09/30/23 11:15 O2 Flow Rate 60 09/30/23 11:15 FiO2 75 09/30/23 11:15 Oxygen Flow Rate 15 09/25/23 16:58 BMI result Body Mass Index 23.8 Appearing in no acute distress lung sounds are clear to auscultation heart regular rate rhythm, clear S1, S2 positive bowel sounds, abdomen is soft, nontender neuro patient is alert x3, no focal deficits Objective Data Active Medications Acetazolamide (Acetazolamide Sodium 500 Mg Vial) 250 mg IVPUSH BID [facility] Last Admin: 09/30/23 08:20 Dose: 250 mg Documented By: MARIAE LENA Albuterol Sulfate (Albuterol Sulfate (0.083%) 2.5 Mg/3 Ml Vial.Neb) 2.5 mg INHALE Q4H PRN PRN Reason: Shortness of Breath/Wheezing Last Admin: 09/30/23 03:19 Dose: 2.5 mg Documented By: AMA Albuterol/Ipratropium (Albuterol/Iprat 2.5/0.5mg 3 Ml Ampul.Neb) 3 ml INHALE RQ4H WHILE AWAKE [facility] Last Admin: 09/30/23 11:09 Dose: 3 ml Documented By: GOLDEN Apixaban (Apixaban 5 Mg Tablet) 5 mg PO BID [facility] Last Admin: 09/30/23 08:20 Dose: 5 mg Documented By: MARIA ELENA Atorvastatin Calcium (Atorvastatin Calcium 80 Mg Tablet) 80 mg PO BEDTIME [facility] Last Admin: 09/29/23 21:59 Dose: 80 mg Documented By: AMA Dextrose (Dextrose 50 % 25 Gm/50 Ml Syringe) 25 gm IVPUSH Q30M PRN PRN Reason: BG < 70 Folic Acid (Folic Acid 1 Mg Tablet) 1 mg PO DAILY [facility] Last Admin: 09/30/23 08:20 Dose: 1 mg Documented By: MARIA ELENA Insulin Human Lispro (Insulin Lispro 100 Unit/Ml 3 Ml Vial) 0 unit SUBCUT QIDACHS [facility]; Protocol Last Admin: 09/30/23 08:19 Dose: 6 unit Documented By: MARIA ELENA Levofloxacin (Levofloxacin 750 Mg Tablet) 750 mg PO Q48H [facility] Methylprednisolone Sodium Succinate (Methylprednisolone Sod Succ 40 Mg/Ml Vial) 40 mg IVPUSH Q8H [facility] Last Admin: 09/30/23 08:20 Dose: 40 mg Documented By: MARIA ELENA Metoprolol Tartrate (Metoprolol Tartrate 12.5 Mg Halftab) 12.5 mg PO BID [facility]; Protocol Last Admin: 09/30/23 08:20 Dose: 12.5 mg Documented By: MARIA ELENA Omeprazole (Omeprazole 20 Mg Capsule.Dr) 20 mg PO DAILY@0630 [facility] Last Admin: 09/30/23 06:02 Dose: 20 mg Documented By: AMA Labs 09/30/23 06:32 09/30/23 06:32 Labs: Laboratory Results - last 24 hr 09/29/23 09/29/23 09/29/23 10:30 16:27 21:26 MCV MCH MCHC RDW Plt Count MPV Immature Gran % (Auto) Neut % (Auto) Lymph % (Auto) [place] % (Auto) Eos % (Auto) Baso % (Auto) Lymph # (Auto) [place] # (Auto) Eos # (Auto) Baso # (Auto) Abs Immat Gran (auto) Absolute Neuts (auto) Absolute Nucleated RBC Nucleated RBC % (auto) Smear Tech's Comments VBG pH VBG pCO2 VBG pO2 VBG HCO3 VBG O2 Saturation VBG Base Excess Anion Gap Estim Creat Clear Calc Estimated GFR POC Glucose 361 H* 336 H Random Glucose Calcium Nasal Screen MRSA (PCR) NEGATIVE Nasal S. aureus Screen NEGATIVE Nasal MRSA/S.aureus Interp SEE NOTE 09/30/23 09/30/23 09/30/23 02:39 06:32 07:16 MCV 88.0 MCH 26.1 L MCHC 29.7 L RDW 13.7 Plt Count 190 MPV 12.7 H Immature Gran % (Auto) 0.8 H Neut % (Auto) 95.6 H Lymph % (Auto) 1.6 L [place] % (Auto) 1.9 L Eos % (Auto) 0.0 Baso % (Auto) 0.1 Lymph # (Auto) 0.2 L [place] # (Auto) 0.3 Eos # (Auto) 0.0 Baso # (Auto) 0.0 Abs Immat Gran (auto) 0.11 H Absolute Neuts (auto) 12.9 H Absolute Nucleated RBC 0.000 Nucleated RBC % (auto) 0.0 Smear Tech's Comments VERIFIED VBG pH 7.40 VBG pCO2 85 VBG pO2 58 VBG HCO3 53 H VBG O2 Saturation 84.0 VBG Base Excess 22.7 Anion Gap 14 Estim Creat Clear Calc 36.5 Estimated GFR 36 POC Glucose 292 H Random Glucose 289 H Calcium 9.9 Nasal Screen MRSA (PCR) Nasal S. aureus Screen Nasal MRSA/S.aureus Interp Assessment and Plan (1) Pulmonary aspiration: Status: Acute (2) Acute respiratory failure with hypoxia and hypercapnia: Status: Acute (3) Pneumonia: Status: Acute Plan This is a 73 year old male with history of chronic respiratory failure on 2L of supplemental oxygen, COPD, atrial fibrillation on Eliquis, DM, HFpEF, CAD, h/o cocaine use who presented to the ED with shortness of breath found to have hypoxia and pneumonia with concern for aspiration and requiring bipap and ICU level of care, admitted to the ICU on 09/25 and downgraded to the medical floor the following day 09/26. Also noted to have confusion ongoing for unclear period of time, at least several weeks. Acute on chronic respiratory failure with hypoxia and hypercarbia r/t COPD exacerbation, PNA and possible aspiration on baseline 2L at home, o2 requirements increased and now on high flow CTA 09/25 negative for PE, showing diffuse emphysema, b/l lower lobe bronchial opacification, LLL consolidation atelectasis vs infiltrate BNP 58 - no evidence of fluid overload repeat CXR 09/27 negative bicarb remains high, continue diamox continue IV solu-medrol, continue scheduled breathing treatments started on levaquin in ICU, continue for now, MRSA nares negative RPP negative pulmonary following, given persistent hypoxia, unable to wean from high flow - CTA repeated 09/28, negative for PE, showing marked emphysematous change, chronic consolidation LLL and RML; Soft tissue density and fullness of the right aryepiglottic fold, vallecula and piriform sinus. This could be mucus but a mass may be present. Consider direct visualization T2DM with hyperglycemia hyperglycemia r/t steroids hold glipizide, trulicity POCs, SSI, ADA diet Hba1c 6.6 if continues to be elevated consider mealtime insulin hyperthyroidism thyroid tests from 09/27 c/w hyperthyroidism repeat test today, 09/28 showing improvement. improvement in mental status. HR controlled. no evidence of thyroid storm at this time Free t3 is send out and pending at this time pt denies previous history of thyroid disease, previous TSH from 2021 was 0.74 discussed with endocrinology, if labs stable no indication for transfer dysphagia seen by speech, rec NDD1 diet with honey thick liquids continue aspiration precautions tolerating diet leukocytosis ?r/t steroids, trending down acute lactic acidosis likely r/t hypoxia not sepsis encephalopathy vs dementia brain CT negative for acute changes, showing microangiopathy and generalized volume loss as well as chronic appearing lacunar infarcts improved. patient awake and oriented and able to answer questions appropriately hypokalemia resolved with replacement atrial fibrillation continue Eliquis resume home dose of metoprolol CKD3 no recent baseline, creatinine previously around 1.7 follow closely chronic HFpEF no acute exacerbation bnp 58 lasix has been on hold HTN hold norvasc continue metoprolol follow BP closely CAD resume BB, statin dvt ppx - eliquis attending - Dr. Neves patient requires ongoing inpatient stay for respiratory failure requiring high flow o2 Quality Stroke Does the patient have a stroke diagnosis?: No VTE Prior VTE?: No VTE Risk Level:: Medical - moderate - high VTE Device Contraindication: N/A - Device Ordered VTE Drug Contraindication: N/A - Med Ordered
[2023-09-30 11:51] LABS: Glucose, Whole Blood 424 mg/dL (60-115)
[2023-09-30 16:04] LABS: Glucose, Whole Blood 340 mg/dL (60-115)
[2023-09-30 19:51] LABS: Glucose, Whole Blood 347 mg/dL (60-115)
[2023-09-30] MEDS: Atorvastatin Calcium 80 MG TABLET PO (20:24)
[2023-10-01] VITALS (13 sets, daily range): BP systolic 141–161; BP diastolic 63–72; PULSE 74–90; RESP 16–24; TEMP 36.1–36.4; O2SAT 94–98
[2023-10-01] MEDS: Omeprazole 20 MG CAPSULE.DR PO (05:37)
[2023-10-01 07:51] LABS: Glucose, Whole Blood 369 mg/dL (60-115)
[2023-10-01] MEDS: Albuterol/Iprat 2.5/0.5MG 3 ML AMPUL.NEB INHALE ×4 (07:51→19:18)
[2023-10-01] MEDS: Insulin Lispro 100 UNIT/ML 3 ML VIAL SUBCUT ×5 (08:23→21:40)
[2023-10-01] MEDS: methylPREDNISolone Sod Succ 40 MG/ML VIAL IVPUSH ×2 (08:24→17:06)
[2023-10-01] MEDS: Metoprolol Tartrate 12.5 MG HALFTAB PO ×2 (08:24→21:39)
[2023-10-01] MEDS: acetaZOLAMIDE sodium 500 MG VIAL 250 MG IVPUSH ×2 (08:24→21:55)
[2023-10-01] MEDS: Folic Acid 1 MG TABLET PO (08:24)
[2023-10-01] MEDS: Apixaban 5 MG TABLET PO ×2 (08:24→21:40)
[2023-10-01 09:05] LABS: Anion Gap 14 (12-20); Blood Urea Nitrogen 49 mg/dL (9-16); Carbon Dioxide 42 mmol/L (22-29); Chloride 88 mmol/L (96-108); Creatinine Clr Calc Pharmacy 40.3; Estimated Glomerular Filt Rate 41; Glucose Random 405 mg/dL (60-115); Potassium 4.3 mmol/L (3.3-5.1); Sodium 140 mmol/L (135-145)
--- NOTE | 2023-10-01 10:42 | HO.PM.IMPN ---
Subjective Subjective Date of Service: 10/01/23 Review of Systems Follow-up hypoxic respiratory failure Feeling better not as shortness of breath, still on high-flow Constitutional Constitutional: Denies chills and Denies fever(s) Cardiovascular Cardiovascular: Denies chest pain and Denies palpitations Endocrine Endocrine: Denies palpitations Physical Exam Vital Signs: Vital Signs: Last Vital Signs Temp 97.6 F 10/01/23 07:12 Pulse 76 10/01/23 07:52 Resp 20 10/01/23 07:52 BP 146/63 H 10/01/23 07:12 Pulse Ox 97 10/01/23 07:12 O2 Del Method High Flow Nasal C annula 10/01/23 07:12 O2 Flow Rate 30 10/01/23 07:12 FiO2 71.3 10/01/23 07:12 Oxygen Flow Rate 15 09/25/23 16:58 BMI result Body Mass Index 23.8 Appearing in no acute distress lung sounds wheezing heart regular rate rhythm, clear S1, S2 positive bowel sounds, abdomen is soft, nontender neuro patient is alert x3, no focal deficits Objective Data Active Medications Acetazolamide (Acetazolamide Sodium 500 Mg Vial) 250 mg IVPUSH BID [facility] Last Admin: 10/01/23 08:24 Dose: 250 mg Documented By: MARIA ELENA Albuterol Sulfate (Albuterol Sulfate (0.083%) 2.5 Mg/3 Ml Vial.Neb) 2.5 mg INHALE Q4H PRN PRN Reason: Shortness of Breath/Wheezing Last Admin: 09/30/23 03:19 Dose: 2.5 mg Documented By: AMA Albuterol/Ipratropium (Albuterol/Iprat 2.5/0.5mg 3 Ml Ampul.Neb) 3 ml INHALE RQ4H WHILE AWAKE [facility] Last Admin: 10/01/23 07:51 Dose: 3 ml Documented By: JULIUS Apixaban (Apixaban 5 Mg Tablet) 5 mg PO BID [facility] Last Admin: 10/01/23 08:24 Dose: 5 mg Documented By: MARIA ELENA Atorvastatin Calcium (Atorvastatin Calcium 80 Mg Tablet) 80 mg PO BEDTIME [facility] Last Admin: 09/30/23 20:24 Dose: 80 mg Documented By: CASTILM Dextrose (Dextrose 50 % 25 Gm/50 Ml Syringe) 25 gm IVPUSH Q30M PRN PRN Reason: BG < 70 Folic Acid (Folic Acid 1 Mg Tablet) 1 mg PO DAILY [facility] Last Admin: 10/01/23 08:24 Dose: 1 mg Documented By: MARIA ELENA Insulin Human Lispro (Insulin Lispro 100 Unit/Ml 3 Ml Vial) 0 unit SUBCUT QIDACHS [facility]; Protocol Last Admin: 10/01/23 08:23 Dose: 10 unit Documented By: MARIA ELENA Levofloxacin (Levofloxacin 750 Mg Tablet) 750 mg PO Q48H [facility] Methylprednisolone Sodium Succinate (Methylprednisolone Sod Succ 40 Mg/Ml Vial) 40 mg IVPUSH Q8H [facility] Last Admin: 10/01/23 08:24 Dose: 40 mg Documented By: MARIA ELENA Metoprolol Tartrate (Metoprolol Tartrate 12.5 Mg Halftab) 12.5 mg PO BID [facility]; Protocol Last Admin: 10/01/23 08:24 Dose: 12.5 mg Documented By: MARIA ELENA Omeprazole (Omeprazole 20 Mg Capsule.Dr) 20 mg PO DAILY@0630 [facility] Last Admin: 10/01/23 05:37 Dose: 20 mg Documented By: MERLYNILTeresa Labs 09/30/23 06:32 10/01/23 08:28 Labs: Laboratory Results - last 24 hr 09/30/23 09/30/23 09/30/23 11:18 15:57 19:45 Anion Gap Estim Creat Clear Calc Estimated GFR POC Glucose 424 H* 340 H 347 H Random Glucose Calcium 10/01/23 10/01/23 07:16 08:28 Anion Gap 14 Estim Creat Clear Calc 40.3 Estimated GFR 41 POC Glucose 369 H* Random Glucose 405 H* Calcium 9.0 D Microbiology Microbiology Results: Microbiology 09/25/23 18:12 Blood Culture - Final Blood - Venous No growth after 5 days. 09/25/23 17:21 Blood Culture - Final Blood - Venous No growth after 5 days. Assessment and Plan (1) Pulmonary aspiration: Status: Acute (2) Acute respiratory failure with hypoxia and hypercapnia: Status: Acute (3) Pneumonia: Status: Acute Plan This is a 73 year old male with history of chronic respiratory failure on 2L of supplemental oxygen, COPD, atrial fibrillation on Eliquis, DM, HFpEF, CAD, h/o cocaine use who presented to the ED with shortness of breath found to have hypoxia and pneumonia with concern for aspiration and requiring bipap and ICU level of care, admitted to the ICU on 09/25 and downgraded to the medical floor the following day 09/26. Also noted to have confusion ongoing for unclear period of time, at least several weeks. Acute on chronic respiratory failure with hypoxia and hypercarbia r/t COPD exacerbation, PNA and possible aspiration on baseline 2L at home, o2 requirements increased and now on high flow continue IV solu-medrol, continue scheduled breathing treatments started on levaquin in ICU, continue for now, MRSA nares negative RPP negative pulmonary following, given persistent hypoxia, unable to wean from high flow - CTA repeated 09/28, negative for PE, showing marked emphysematous change, chronic consolidation LLL and RML; Soft tissue density and fullness of the right aryepiglottic fold, vallecula and piriform sinus. This could be mucus but a mass may be present. Consider direct visualization aacute Metabolic acidosis bicarb remains high continue diamox T2DM with hyperglycemia hyperglycemia r/t steroids hold glipizide, trulicity POCs, SSI, ADA diet Hba1c 6.6 if continues to be elevated consider mealtime insulin hyperthyroidism thyroid tests from 09/27 c/w hyperthyroidism repeat test today, 09/28 showing improvement. improvement in mental status. HR controlled. no evidence of thyroid storm at this time Free t3 is send out and pending at this time pt denies previous history of thyroid disease, previous TSH from 2021 was 0.74 discussed with endocrinology, if labs stable no indication for transfer dysphagia seen by speech, rec NDD1 diet with honey thick liquids continue aspiration precautions tolerating diet leukocytosis ?r/t steroids, trending down acute lactic acidosis likely r/t hypoxia not sepsis encephalopathy vs dementia brain CT negative for acute changes, showing microangiopathy and generalized volume loss as well as chronic appearing lacunar infarcts improved. patient awake and oriented and able to answer questions appropriately hypokalemia resolved with replacement atrial fibrillation continue Eliquis resume home dose of metoprolol CKD3 no recent baseline, creatinine previously around 1.7 follow closely chronic HFpEF no acute exacerbation bnp 58 lasix has been on hold HTN hold norvasc continue metoprolol follow BP closely CAD resume BB, statin dvt ppx - marianna attending - Dr. Bethea patient requires ongoing inpatient stay for respiratory failure requiring high flow o2 Quality Stroke Does the patient have a stroke diagnosis?: No VTE Prior VTE?: No VTE Risk Level:: Medical - moderate - high VTE Device Contraindication: N/A - Device Ordered VTE Drug Contraindication: N/A - Med Ordered
[2023-10-01 11:33] LABS: Glucose, Whole Blood 373 mg/dL (60-115)
--- NOTE | 2023-10-01 15:06 | MHC.SPEECHCO ---
Unable to see pt due to time constraints. Per RN, Pt is tolerating current recommendations well and remains on HFNC and was titrated down today. METAL DRESSER will re-attempt tomorrow morning.
[2023-10-01 16:42] LABS: Glucose, Whole Blood 382 mg/dL (60-115)
--- NOTE | 2023-10-01 19:30 | PC.NURSE ---
received report from overnight RN. Meds administered per JAN. notified for each POC over 350 per protocol for 7am-7pm shift, see JAN.
[2023-10-01 20:19] LABS: Glucose, Whole Blood 339 mg/dL (60-115)
[2023-10-01] MEDS: Atorvastatin Calcium 80 MG TABLET PO (21:39)
[2023-10-02] VITALS (13 sets, daily range): BP systolic 136–153; BP diastolic 61–71; PULSE 64–95; RESP 17–20; TEMP 36.1–37.3; O2SAT 88–99
[2023-10-02] MEDS: methylPREDNISolone Sod Succ 40 MG/ML VIAL IVPUSH ×3 (00:10→17:01)
[2023-10-02 03:59] LABS: Triiodothyronine T3 Free 1.8 pg/mL (2.3-4.2)
[2023-10-02] MEDS: Omeprazole 20 MG CAPSULE.DR PO (06:34)
[2023-10-02 06:45] LABS: Anion Gap 15 (12-20); Blood Urea Nitrogen 58 mg/dL (9-16); Calcium 8.7 mg/dL (8.4-10.2); Carbon Dioxide 38 mmol/L (22-29); Chloride 89 mmol/L (96-108); Creatinine Clr Calc Pharmacy 37.3; Estimated Glomerular Filt Rate 37; Potassium 4.3 mmol/L (3.3-5.1); Sodium 138 mmol/L (135-145)
[2023-10-02 06:53] LABS: Glucose Random 422 mg/dL (60-115)
[2023-10-02] MEDS: Albuterol/Iprat 2.5/0.5MG 3 ML AMPUL.NEB INHALE ×4 (07:49→19:22)
[2023-10-02 07:55] LABS: Glucose, Whole Blood 301 mg/dL (60-115)
[2023-10-02] MEDS: Metoprolol Tartrate 12.5 MG HALFTAB PO ×2 (08:06→20:31)
[2023-10-02] MEDS: levoFLOXacin 750 MG TABLET PO (08:06)
[2023-10-02] MEDS: Apixaban 5 MG TABLET PO ×2 (08:06→20:31)
[2023-10-02] MEDS: Insulin Lispro 100 UNIT/ML 3 ML VIAL SUBCUT ×9 (08:06→20:41)
[2023-10-02] MEDS: Folic Acid 1 MG TABLET PO (08:06)
[2023-10-02] MEDS: acetaZOLAMIDE sodium 500 MG VIAL 250 MG IVPUSH ×2 (08:28→20:31)
--- NOTE | 2023-10-02 08:41 | MHC.CM.PN ---
Per CAD INTERN, Patient is on high flow O2 and is not yet medically cleared for dc. Patient may benefit from a PT eval closer to dc, to assist with disposition.CM will follow.
--- NOTE | 2023-10-02 10:40 | P.PNIM_ITS ---
Subjective Subjective Date of Service: 10/02/23 Review of Systems Follow-up hypoxic respiratory failure Feeling better not as shortness of breath, still on high-flow Constitutional Constitutional: Denies chills and Denies fever(s) Cardiovascular Cardiovascular: Denies chest pain and Denies palpitations Endocrine Endocrine: Denies palpitations Physical Exam 2 Vital Signs: Vital Signs: Last Vital Signs Temp 97.0 F 10/02/23 07:13 Pulse 82 10/02/23 07:13 Resp 18 10/02/23 07:50 BP 144/63 H 10/02/23 07:13 Pulse Ox 93 10/02/23 07:13 O2 Del Method High Flow Nasal C annula 10/02/23 07:13 O2 Flow Rate 30 10/02/23 07:13 FiO2 64 10/02/23 07:13 Oxygen Flow Rate 15 09/25/23 16:58 BMI result Body Mass Index 23.8 Appearing in no acute distress lung sounds are clear to auscultation, rhonchi heart regular rate rhythm, clear S1, S2 positive bowel sounds, abdomen is soft, nontender neuro patient is alert x3, no focal deficits Objective Data Active Medications Acetazolamide (Acetazolamide Sodium 500 Mg Vial) 250 mg IVPUSH BID [facility] Last Admin: 10/02/23 08:28 Dose: 250 mg Documented By: RICH Albuterol Sulfate (Albuterol Sulfate (0.083%) 2.5 Mg/3 Ml Vial.Neb) 2.5 mg INHALE Q4H PRN PRN Reason: Shortness of Breath/Wheezing Last Admin: 09/30/23 03:19 Dose: 2.5 mg Documented By: AMA Albuterol/Ipratropium (Albuterol/Iprat 2.5/0.5mg 3 Ml Ampul.Neb) 3 ml INHALE RQ4H WHILE AWAKE [facility] Last Admin: 10/02/23 07:49 Dose: 3 ml Documented By: AWA Apixaban (Apixaban 5 Mg Tablet) 5 mg PO BID [facility] Last Admin: 10/02/23 08:06 Dose: 5 mg Documented By: RICH Atorvastatin Calcium (Atorvastatin Calcium 80 Mg Tablet) 80 mg PO BEDTIME [facility] Last Admin: 10/01/23 21:39 Dose: 80 mg Documented By: JOHN Dextrose (Dextrose 50 % 25 Gm/50 Ml Syringe) 25 gm IVPUSH Q30M PRN PRN Reason: BG < 70 Folic Acid (Folic Acid 1 Mg Tablet) 1 mg PO DAILY [facility] Last Admin: 10/02/23 08:06 Dose: 1 mg Documented By: RICH Insulin Human Lispro (Insulin Lispro 100 Unit/Ml 3 Ml Vial) 0 unit SUBCUT QIDAS [facility]; Protocol Last Admin: 10/02/23 08:06 Dose: 8 unit Documented By: RICH Insulin Human Lispro (Insulin Lispro 100 Unit/Ml 3 Ml Vial) 5 unit SUBCUT QIDAS [facility] Levofloxacin (Levofloxacin 750 Mg Tablet) 750 mg PO Q48H [facility] Last Admin: 10/02/23 08:06 Dose: 750 mg Documented By: RICH Methylprednisolone Sodium Succinate (Methylprednisolone Sod Succ 40 Mg/Ml Vial) 40 mg IVPUSH Q8H [facility] Last Admin: 10/02/23 08:06 Dose: 40 mg Documented By: RICH Metoprolol Tartrate (Metoprolol Tartrate 12.5 Mg Halftab) 12.5 mg PO BID [facility]; Protocol Last Admin: 10/02/23 08:06 Dose: 12.5 mg Documented By: RICH Omeprazole (Omeprazole 20 Mg Capsule.) 20 mg PO DAILY@0630 [facility] Last Admin: 10/02/23 06:34 Dose: 20 mg Documented By: JOHN Labs 09/30/23 06:32 10/02/23 05:32 Labs: Laboratory Results - last 24 hr 09/28/23 10/01/23 10/01/23 05:51 11:29 16:38 Hold Purple Top Anion Gap Estim Creat Clear Calc Estimated GFR POC Glucose 373 H* 382 H* Random Glucose Calcium Free T3 1.8 L 10/01/23 10/02/23 10/02/23 20:11 05:32 07:11 Hold Purple Top SEE NOTE Anion Gap 15 Estim Creat Clear Calc 37.3 Estimated GFR 37 POC Glucose 339 H 301 H Random Glucose 422 H* Calcium 8.7 Free T3 Assessment and Plan (1) Pulmonary aspiration: Status: Acute (2) Acute respiratory failure with hypoxia and hypercapnia: Status: Acute (3) Pneumonia: Status: Acute Plan This is a 73 year old male with history of chronic respiratory failure on 2L of supplemental oxygen, COPD, atrial fibrillation on Eliquis, DM, HFpEF, CAD, h/o cocaine use who presented to the ED with shortness of breath found to have hypoxia and pneumonia with concern for aspiration and requiring bipap and ICU level of care, admitted to the ICU on 09/25 and downgraded to the medical floor the following day 09/26. Also noted to have confusion ongoing for unclear period of time, at least several weeks. Acute on chronic respiratory failure with hypoxia and hypercarbia r/t COPD exacerbation, PNA and aspiration on baseline 2L at home continue IV solu-medrol, continue scheduled breathing treatments continue levaquin RPP negative pulmonary following on 64%, 40L high flow sats > than 92% acute Metabolic acidosis bicarb remains high continue diamox DM2 with hyperglycemia r/t steroids hold glipizide, trulicity POCs, SSI, ADA diet Hba1c 6.6 mealtime insulin added hyperthyroidism thyroid tests from 09/27 c/w hyperthyroidism repeat test today, 09/28 showing improvement. improvement in mental status. HR controlled. no evidence of thyroid storm at this time Free t3 1.8 pt denies previous history of thyroid disease, previous TSH from 2021 was 0.74 discussed with endocrinology, if labs stable no indication for transfer dysphagia seen by speech, rec NDD1 diet with honey thick liquids continue aspiration precautions tolerating diet leukocytosis ?r/t steroids, trending down acute lactic acidosis likely r/t hypoxia not sepsis encephalopathy vs dementia brain CT negative for acute changes, showing microangiopathy and generalized volume loss as well as chronic appearing lacunar infarcts improved. patient awake and oriented and able to answer questions appropriately hypokalemia resolved with replacement atrial fibrillation continue Eliquis resume home dose of metoprolol CKD3 no recent baseline, creatinine previously around 1.7 follow closely chronic HFpEF no acute exacerbation bnp 58 lasix has been on hold HTN hold norvasc continue metoprolol follow BP closely CAD resume BB, statin dvt ppx - festusquis attending - Dr. Bethea patient requires ongoing inpatient stay for respiratory failure requiring high flow o2 Quality Stroke Does the patient have a stroke diagnosis?: No VTE Prior VTE?: No VTE Risk Level:: Medical - moderate - high VTE Device Contraindication: N/A - Device Ordered VTE Drug Contraindication: N/A - Med Ordered
[2023-10-02 11:29] LABS: Glucose, Whole Blood > 600 mg/dL (60-115)
[2023-10-02 11:32] LABS: TSH reflex Free T4 0.12 uIU/mL (0.32-4.0)
[2023-10-02 11:51] LABS: Glucose, Whole Blood 496 mg/dL (60-115)
--- NOTE | 2023-10-02 12:58 | MHC.SL.SWA ---
Risk of Aspiration Due to: History of Pneumonia Reduced Cognition Weak Voice Dysphasia Diet Status: No change Liquid Consistency and Strategies for Safe Swallow: Liquid Intake Recommendation: Honey Thick Liquid Intake Strategies: Small Sips No Straws Solid Food Consistency: Dietary Recommendations: Pureed (NDD1) Oral Medication Intake: Crushed with Puree Please contact the pharmacy regarding appropriate crushable or liquid drug formulations that are available whenever modified delivery is recommended. Compensatory Strategies and Precautions to be Taken for Safe Swallow: Sitting Upright (90 deg) No Straw Small Bites and Sips Rate of Ingestion Change Oral Check Supervision While Eating and Drinking for Safe Swallow: Total Supervision (1:1) Swallowing Recommended Treatments: Compens. Strategy Educat. Recommendation for Speech: Inpatient Speech Therapy Comment: Pt remains on HFNC. Recommend patient continue w/ PUREED (NDD1) diet and HONEY THICK liquids via teaspoon or controlled cup (NO STRAWS), pills CRUSHED in PUREE. Recommend 1:1 supervision, provide pt w/ assistance as needed with tray set up and throughout meal, provide cues for strategies (upright positioning, small bites/sips, slow pacing, ensure oral cavity is clear before taking more bites/sips, dry swallow between bites/sips), monitor pt closely. Strict aspiration precautions apply. Frequency/Duration: PRN M-F Date Range for Service Req: Timeline to reassess: Senior Electronics Engineer Clinican/Clinical Fellow: No Supervisory Statement: I have reviewed and agree with the student/clinical fellow's documentation: N/A Speech Language Pathologist: Ronda Castañeda M.A., CCC-PEOPLESOFT HR DEVELOPER
[2023-10-02 13:25] LABS: VBG Base Excess 14.3 mmol/L; VBG HCO3 44 mmol/L (22-26); VBG pCO2 79 mmHg; VBG pH 7.35 (7.32-7.43); VBG pO2 41 mmHg
[2023-10-02 13:25] LABS: Venous Blood Gas Refer to POC result
[2023-10-02 13:49] LABS: Anion Gap 12 (12-20); Blood Urea Nitrogen 61 mg/dL (9-16); Carbon Dioxide 40 mmol/L (22-29); Chloride 86 mmol/L (96-108); Sodium 134 mmol/L (135-145)
[2023-10-02 13:50] LABS: Calcium 8.5 mg/dL (8.4-10.2); Creatinine Clr Calc Pharmacy 33.6; Estimated Glomerular Filt Rate 33; Glucose Random 540 mg/dL (60-115)
[2023-10-02 16:05] LABS: Glucose, Whole Blood 377 mg/dL (60-115)
[2023-10-02 18:26] LABS: Glucose, Whole Blood 335 mg/dL (60-115)
[2023-10-02 20:06] LABS: Glucose, Whole Blood 222 mg/dL (60-115)
[2023-10-02] MEDS: Atorvastatin Calcium 80 MG TABLET PO (20:31)
[2023-10-03] VITALS (15 sets, daily range): BP systolic 140–177; BP diastolic 65–80; PULSE 77–95; RESP 16–24; TEMP 36.3–36.9; O2SAT 88–98
[2023-10-03] MEDS: methylPREDNISolone Sod Succ 40 MG/ML VIAL IVPUSH ×3 (00:35→16:58)
[2023-10-03] MEDS: Omeprazole 20 MG CAPSULE.DR PO (06:33)
[2023-10-03 07:09] LABS: Glucose, Whole Blood 243 mg/dL (60-115)
[2023-10-03] MEDS: Albuterol/Iprat 2.5/0.5MG 3 ML AMPUL.NEB INHALE ×4 (07:33→19:38)
[2023-10-03] MEDS: Insulin Glargine,Hum.rec.anlog 100 UNIT/ML 10 ML VIAL 15 UNIT SUBCUT (08:23)
[2023-10-03] MEDS: Folic Acid 1 MG TABLET PO (08:23)
[2023-10-03] MEDS: Metoprolol Tartrate 12.5 MG HALFTAB PO ×2 (08:23→20:25)
[2023-10-03] MEDS: Apixaban 5 MG TABLET PO ×2 (08:23→20:25)
[2023-10-03] MEDS: Insulin Lispro 100 UNIT/ML 3 ML VIAL SUBCUT ×6 (08:23→20:26)
[2023-10-03] MEDS: acetaZOLAMIDE sodium 500 MG VIAL 250 MG IVPUSH (08:40)
[2023-10-03 09:53] LABS: Basophils Percent Auto 0.1 % (0-2); Hematocrit 44.5 % (42.0-52.0); Hemoglobin 13.8 g/dl (14.0-18.0); Imm Gran Abs Auto 0.13 X10*3/uL (0.00-0.03); Imm Gran Pct Auto 0.8 % (0.0-0.4); Lymphocytes Absolute Auto 0.2 X10*3/uL (1.2-4.9); Lymphocytes Percent Auto 1.2 % (20-40); MANUAL DIFF FLAG SCAN; Mean Corpuscular Hemoglobin 26.5 pg (27.0-33.0); Mean Corpuscular Volume 85.4 fL (80.0-98.0); Mean Platelet Volume 12.2 fL (9.4-12.4); Monocytes Absolute Auto 0.4 X10*3/uL (0.1-1.2); Monocytes Percent Auto 2.5 % (2-11); Neutrophils Absolute Auto 14.8 x10*3/uL (2.0-8.3); Neutrophils Percent Auto 95.4 % (45-73); Platelet Count 184 X10*3/uL (160-400); Red Blood Count 5.21 X10*6/uL (4.60-5.80); Red Cell Distribution Width 13.3 % (11.0-16.0); SCAN SMEAR FLAG 1; White Blood Count 15.5 X10*3/uL (4.8-10.8)
[2023-10-03 10:04] LABS: Anion Gap 17 (12-20); Blood Urea Nitrogen 64 mg/dL (9-16); Calcium 9.3 mg/dL (8.4-10.2); Carbon Dioxide 38 mmol/L (22-29); Chloride 88 mmol/L (96-108); Estimated Glomerular Filt Rate 35; Glucose Random 322 mg/dL (60-115); Potassium 4.1 mmol/L (3.3-5.1); Sodium 139 mmol/L (135-145)
[2023-10-03 10:16] LABS: SLIDE REVIEW VERIFIED
[2023-10-03 11:06] LABS: Glucose, Whole Blood 301 mg/dL (60-115)
--- NOTE | 2023-10-03 12:49 | MHC.SLORD ---
Speech Language Pathology Order Status: Checked in with patient and family at lunch meal. Patient had eaten a portion of the purees on tray and had honey thick juices that came with tray. While appetite is decreased patient is tolerating current food textures well with no clinical signs of aspiration during meal. SWIMMING POOL ATTENDANT will continue to follow.
--- NOTE | 2023-10-03 17:06 | P.PNPL_ITS ---
Subjective Subjective Date of Service: 10/03/23 Principal diagnosis: COPD , PNEUMONIA, RESPIRATORY FAILURE Interval history: PULMONARY FOLLOW-UP 73-year-old gentleman with underlying COPD on 2 L, diabetes mellitus, CHF, CAD, hypertension, AFib on Eliquis, cocaine abuse, recent development of confusion versus dementia over the last 2 months was admitted on 09/26/2023 with dyspnea and acute on chronic hypoxic and hypercapnic respiratory failure , probably due to pulmonary aspiration. Initially requiring BiPAP support. He was started on acetazolamide and antibiotics( Levaquin ) for pulmonary aspiration component. He yuliana successfully titrated off BiPAP and kept on O2 . While his acute distress has improved, he continues to require high-flow O2, to come about his hypoxemia. He does not have any ongoing fever or chills., . Denies any chest pain He has had CTA of the chest twice , both times showing no evidence of pulmonary embolism. However he has extensive pulmonary emphysema, and there is a dense consolidation in the left lower lobe. Objective Data Labs 10/03/23 09:44 10/03/23 09:44 Labs: Laboratory Results - last 24 hr 10/02/23 10/02/23 10/03/23 18:23 20:00 07:03 WBC RBC Hgb Hct MCV MCH MCHC RDW Plt Count MPV Immature Gran % (Auto) Neut % (Auto) Lymph % (Auto) [place] % (Auto) Eos % (Auto) Baso % (Auto) Lymph # (Auto) [place] # (Auto) Eos # (Auto) Baso # (Auto) Abs Immat Gran (auto) Absolute Neuts (auto) Absolute Nucleated RBC Nucleated RBC % (auto) Smear Tech's Comments Sodium Potassium Chloride Carbon Dioxide Anion Gap BUN Creatinine Estim Creat Clear Calc Estimated GFR POC Glucose 335 H 222 H 243 H Random Glucose Calcium 10/03/23 10/03/23 09:44 11:00 WBC 15.5 H RBC 5.21 Hgb 13.8 L Hct 44.5 MCV 85.4 MCH 26.5 L MCHC 31.0 RDW 13.3 Plt Count 184 MPV 12.2 Immature Gran % (Auto) 0.8 H Neut % (Auto) 95.4 H Lymph % (Auto) 1.2 L [place] % (Auto) 2.5 Eos % (Auto) 0.0 Baso % (Auto) 0.1 Lymph # (Auto) 0.2 L [place] # (Auto) 0.4 Eos # (Auto) 0.0 Baso # (Auto) 0.0 Abs Immat Gran (auto) 0.13 H Absolute Neuts (auto) 14.8 H Absolute Nucleated RBC 0.000 Nucleated RBC % (auto) 0.0 Smear Tech's Comments VERIFIED Sodium 139 Potassium 4.1 Chloride 88 L Carbon Dioxide 38 H Anion Gap 17 BUN 64 H Creatinine 1.91 H Estim Creat Clear Calc 35.0 Estimated GFR 35 POC Glucose 301 H Random Glucose 322 H Calcium 9.3 D Microbiology Microbiology Results: Microbiology 09/25/23 18:12 Blood - Venous Blood Culture - Final No growth after 5 days. 09/25/23 17:21 Blood - Venous Blood Culture - Final No growth after 5 days. Physical Exam 2 Vital Signs: Vital Signs: Last Vital Signs Temp 98.5 F 10/03/23 15:13 Pulse 83 10/03/23 15:19 Resp 20 10/03/23 15:20 BP 140/70 H 10/03/23 15:13 Pulse Ox 93 10/03/23 15:13 O2 Del Method High Flow Nasal C annula 10/03/23 15:13 O2 Flow Rate 45 10/03/23 15:13 FiO2 75 10/03/23 15:13 Oxygen Flow Rate 15 09/25/23 16:58 BMI result Body Mass Index 23.8 Patient is alert and conversing well. . Oropharynx shows no acute abnormality Neck no lymphadenopathy trachea midline Chest symmetrical percussion note is resonant, except for dullness over the left lower lobe area Breath sounds are distant, and almost completely absent over the left. lower lobe Cardiovascular: not remarkable Procedures Date of Service Date of Service: 10/03/23 Assessment and Plan Assessment and plan (1) COPD (chronic obstructive pulmonary disease): Status: Acute (2) Chronic respiratory failure with hypoxia: Status: Acute (3) Pneumonia: Status: Acute (4) Acute respiratory failure with hypoxia and hypercapnia: Status: Acute Plan This 73 years old gentleman has advanced chronic obstructive pulmonary disease. Currently he has acute decompensation most likely secondary to pulmonary aspiration , and dense consolidation of the left lower lobe. This consolidation may be result of pulmonary aspiration, there seems to be endobronchial obstruction of the left lower lobe bronchus. Recc . Continue O2 by high-flow O2 to keep O2 sat above 90% try to wean down as tolerated DuoNeb updrafts Q 4-6 hours while awake. IV Solu-Medrol 40 mg b.i.d.. Continue IV Levaquin. I think patient should have bronchoscopic examination and bronchial lavage urge of the left lower lobe bronchus. I have discussed the case with Dr. Groves , who has seen him initially in the critical care unit. He will re-evaluate him for bronchoscopic examination . Have low Time Spent With Patient Time: Total time managing care of this patient today ____ minutes. Progress Note: Quality Stroke Does the patient have a stroke diagnosis?: No
--- NOTE | 2023-10-03 17:34 | P.PNIM_ITS ---
Subjective Subjective Date of Service: 10/03/23 Interval History: seen and examined this morning follow up for respiratory failure remains on high flow oxygen denies sob, awake, alert Review of Systems Review of Systems: Yes all other systems are reviewed and are negative Constitutional Constitutional: Denies chills and Denies fever(s) Cardiovascular Cardiovascular: Denies chest pain, Denies palpitations and Denies dyspnea Respiratory Respiratory: Denies cough and Denies dyspnea Endocrine Endocrine: Denies palpitations Physical Exam 2 Vital Signs: Vital Signs: Last Vital Signs Temp 98.5 F 10/03/23 15:13 Pulse 83 10/03/23 15:19 Resp 20 10/03/23 15:20 BP 140/70 H 10/03/23 15:13 Pulse Ox 93 10/03/23 15:13 O2 Del Method High Flow Nasal C annula 10/03/23 15:13 O2 Flow Rate 45 10/03/23 15:13 FiO2 75 10/03/23 15:13 Oxygen Flow Rate 15 09/25/23 16:58 BMI result Body Mass Index 23.8 Const: Other: resting in bed comfortably; in no acute distress General: comfortable, no acute distress, alert and awake Nutritional Appearance: average body habitus Orientation/consciousness: oriented to person and patient oriented x3 Resp: Other: diminished Effort & Inspection: normal respiratory effort, able to speak in complete sentences, no respiratory distress, not tachypneic and no use of accessory muscles Cardio: Rate: regular rate GI: Inspection: No distended Palpation (GI): Soft to palpation and nontender Neuro: Other: grossly nonfocal General: oriented to person, patient oriented x3, moves all extremities and CN's II-XI intact bilaterally Extrem: General: Yes no pedal edema Objective Data Active Medications Acetazolamide (Acetazolamide Sodium 500 Mg Vial) 250 mg IVPUSH BID [facility] Last Admin: 10/03/23 08:40 Dose: 250 mg Documented By: MISTY Albuterol/Ipratropium (Albuterol/Iprat 2.5/0.5mg 3 Ml Ampul.Neb) 3 ml INHALE RQ4H WHILE AWAKE [facility] Last Admin: 10/03/23 15:17 Dose: 3 ml Documented By: MARY KAY Apixaban (Apixaban 5 Mg Tablet) 5 mg PO BID [facility] Last Admin: 10/03/23 08:23 Dose: 5 mg Documented By: MISTY Atorvastatin Calcium (Atorvastatin Calcium 80 Mg Tablet) 80 mg PO BEDTIME [facility] Last Admin: 10/02/23 20:31 Dose: 80 mg Documented By: JOHN Dextrose (Dextrose 50 % 25 Gm/50 Ml Syringe) 25 gm IVPUSH Q30M PRN PRN Reason: BG < 70 Folic Acid (Folic Acid 1 Mg Tablet) 1 mg PO DAILY [facility] Last Admin: 10/03/23 08:23 Dose: 1 mg Documented By: MISTY Insulin Glargine (Insulin Glargine,Hum.Rec.Anlog 100 Unit/Ml 10 Ml Vial) 15 unit SUBCUT DAILY [facility] Last Admin: 10/03/23 08:23 Dose: 15 unit Documented By: MISTY Insulin Human Lispro (Insulin Lispro 100 Unit/Ml 3 Ml Vial) 0 unit SUBCUT QIDACHS [facility]; Protocol Last Admin: 10/03/23 13:08 Dose: 10 unit Documented By: MISTY Insulin Human Lispro (Insulin Lispro 100 Unit/Ml 3 Ml Vial) 5 unit SUBCUT QIDACHS [facility] Last Admin: 10/03/23 13:08 Dose: 5 unit Documented By: MISTY Levofloxacin (Levofloxacin 750 Mg Tablet) 750 mg PO Q48H [facility] Last Admin: 10/02/23 08:06 Dose: 750 mg Documented By: RICH Methylprednisolone Sodium Succinate (Methylprednisolone Sod Succ 40 Mg/Ml Vial) 40 mg IVPUSH Q8H [facility] Last Admin: 10/03/23 16:58 Dose: 40 mg Documented By: MISTY Metoprolol Tartrate (Metoprolol Tartrate 12.5 Mg Halftab) 12.5 mg PO BID [facility]; Protocol Last Admin: 10/03/23 08:23 Dose: 12.5 mg Documented By: MISTY Omeprazole (Omeprazole 20 Mg Capsule.) 20 mg PO DAILY@0630 [facility] Last Admin: 10/03/23 06:33 Dose: 20 mg Documented By: JOHN Labs 10/03/23 09:44 10/03/23 09:44 Labs: Laboratory Results - last 24 hr 10/02/23 10/02/23 10/03/23 18:23 20:00 07:03 MCV MCH MCHC RDW Plt Count MPV Immature Gran % (Auto) Neut % (Auto) Lymph % (Auto) Leake % (Auto) Eos % (Auto) Baso % (Auto) Lymph # (Auto) Leake # (Auto) Eos # (Auto) Baso # (Auto) Abs Immat Gran (auto) Absolute Neuts (auto) Absolute Nucleated RBC Nucleated RBC % (auto) Smear Tech's Comments Anion Gap Estim Creat Clear Calc Estimated GFR POC Glucose 335 H 222 H 243 H Random Glucose Calcium 10/03/23 10/03/23 09:44 11:00 MCV 85.4 MCH 26.5 L MCHC 31.0 RDW 13.3 Plt Count 184 MPV 12.2 Immature Gran % (Auto) 0.8 H Neut % (Auto) 95.4 H Lymph % (Auto) 1.2 L Leake % (Auto) 2.5 Eos % (Auto) 0.0 Baso % (Auto) 0.1 Lymph # (Auto) 0.2 L Leake # (Auto) 0.4 Eos # (Auto) 0.0 Baso # (Auto) 0.0 Abs Immat Gran (auto) 0.13 H Absolute Neuts (auto) 14.8 H Absolute Nucleated RBC 0.000 Nucleated RBC % (auto) 0.0 Smear Tech's Comments VERIFIED Anion Gap 17 Estim Creat Clear Calc 35.0 Estimated GFR 35 POC Glucose 301 H Random Glucose 322 H Calcium 9.3 D Assessment and Plan (1) Acute respiratory failure with hypoxia and hypercapnia: Status: Acute Plan This is a 73 year old male with history of chronic respiratory failure on 2L of supplemental oxygen, COPD, atrial fibrillation on Eliquis, DM, HFpEF, CAD, h/o cocaine use who presented to the ED with shortness of breath found to have hypoxia and pneumonia with concern for aspiration and requiring bipap and ICU level of care, admitted to the ICU on 09/25 and downgraded to the medical floor the following day 09/26. Also noted to have confusion ongoing for unclear period of time, at least several weeks. Acute on chronic respiratory failure with hypoxia and hypercarbia r/t COPD exacerbation, PNA and aspiration on baseline 2L at home continue IV solu-medrol, will start to wean, continue scheduled breathing treatments continue levaquin RPP negative pulmonary following - re-evaluated 10/02 - considering bronchosopy next week still requiring high flow oxygen, goal o2 >90% acute Metabolic acidosis bicarb improving d/c diamox and monitor response DM2 with hyperglycemia r/t steroids hold glipizide, trulicity POCs, SSI, ADA diet Hba1c 6.6 started on lantus and mealtime insulin added monitor POCs as steroids are weaned hyperthyroidism thyroid tests from 09/27 c/w hyperthyroidism repeat test today, 09/28 showing improvement. improvement in mental status. HR controlled. no evidence of thyroid storm at this time Free t3 1.8 pt denies previous history of thyroid disease, previous TSH from 2021 was 0.74 discussed with endocrinology, if labs stable no indication for transfer dysphagia seen by speech, rec NDD1 diet with honey thick liquids continue aspiration precautions tolerating diet leukocytosis likely r/t steroids acute lactic acidosis likely r/t hypoxia not sepsis encephalopathy vs dementia brain CT negative for acute changes, showing microangiopathy and generalized volume loss as well as chronic appearing lacunar infarcts improved. patient awake and oriented and able to answer questions appropriately. seems to be at baseline hypokalemia resolved with replacement atrial fibrillation continue Eliquis resume home dose of metoprolol CKD3 no recent baseline, creatinine previously around 1.7. remains near baseline follow closely chronic HFpEF no acute exacerbation bnp 58 lasix has been on hold HTN hold norvasc continue metoprolol follow BP closely CAD resume BB, statin dvt ppx - marianna attending - Dr. Bethea patient requires ongoing inpatient stay for respiratory failure requiring high flow o2 Quality Stroke Does the patient have a stroke diagnosis?: No VTE Prior VTE?: No VTE Risk Level:: Medical - moderate - high VTE Device Contraindication: N/A - Device Ordered VTE Drug Contraindication: N/A - Med Ordered
[2023-10-03 19:59] LABS: Glucose, Whole Blood 144 mg/dL (60-115)
[2023-10-03 20:17] LABS: Glucose, Whole Blood 243 mg/dL (60-115)
[2023-10-03] MEDS: Atorvastatin Calcium 80 MG TABLET PO (20:25)
--- NOTE | 2023-10-03 23:40 | PC.NURSE ---
Red and black area with small open area noted to coccyx on 2000 assessment. Triad applied, airloss bed, repo q2. Wound consult placed.
[2023-10-04] VITALS (14 sets, daily range): BP systolic 120–154; BP diastolic 58–76; PULSE 67–95; RESP 18–20; TEMP 36.2–36.9; O2SAT 87–96
[2023-10-04] MEDS: Omeprazole 20 MG CAPSULE.DR PO (05:22)
[2023-10-04] MEDS: methylPREDNISolone Sod Succ 40 MG/ML VIAL IVPUSH ×2 (05:22→16:59)
--- NOTE | 2023-10-04 07:05 | PC.NURSE ---
Olmos removed yesterday. Bladder scan at 0000 for 575ml. 1st straight cath done with 400ml output at 0015. Repeat bladder scan done at 0600 measuring 300ml. Oncoming RN notified of results and possible need to straight cath a second time.
[2023-10-04 07:14] LABS: Glucose, Whole Blood 166 mg/dL (60-115)
[2023-10-04 07:42] LABS: Anion Gap 15 (12-20); Blood Urea Nitrogen 65 mg/dL (9-16); Calcium 8.8 mg/dL (8.4-10.2); Carbon Dioxide 38 mmol/L (22-29); Chloride 91 mmol/L (96-108); Creatinine Clr Calc Pharmacy 42.8; Estimated Glomerular Filt Rate 44; Glucose Random 146 mg/dL (60-115); Potassium 3.4 mmol/L (3.3-5.1); Sodium 141 mmol/L (135-145)
[2023-10-04] MEDS: Albuterol/Iprat 2.5/0.5MG 3 ML AMPUL.NEB INHALE ×4 (08:14→19:52)
[2023-10-04] MEDS: Insulin Lispro 100 UNIT/ML 3 ML VIAL SUBCUT ×6 (08:24→16:59)
[2023-10-04] MEDS: Insulin Glargine,Hum.rec.anlog 100 UNIT/ML 10 ML VIAL 15 UNIT SUBCUT (08:24)
[2023-10-04] MEDS: Folic Acid 1 MG TABLET PO (08:27)
[2023-10-04] MEDS: Apixaban 5 MG TABLET PO ×2 (08:27→20:16)
[2023-10-04] MEDS: Metoprolol Tartrate 12.5 MG HALFTAB PO ×2 (08:27→20:16)
[2023-10-04] MEDS: levoFLOXacin 750 MG TABLET PO (08:27)
--- NOTE | 2023-10-04 10:21 | MHC.CM.PN ---
Per ROUNDS discussion, Patient is still on high flow O2 and is not yet medically cleared for dc. Patient may benefit from a PT eval to assist with disposition. CM will follow.
[2023-10-04 11:04] LABS: Glucose, Whole Blood 246 mg/dL (60-115)
--- NOTE | 2023-10-04 11:18 | P.PNIM_ITS ---
Subjective Subjective Date of Service: 10/04/23 Interval History: Remains hypoxic on high, but comfortable Physical Exam 2 Vital Signs: Vital Signs: Last Vital Signs Temp 97.8 F 10/04/23 11:02 Pulse 82 10/04/23 11:02 Resp 20 10/04/23 11:02 BP 128/73 10/04/23 11:02 Pulse Ox 90 L 10/04/23 11:02 O2 Del Method High Flow Nasal C annula 10/04/23 11:02 O2 Flow Rate 45 10/04/23 11:02 FiO2 64 10/04/23 11:02 Oxygen Flow Rate 15 09/25/23 16:58 BMI result Body Mass Index 23.8 Const: Other: resting in bed comfortably; in no acute distress General: comfortable, no acute distress, alert and awake Nutritional Appearance: average body habitus Orientation/consciousness: oriented to person and patient oriented x3 Resp: Other: diminished Effort & Inspection: normal respiratory effort, able to speak in complete sentences, no respiratory distress, not tachypneic and no use of accessory muscles Cardio: Rate: regular rate GI: Inspection: No distended Palpation (GI): Soft to palpation and nontender Neuro: Other: grossly nonfocal General: oriented to person, patient oriented x3, moves all extremities and CN's II-XI intact bilaterally Extrem: General: Yes no pedal edema Objective Data Active Medications Albuterol/Ipratropium (Albuterol/Iprat 2.5/0.5mg 3 Ml Ampul.Neb) 3 ml INHALE RQ4H WHILE AWAKE [facility] Last Admin: 10/04/23 08:14 Dose: 3 ml Documented By: KIMMY Apixaban (Apixaban 5 Mg Tablet) 5 mg PO BID [facility] Last Admin: 10/04/23 08:27 Dose: 5 mg Documented By: MAUREEN Atorvastatin Calcium (Atorvastatin Calcium 80 Mg Tablet) 80 mg PO BEDTIME [facility] Last Admin: 10/03/23 20:25 Dose: 80 mg Documented By: GRACE Dextrose (Dextrose 50 % 25 Gm/50 Ml Syringe) 25 gm IVPUSH Q30M PRN PRN Reason: BG < 70 Folic Acid (Folic Acid 1 Mg Tablet) 1 mg PO DAILY [facility] Last Admin: 10/04/23 08:27 Dose: 1 mg Documented By: MAUREEN Insulin Glargine (Insulin Glargine,Hum.Rec.Anlog 100 Unit/Ml 10 Ml Vial) 15 unit SUBCUT DAILY [facility] Last Admin: 10/04/23 08:24 Dose: 15 unit Documented By: MAUREEN Insulin Human Lispro (Insulin Lispro 100 Unit/Ml 3 Ml Vial) 0 unit SUBCUT QIDACHS [facility]; Protocol Last Admin: 10/04/23 08:24 Dose: 2 unit Documented By: MAUREEN Insulin Human Lispro (Insulin Lispro 100 Unit/Ml 3 Ml Vial) 5 unit SUBCUT QIDACHS [facility] Last Admin: 10/04/23 08:26 Dose: 5 unit Documented By: MAUREEN Levofloxacin (Levofloxacin 750 Mg Tablet) 750 mg PO Q48H [facility] Last Admin: 10/04/23 08:27 Dose: 750 mg Documented By: MAUREEN Methylprednisolone Sodium Succinate (Methylprednisolone Sod Succ 40 Mg/Ml Vial) 40 mg IVPUSH Q12H [facility] Last Admin: 10/04/23 05:22 Dose: 40 mg Documented By: GRACE Metoprolol Tartrate (Metoprolol Tartrate 12.5 Mg Halftab) 12.5 mg PO BID [facility]; Protocol Last Admin: 10/04/23 08:27 Dose: 12.5 mg Documented By: MAUREEN Omeprazole (Omeprazole 20 Mg Capsule.) 20 mg PO DAILY@0630 [facility] Last Admin: 10/04/23 05:22 Dose: 20 mg Documented By: GRACE Labs 10/03/23 09:44 10/04/23 Unknown Labs: Laboratory Results - last 24 hr 10/03/23 10/03/23 10/04/23 16:48 20:01 06:34 Hold Purple Top SEE NOTE Anion Gap Estim Creat Clear Calc Estimated GFR POC Glucose 144 H 243 H Random Glucose Calcium 10/04/23 10/04/23 10/04/23 07:01 10:53 Unknown Hold Purple Top Anion Gap 15 Estim Creat Clear Calc 42.8 Estimated GFR 44 POC Glucose 166 H 246 H Random Glucose 146 H Calcium 8.8 Assessment and Plan (1) Acute respiratory failure with hypoxia and hypercapnia: Status: Acute Plan This is a 73 year old male with history of chronic respiratory failure on 2L of supplemental oxygen, COPD, atrial fibrillation on Eliquis, DM, HFpEF, CAD, h/o cocaine use who presented to the ED with shortness of breath found to have hypoxia and pneumonia with concern for aspiration and requiring bipap and ICU level of care, admitted to the ICU on 09/25 and downgraded to the medical floor the following day 09/26. Also noted to have confusion ongoing for unclear period of time, at least several weeks. Acute on chronic respiratory failure with hypoxia and hypercarbia, remains very hypoxic on high flow r/t COPD exacerbation, PNA and aspiration on baseline 2L at home continue IV solu-medrol, will start to wean, continue scheduled breathing treatments continue levaquin RPP negative pulmonary following - re-evaluated 10/02 - considering bronchosopy next week still requiring high flow oxygen, goal o2 >90% acute Metabolic acidosis bicarb improving was on diamox but stopped DM2 with hyperglycemia r/t steroids holding glipizide, trulicity POCs, SSI, ADA diet Hba1c 6.6 On lantus and mealtime insulin added monitor POCs as steroids are weaned hyperthyroidism thyroid tests from 09/27 c/w hyperthyroidism repeat test today, 09/28 showing improvement. improvement in mental status. HR controlled. no evidence of thyroid storm at this time Free t3 1.8 pt denies previous history of thyroid disease, previous TSH from 2021 was 0.74 discussed with endocrinology, if labs stable no indication for transfer dysphagia seen by speech, rec NDD1 diet with honey thick liquids continue aspiration precautions tolerating diet leukocytosis likely r/t steroids acute lactic acidosis likely r/t hypoxia not sepsis encephalopathy vs dementia brain CT negative for acute changes, showing microangiopathy and generalized volume loss as well as chronic appearing lacunar infarcts improved. patient awake and oriented and able to answer questions appropriately. seems to be at baseline hypokalemia resolved with replacement atrial fibrillation continue Eliquis resume home dose of metoprolol CKD3 no recent baseline, creatinine previously around 1.7. remains near baseline follow closely chronic HFpEF no acute exacerbation bnp 58 lasix has been on hold HTN hold norvasc continue metoprolol follow BP closely CAD resume BB, statin dvt ppx - eliquis attending - Dr. Bethea patient requires ongoing inpatient stay for persistent respiratory failure requiring high flow o2 and difficult to wean Quality Stroke Does the patient have a stroke diagnosis?: No VTE Prior VTE?: No VTE Risk Level:: Medical - moderate - high VTE Device Contraindication: N/A - Device Ordered VTE Drug Contraindication: N/A - Med Ordered
--- NOTE | 2023-10-04 12:50 | MHC.SL.SWA ---
Speech Pathologist Impression: Risk of aspiration, oropharyngeal dysphagia Risk of Aspiration Due to: History of Pneumonia Reduced Cognition Weak Voice Dysphasia Diet Status: Recommend patient continue w/ PUREED (NDD1) diet and HONEY THICK liquids via teaspoon or cup (NO STRAWS), pills CRUSHED in PUREE. Recommend 1:1 supervision, provide pt w/ assistance as needed with tray set up and throughout meal, provide cues for strategies (upright positioning, small bites/sips, slow pacing, ensure oral cavity is clear before taking more bites/sips, dry swallow between bites/sips), monitor pt closely. Aspiration precautions apply. Liquid Consistency and Strategies for Safe Swallow: Liquid Intake Recommendation: Honey Thick Liquid Intake Strategies: Small Sips No Straws Solid Food Consistency: Dietary Recommendations: Pureed (NDD1) Oral Medication Intake: Crushed with Puree Please contact the pharmacy regarding appropriate crushable or liquid drug formulations that are available whenever modified delivery is recommended. Compensatory Strategies and Precautions to be Taken for Safe Swallow: Sitting Upright (90 deg) No Straw Small Bites and Sips Rate of Ingestion Change Oral Check Supervision While Eating and Drinking for Safe Swallow: Total Supervision (1:1) Swallowing Recommended Treatments: Compens. Strategy Educat. Recommendation for Speech: Inpatient Speech Therapy Frequency/Duration: PRN M-F Date Range for Service Req: Timeline to reassess: Wrecking Crane Engine Operator Clinican/Clinical Fellow: No Supervisory Statement: I have reviewed and agree with the student/clinical fellow's documentation: N/A Speech Language Pathologist: Ashtyn Neil M.A., CCC-DIRECTOR IMAGING
[2023-10-04 16:15] LABS: Glucose, Whole Blood 250 mg/dL (60-115)
--- NOTE | 2023-10-04 16:47 | PC.NURSE ---
Bladder scan of patient =[id number] has not voided in 24 hours. md notified
--- NOTE | 2023-10-04 19:01 | PC.NURSE ---
Patient failed 24 hour voiding trial , no urine out put, bladder scan q8 over 400c each time, straight cath out put 350+ x3 in 24 hrsd. discussed and cleared with Md Vinson, placed Olmos @[id number]
[2023-10-04] MEDS: Atorvastatin Calcium 80 MG TABLET PO (20:16)
[2023-10-04 20:29] LABS: Glucose, Whole Blood 120 mg/dL (60-115)
[2023-10-05] VITALS (12 sets, daily range): BP systolic 117–158; BP diastolic 63–77; PULSE 73–99; RESP 18–116; TEMP 36.1–36.7; O2SAT 90–97
[2023-10-05] MEDS: methylPREDNISolone Sod Succ 40 MG/ML VIAL IVPUSH ×2 (06:44→17:06)
[2023-10-05] MEDS: Omeprazole 20 MG CAPSULE.DR PO (06:44)
[2023-10-05] MEDS: Albuterol/Iprat 2.5/0.5MG 3 ML AMPUL.NEB INHALE ×4 (07:41→18:40)
[2023-10-05 07:43] LABS: Glucose, Whole Blood 210 mg/dL (60-115)
[2023-10-05] MEDS: Insulin Lispro 100 UNIT/ML 3 ML VIAL SUBCUT ×8 (08:13→20:29)
--- NOTE | 2023-10-05 08:13 | PC.NURSE ---
Pt alert and cooperative, VS as noted with pt O2 dipping to low 80's on 8L oxymiser. Pt roused from sleep and encouraged to breath via nose. Pt demonstrated no distress, no sob and denied difficulty breathing or increased wob. Levels came up while awake and alert but continued to dip when pt sleeping. Pt occasionally noted to be mouth breathing, occasionally shallow breathing. oxymisser titrated up to 15L the RT placed back on high flow n/c with resolution of symptoms. O2 then in low 90's and pt able to sleep. Dr. Palmer made aware this am.
[2023-10-05] MEDS: Insulin Glargine,Hum.rec.anlog 100 UNIT/ML 10 ML VIAL 15 UNIT SUBCUT (08:15)
[2023-10-05] MEDS: Metoprolol Tartrate 12.5 MG HALFTAB PO ×2 (08:15→20:28)
[2023-10-05] MEDS: Folic Acid 1 MG TABLET PO (08:16)
[2023-10-05] MEDS: Apixaban 5 MG TABLET PO ×2 (08:16→20:29)
--- NOTE | 2023-10-05 10:04 | P.PNIM_ITS ---
Subjective Subjective Date of Service: 10/05/23 Interval History: Remains hypoxic on high, he was briefly weaned to oxymizer yesterday but ultimately went back on high flow Physical Exam 2 Vital Signs: Vital Signs: Last Vital Signs Temp 97.1 F 10/05/23 07:28 Pulse 87 10/05/23 07:43 Resp 22 H 10/05/23 07:43 BP 138/67 10/05/23 07:28 Pulse Ox 93 10/05/23 07:28 O2 Del Method High Flow Nasal C annula 10/05/23 07:28 O2 Flow Rate 50 10/05/23 07:28 FiO2 76 10/05/23 07:28 Oxygen Flow Rate 15 09/25/23 16:58 BMI result Body Mass Index 23.8 Const: Other: resting in bed comfortably; in no acute distress General: comfortable, no acute distress, alert and awake Nutritional Appearance: average body habitus Orientation/consciousness: oriented to person and patient oriented x3 Resp: Other: diminished Effort & Inspection: normal respiratory effort, able to speak in complete sentences, no respiratory distress, not tachypneic and no use of accessory muscles Cardio: Rate: regular rate GI: Inspection: No distended Palpation (GI): Soft to palpation and nontender Neuro: Other: grossly nonfocal General: oriented to person, patient oriented x3, moves all extremities and CN's II-XI intact bilaterally Extrem: General: Yes no pedal edema Objective Data Active Medications Albuterol/Ipratropium (Albuterol/Iprat 2.5/0.5mg 3 Ml Ampul.Neb) 3 ml INHALE RQ4H WHILE AWAKE [facility] Last Admin: 10/05/23 07:41 Dose: 3 ml Documented By: MARY KAY Apixaban (Apixaban 5 Mg Tablet) 5 mg PO BID [facility] Last Admin: 10/05/23 08:16 Dose: 5 mg Documented By: MARIA ELENA Atorvastatin Calcium (Atorvastatin Calcium 80 Mg Tablet) 80 mg PO BEDTIME [facility] Last Admin: 10/04/23 20:16 Dose: 80 mg Documented By: ABIDA Dextrose (Dextrose 50 % 25 Gm/50 Ml Syringe) 25 gm IVPUSH Q30M PRN PRN Reason: BG < 70 Folic Acid (Folic Acid 1 Mg Tablet) 1 mg PO DAILY [facility] Last Admin: 10/05/23 08:16 Dose: 1 mg Documented By: MARIA ELENA Insulin Glargine (Insulin Glargine,Hum.Rec.Anlog 100 Unit/Ml 10 Ml Vial) 15 unit SUBCUT DAILY [facility] Last Admin: 10/05/23 08:15 Dose: 15 unit Documented By: MARIA ELENA Insulin Human Lispro (Insulin Lispro 100 Unit/Ml 3 Ml Vial) 0 unit SUBCUT QIDACHS [facility]; Protocol Last Admin: 10/05/23 08:13 Dose: 6 unit Documented By: MARIA ELENA Insulin Human Lispro (Insulin Lispro 100 Unit/Ml 3 Ml Vial) 5 unit SUBCUT QIDACHS [facility] Last Admin: 10/05/23 08:14 Dose: 5 unit Documented By: MARIA ELENA Levofloxacin (Levofloxacin 750 Mg Tablet) 750 mg PO Q48H [facility] Last Admin: 10/04/23 08:27 Dose: 750 mg Documented By: MAUREEN Methylprednisolone Sodium Succinate (Methylprednisolone Sod Succ 40 Mg/Ml Vial) 40 mg IVPUSH Q12H [facility] Last Admin: 10/05/23 06:44 Dose: 40 mg Documented By: ALBERT Metoprolol Tartrate (Metoprolol Tartrate 12.5 Mg Halftab) 12.5 mg PO BID [facility]; Protocol Last Admin: 10/05/23 08:15 Dose: 12.5 mg Documented By: MARIA ELENA Omeprazole (Omeprazole 20 Mg Capsule.Dr) 20 mg PO DAILY@0630 [facility] Last Admin: 10/05/23 06:44 Dose: 20 mg Documented By: ALBERT Labs 10/03/23 09:44 10/04/23 Unknown Labs: Laboratory Results - last 24 hr 10/04/23 10/04/23 10/04/23 10:53 16:10 20:12 POC Glucose 246 H 250 H 120 H 10/05/23 07:38 POC Glucose 210 H Assessment and Plan (1) Acute respiratory failure with hypoxia and hypercapnia: Status: Acute Plan 73 year old male with history of chronic respiratory failure on 2L of supplemental oxygen, COPD, atrial fibrillation on Eliquis, DM, HFpEF, CAD, h/o cocaine use who presented to the ED with shortness of breath found to have hypoxia and pneumonia with concern for aspiration and requiring bipap and ICU level of care, admitted to the ICU on 09/25 and downgraded to the medical floor the following day 09/26. Also noted to have confusion ongoing for unclear period of time, at least several weeks. Acute on chronic respiratory failure with hypoxia and hypercarbia, remains very hypoxic on high flow r/t COPD exacerbation, PNA and aspiration on baseline 2L at home continue IV solu-medrol, will start to wean, continue scheduled breathing treatments continue levaquin RPP negative pulmonary following - re-evaluated 10/02 - considering bronchosopy next week still requiring high flow oxygen, goal o2 >90% wean as tolerated acute Metabolic acidosis bicarb improving was on diamox but stopped DM2 with hyperglycemia r/t steroids holding glipizide, trulicity POCs, SSI, ADA diet Hba1c 6.6 On lantus and mealtime insulin added monitor POCs as steroids are weaned hyperthyroidism thyroid tests from 09/27 c/w hyperthyroidism repeat test today, 09/28 showing improvement. improvement in mental status. HR controlled. no evidence of thyroid storm at this time Free t3 1.8 pt denies previous history of thyroid disease, previous TSH from 2021 was 0.74 discussed with endocrinology, if labs stable no indication for transfer dysphagia seen by speech, rec NDD1 diet with honey thick liquids continue aspiration precautions tolerating diet leukocytosis likely r/t steroids acute lactic acidosis likely r/t hypoxia not sepsis encephalopathy vs dementia brain CT negative for acute changes, showing microangiopathy and generalized volume loss as well as chronic appearing lacunar infarcts improved. patient awake and oriented and able to answer questions appropriately. seems to be at baseline hypokalemia resolved with replacement atrial fibrillation continue Eliquis resume home dose of metoprolol CKD3 no recent baseline, creatinine previously around 1.7. remains near baseline follow closely chronic HFpEF no acute exacerbation bnp 58 lasix has been on hold HTN hold norvasc continue metoprolol follow BP closely CAD resume BB, statin dvt ppx - marianna attending - Dr. Bethea patient requires ongoing inpatient stay for persistent respiratory failure requiring high flow o2 and difficult to wean Quality Stroke Does the patient have a stroke diagnosis?: No VTE Prior VTE?: No VTE Risk Level:: Medical - moderate - high VTE Device Contraindication: N/A - Device Ordered VTE Drug Contraindication: N/A - Med Ordered
[2023-10-05 11:19] LABS: Glucose, Whole Blood 230 mg/dL (60-115)
[2023-10-05 16:06] LABS: Glucose, Whole Blood 235 mg/dL (60-115)
[2023-10-05] MEDS: Magnesium Sulfate/D5W 1 GM/100 ML PIGGYBACK IV (18:32)
[2023-10-05] MEDS: Potassium Chloride ER 20 MEQ TAB.ER.PRT PO (18:32)
[2023-10-05 18:42] LABS: Anion Gap 17 (12-20); Blood Urea Nitrogen 60 mg/dL (9-16); Calcium 9.1 mg/dL (8.4-10.2); Carbon Dioxide 36 mmol/L (22-29); Chloride 90 mmol/L (96-108); Creatinine Clr Calc Pharmacy 41.8; Estimated Glomerular Filt Rate 42; Glucose Random 295 mg/dL (60-115); Magnesium 2.2 mg/dL (1.6-2.6); Potassium 3.9 mmol/L (3.3-5.1); Sodium 139 mmol/L (135-145)
[2023-10-05 20:02] LABS: Glucose, Whole Blood 216 mg/dL (60-115)
[2023-10-05] MEDS: Atorvastatin Calcium 80 MG TABLET PO (20:29)
[2023-10-06] VITALS (10 sets, daily range): BP systolic 105–161; BP diastolic 50–80; PULSE 73–99; RESP 16–19; TEMP 36.1–36.7; O2SAT 90–99
[2023-10-06] MEDS: methylPREDNISolone Sod Succ 40 MG/ML VIAL IVPUSH ×2 (05:23→17:38)
[2023-10-06] MEDS: Omeprazole 20 MG CAPSULE.DR PO (05:23)
[2023-10-06] MEDS: Albuterol/Iprat 2.5/0.5MG 3 ML AMPUL.NEB INHALE ×4 (07:20→19:23)
[2023-10-06 08:00] LABS: Glucose, Whole Blood 134 mg/dL (60-115)
[2023-10-06] MEDS: Metoprolol Tartrate 12.5 MG HALFTAB PO ×2 (09:13→20:41)
[2023-10-06] MEDS: Insulin Glargine,Hum.rec.anlog 100 UNIT/ML 10 ML VIAL 15 UNIT SUBCUT (09:14)
[2023-10-06] MEDS: levoFLOXacin 750 MG TABLET PO (09:14)
[2023-10-06] MEDS: Apixaban 5 MG TABLET PO ×2 (09:14→20:41)
[2023-10-06] MEDS: Folic Acid 1 MG TABLET PO (09:14)
--- NOTE | 2023-10-06 10:24 | HO.PM.IMPN ---
Subjective Subjective Date of Service: 10/06/23 Interval History: Made progress overnight, he has been transitioned from high flow to oximizer with favorable O2 sat Physical Exam Vital Signs: Vital Signs: Last Vital Signs Temp 97.6 F 10/06/23 07:08 Pulse 74 10/06/23 07:22 Resp 16 10/06/23 07:22 BP 120/80 10/06/23 07:08 Pulse Ox 94 10/06/23 07:08 O2 Del Method Oxymask 10/06/23 07:08 O2 Flow Rate 10 10/06/23 07:08 FiO2 65 10/05/23 11:24 Oxygen Flow Rate 15 09/25/23 16:58 BMI result Body Mass Index 23.8 Const: Other: General: AO X 3, no acute distress Resp: CTA bilateral CVS: S1,S2,RRR GI: +BS, NT, no distention Skin: No rash Neuro: motor grossly intact Psych: appropriate affect Objective Data Active Medications Albuterol/Ipratropium (Albuterol/Iprat 2.5/0.5mg 3 Ml Ampul.Neb) 3 ml INHALE RQID [facility] Last Admin: 10/06/23 07:20 Dose: 3 ml Documented By: MARY KAY Apixaban (Apixaban 5 Mg Tablet) 5 mg PO BID [facility] Last Admin: 10/06/23 09:14 Dose: 5 mg Documented By: MANOHAR Atorvastatin Calcium (Atorvastatin Calcium 80 Mg Tablet) 80 mg PO BEDTIME [facility] Last Admin: 10/05/23 20:29 Dose: 80 mg Documented By: ROBERT Dextrose (Dextrose 50 % 25 Gm/50 Ml Syringe) 25 gm IVPUSH Q30M PRN PRN Reason: BG < 70 Folic Acid (Folic Acid 1 Mg Tablet) 1 mg PO DAILY [facility] Last Admin: 10/06/23 09:14 Dose: 1 mg Documented By: MANOHAR Insulin Glargine (Insulin Glargine,Hum.Rec.Anlog 100 Unit/Ml 10 Ml Vial) 15 unit SUBCUT DAILY [facility] Last Admin: 10/06/23 09:14 Dose: 15 unit Documented By: MANOHAR Insulin Human Lispro (Insulin Lispro 100 Unit/Ml 3 Ml Vial) 0 unit SUBCUT QIDACHS [facility]; Protocol Last Admin: 10/06/23 08:05 Dose: Not Given Documented By: MANOHAR Non-Admin Reason: No Insulin Coverage Insulin Human Lispro (Insulin Lispro 100 Unit/Ml 3 Ml Vial) 5 unit SUBCUT QIDACHS [facility] Last Admin: 10/06/23 08:06 Dose: Not Given Documented By: MANOHAR Non-Admin Reason: No Insulin Coverage Levofloxacin (Levofloxacin 750 Mg Tablet) 750 mg PO Q48H [facility] Last Admin: 10/06/23 09:14 Dose: 750 mg Documented By: MANOHAR Methylprednisolone Sodium Succinate (Methylprednisolone Sod Succ 40 Mg/Ml Vial) 40 mg IVPUSH Q12H [facility] Last Admin: 10/06/23 05:23 Dose: 40 mg Documented By: ROBERT Metoprolol Tartrate (Metoprolol Tartrate 12.5 Mg Halftab) 12.5 mg PO BID [facility]; Protocol Last Admin: 10/06/23 09:13 Dose: 12.5 mg Documented By: MANOHAR Omeprazole (Omeprazole 20 Mg Capsule.Dr) 20 mg PO DAILY@0630 [facility] Last Admin: 10/06/23 05:23 Dose: 20 mg Documented By: ROBERT Labs 10/03/23 09:44 10/05/23 18:20 Labs: Laboratory Results - last 24 hr 10/05/23 10/05/23 10/05/23 11:08 15:48 18:20 Anion Gap 17 Estim Creat Clear Calc 41.8 Estimated GFR 42 POC Glucose 230 H 235 H Random Glucose 295 H Calcium 9.1 Magnesium 2.2 10/05/23 10/06/23 19:55 07:11 Anion Gap Estim Creat Clear Calc Estimated GFR POC Glucose 216 H 134 H Random Glucose Calcium Magnesium Assessment and Plan (1) Acute respiratory failure with hypoxia and hypercapnia: Status: Acute Plan 73 year old male with history of chronic respiratory failure on 2L of supplemental oxygen, COPD, atrial fibrillation on Eliquis, DM, HFpEF, CAD, h/o cocaine use who presented to the ED with shortness of breath found to have hypoxia and pneumonia with concern for aspiration and requiring bipap and ICU level of care, admitted to the ICU on 09/25 and downgraded to the medical floor the following day 09/26. Also noted to have confusion ongoing for unclear period of time, at least several weeks. Acute on chronic respiratory failure with hypoxia and hypercarbia, d/t copd with exa, asp PNA. Has been on high flow for longtime. Now weaned to oxymizer and doing well -Transition to PO steroid with [facility] -Levaquin for Asp PNA since 10/02 and treat for 7 days acute Metabolic acidosis bicarb improving was on diamox but stopped DM2 with hyperglycemia r/t steroids holding glipizide, trulicity POCs, SSI, ADA diet Hba1c 6.6 On lantus and mealtime insulin added monitor POCs as steroids are weaned Hyperthyroidism thyroid tests from 09/27 c/w hyperthyroidism repeat test today, 09/28 showing improvement. improvement in mental status. HR controlled. no evidence of thyroid storm at this time Free t3 1.8 pt denies previous history of thyroid disease, previous TSH from 2021 was 0.74 discussed with endocrinology, if labs stable no indication for transfer dysphagia seen by speech, rec NDD1 diet with honey thick liquids continue aspiration precautions tolerating diet leukocytosis likely r/t steroids acute lactic acidosis likely r/t hypoxia not sepsis encephalopathy vs dementia brain CT negative for acute changes, showing microangiopathy and generalized volume loss as well as chronic appearing lacunar infarcts improved. patient awake and oriented and able to answer questions appropriately. seems to be at baseline hypokalemia resolved with replacement atrial fibrillation continue Eliquis resume home dose of metoprolol CKD3 no recent baseline, creatinine previously around 1.7. remains near baseline follow closely chronic HFpEF no acute exacerbation bnp 58 lasix has been on hold HTN hold norvasc continue metoprolol follow BP closely CAD resume BB, statin dvt ppx - eliquis attending - Dr. Bethea patient requires ongoing inpatient stay for persistent respiratory failure requiring high flow o2 and difficult to wean Quality Stroke Does the patient have a stroke diagnosis?: No VTE Prior VTE?: No VTE Risk Level:: Medical - moderate - high VTE Device Contraindication: N/A - Device Ordered VTE Drug Contraindication: N/A - Med Ordered
[2023-10-06 11:13] LABS: Glucose, Whole Blood 367 mg/dL (60-115)
[2023-10-06] MEDS: Insulin Lispro 100 UNIT/ML 3 ML VIAL SUBCUT ×6 (11:59→20:42)
[2023-10-06 16:52] LABS: Glucose, Whole Blood 220 mg/dL (60-115)
[2023-10-06 20:04] LABS: Glucose, Whole Blood 168 mg/dL (60-115)
[2023-10-06] MEDS: Atorvastatin Calcium 80 MG TABLET PO (20:41)
[2023-10-07] VITALS (10 sets, daily range): BP systolic 114–144; BP diastolic 63–77; PULSE 69–100; RESP 14–20; TEMP 36–36.8; O2SAT 90–96
[2023-10-07] MEDS: Omeprazole 20 MG CAPSULE.DR PO (05:14)
[2023-10-07] MEDS: methylPREDNISolone Sod Succ 40 MG/ML VIAL IVPUSH (05:14)
[2023-10-07 06:33] LABS: Hematocrit 38.5 % (42.0-52.0); Hemoglobin 12.6 g/dl (14.0-18.0); Mean Corpuscular HGB Conc 32.7 g/dl (31.0-36.0); Mean Corpuscular Hemoglobin 26.3 pg (27.0-33.0); Mean Corpuscular Volume 80.4 fL (80.0-98.0); Mean Platelet Volume 12.4 fL (9.4-12.4); PLT CLUMP 1; Red Blood Count 4.79 X10*6/uL (4.60-5.80); Red Cell Distribution Width 13.6 % (11.0-16.0)
[2023-10-07 06:38] LABS: Anion Gap 13 (12-20); Blood Urea Nitrogen 52 mg/dL (9-16); Calcium 8.6 mg/dL (8.4-10.2); Carbon Dioxide 37 mmol/L (22-29); Chloride 90 mmol/L (96-108); Creatinine Clr Calc Pharmacy 49.9; Estimated Glomerular Filt Rate 52; Glucose Random 131 mg/dL (60-115); Potassium 3.6 mmol/L (3.3-5.1); Sodium 136 mmol/L (135-145)
[2023-10-07 06:53] LABS: Platelet Count 150 X10*3/uL (160-400); White Blood Count 16.6 X10*3/uL (4.8-10.8)
[2023-10-07 07:58] LABS: Glucose, Whole Blood 159 mg/dL (60-115)
[2023-10-07] MEDS: Insulin Lispro 100 UNIT/ML 3 ML VIAL SUBCUT ×6 (08:06→22:14)
[2023-10-07] MEDS: Insulin Glargine,Hum.rec.anlog 100 UNIT/ML 10 ML VIAL 15 UNIT SUBCUT (08:06)
[2023-10-07] MEDS: Folic Acid 1 MG TABLET PO (08:07)
[2023-10-07] MEDS: Metoprolol Tartrate 12.5 MG HALFTAB PO ×2 (08:07→21:51)
[2023-10-07] MEDS: Apixaban 5 MG TABLET PO ×2 (08:07→21:51)
[2023-10-07] MEDS: predniSONE 20 MG TABLET PO (08:56)
--- NOTE | 2023-10-07 09:04 | PC.NURSE ---
Olmos cath. removed at 9am per MD, pt. tolerated well. Pt. due to void at 1400 on 10/07/23
--- NOTE | 2023-10-07 10:16 | MHC.CM.PN ---
Per ROUNDS discussion, Patient is improving (on home O2 level-2L)and will benefit from a PT eval to assist with disposition. CM will follow.
--- NOTE | 2023-10-07 11:25 | MHC.SL.SWA ---
Speech Pathologist Impression: Risk of aspiration, oropharyngeal dysphagia Risk of Aspiration Due to: History of Pneumonia Reduced Cognition Weak Voice Dysphasia Diet Status: Recommend UPGRADE to GROUND/MECH ALTERED (NDD2) diet and NECTAR THICK liquids via teaspoon or cup (NO STRAWS), pills CRUSHED in PUREE. Recommend 1:1 supervision, provide pt w/ assistance as needed with tray set up and throughout meal, provide cues for strategies (upright positioning, small bites/sips, slow pacing, ensure oral cavity is clear before taking more bites/sips, dry swallow between bites/sips), monitor pt closely. Maintain aspiration precautions. Liquid Consistency and Strategies for Safe Swallow: Liquid Intake Recommendation: [place] Thick Liquid Intake Strategies: Small Sips No Straws Solid Food Consistency: Dietary Recommendations: Grnd/Mech Altered (NDD2) Oral Medication Intake: Crushed with Puree Please contact the pharmacy regarding appropriate crushable or liquid drug formulations that are available whenever modified delivery is recommended. Compensatory Strategies and Precautions to be Taken for Safe Swallow: Sitting Upright (90 deg) No Straw Small Bites and Sips Alternate Liquids/Solids Rate of Ingestion Change Oral Check Avoid Specific Foods Supervision While Eating and Drinking for Safe Swallow: Total Supervision (1:1) Foods to Avoid: Mixed textures, hard to chew solids Swallowing Recommended Treatments: Compens. Strategy Educat. Recommendation for Speech: Inpatient Speech Therapy Comment: 1:1 assistance and strict aspiration precautions Frequency/Duration: PRN M-F Date Range for Service Req: Timeline to reassess: Field Marketing Director Clinican/Clinical Fellow: No Supervisory Statement: I have reviewed and agree with the student/clinical fellow's documentation: N/A Speech Language Pathologist: Ashtyn Neil M.A., CCC-EDITOR SOUND
--- NOTE | 2023-10-07 11:26 | P.PNIM_ITS ---
Subjective Subjective Date of Service: 10/07/23 Interval History: Continue to do well on nasal canula at 2 liters Physical Exam 2 Vital Signs: Vital Signs: Last Vital Signs Temp 97.3 F 10/07/23 07:16 Pulse 86 10/07/23 07:16 Resp 18 10/07/23 07:16 BP 143/66 H 10/07/23 07:16 Pulse Ox 91 L 10/07/23 07:16 O2 Del Method Nasal Cannula 10/07/23 07:16 O2 Flow Rate 2 10/07/23 07:16 FiO2 65 10/05/23 11:24 Oxygen Flow Rate 15 09/25/23 16:58 BMI result Body Mass Index 23.8 Const: Other: General: AO X 3, no acute distress Resp: CTA bilateral CVS: S1,S2,RRR GI: +BS, NT, no distention Skin: cold hand Neuro: motor grossly intact Psych: appropriate affect Objective Data Active Medications Albuterol/Ipratropium (Albuterol/Iprat 2.5/0.5mg 3 Ml Ampul.Neb) 3 ml INHALE RQID [facility] Last Admin: 10/07/23 07:56 Dose: Not Given Documented By: AWA Non-Admin Reason: Patient Refused Apixaban (Apixaban 5 Mg Tablet) 5 mg PO BID [facility] Last Admin: 10/07/23 08:07 Dose: 5 mg Documented By: KAUR Atorvastatin Calcium (Atorvastatin Calcium 80 Mg Tablet) 80 mg PO BEDTIME [facility] Last Admin: 10/06/23 20:41 Dose: 80 mg Documented By: JOHN Dextrose (Dextrose 50 % 25 Gm/50 Ml Syringe) 25 gm IVPUSH Q30M PRN PRN Reason: BG < 70 Folic Acid (Folic Acid 1 Mg Tablet) 1 mg PO DAILY [facility] Last Admin: 10/07/23 08:07 Dose: 1 mg Documented By: KAUR Insulin Glargine (Insulin Glargine,Hum.Rec.Anlog 100 Unit/Ml 10 Ml Vial) 15 unit SUBCUT DAILY [facility] Last Admin: 10/07/23 08:06 Dose: 15 unit Documented By: KAUR Insulin Human Lispro (Insulin Lispro 100 Unit/Ml 3 Ml Vial) 0 unit SUBCUT QIDACHS [facility]; Protocol Last Admin: 10/07/23 08:06 Dose: 2 unit Documented By: KAUR Insulin Human Lispro (Insulin Lispro 100 Unit/Ml 3 Ml Vial) 5 unit SUBCUT QIDACHS [facility] Last Admin: 10/07/23 08:06 Dose: 5 unit Documented By: KAUR Levofloxacin (Levofloxacin 750 Mg Tablet) 750 mg PO Q48H [facility] Last Admin: 10/06/23 09:14 Dose: 750 mg Documented By: MANOHAR Metoprolol Tartrate (Metoprolol Tartrate 12.5 Mg Halftab) 12.5 mg PO BID [facility]; Protocol Last Admin: 10/07/23 08:07 Dose: 12.5 mg Documented By: KAUR Omeprazole (Omeprazole 20 Mg Capsule.Dr) 20 mg PO DAILY@0630 [facility] Last Admin: 10/07/23 05:14 Dose: 20 mg Documented By: JOHN Prednisone (Prednisone 20 Mg Tablet) 20 mg PO DAILY [facility] Last Admin: 10/07/23 08:56 Dose: 20 mg Documented By: KAUR Labs 10/07/23 05:52 10/07/23 05:52 Labs: Laboratory Results - last 24 hr 10/06/23 10/06/23 10/07/23 16:43 19:53 05:52 MCV 80.4 D MCH 26.3 L MCHC 32.7 RDW 13.6 Plt Count 150 L MPV 12.4 Absolute Nucleated RBC 0.000 Nucleated RBC % (auto) 0.0 Anion Gap 13 Estim Creat Clear Calc 49.9 Estimated GFR 52 POC Glucose 220 H 168 H Random Glucose 131 H Calcium 8.6 10/07/23 07:21 MCV MCH MCHC RDW Plt Count MPV Absolute Nucleated RBC Nucleated RBC % (auto) Anion Gap Estim Creat Clear Calc Estimated GFR POC Glucose 159 H Random Glucose Calcium Assessment and Plan (1) Acute respiratory failure with hypoxia and hypercapnia: Status: Acute Plan 73 year old male with history of chronic respiratory failure on 2L of supplemental oxygen, COPD, atrial fibrillation on Eliquis, DM, HFpEF, CAD, h/o cocaine use who presented to the ED with shortness of breath found to have hypoxia and pneumonia with concern for aspiration and requiring bipap and ICU level of care, admitted to the ICU on 09/25 and downgraded to the medical floor the following day 09/26. Also noted to have confusion ongoing for unclear period of time, at least several weeks. Acute on chronic respiratory failure with hypoxia and hypercarbia, d/t copd with exa, asp PNA. Has been on high flow for longtime. Now weaned to oxymizer and doing well on nasal canula 2 liters. No indication for bronch at this time. -Transition to PO steroid with [facility] -Levaquin for Asp PNA since 10/02 and treat for 7 days Acute Metabolic acidosis bicarb improving was on diamox but stopped DM2 with hyperglycemia r/t steroids restart glipizide, hold trulicity POCs, SSI, ADA diet Hba1c 6.6 On lantus and mealtime insulin added monitor POCs as steroids are weaned Hyperthyroidism thyroid tests from 09/27 c/w hyperthyroidism repeat test today, 09/28 showing improvement. improvement in mental status. HR controlled. no evidence of thyroid storm at this time Free t3 1.8 pt denies previous history of thyroid disease, previous TSH from 2021 was 0.74 discussed with endocrinology, if labs stable no indication for transfer dysphagia seen by speech, rec NDD2 diet with nectar thick liquids continue aspiration precautions tolerating diet leukocytosis likely r/t steroids acute lactic acidosis likely r/t hypoxia not sepsis encephalopathy vs dementia brain CT negative for acute changes, showing microangiopathy and generalized volume loss as well as chronic appearing lacunar infarcts improved. patient awake and oriented and able to answer questions appropriately. seems to be at baseline hypokalemia resolved with replacement atrial fibrillation continue Eliquis resume home dose of metoprolol CKD3 no recent baseline, creatinine previously around 1.7. remains near baseline follow closely chronic HFpEF no acute exacerbation bnp 58 lasix has been on hold HTN hold norvasc continue metoprolol follow BP closely CAD resume BB, statin dvt ppx - eliquis PT eval patient requires ongoing inpatient stay for persistent respiratory failure requiring high flow o2 and difficult to wean Quality Stroke Does the patient have a stroke diagnosis?: No VTE Prior VTE?: No VTE Risk Level:: Medical - moderate - high VTE Device Contraindication: N/A - Device Ordered VTE Drug Contraindication: N/A - Med Ordered
[2023-10-07 11:39] LABS: Glucose, Whole Blood 299 mg/dL (60-115)
[2023-10-07] MEDS: Albuterol/Iprat 2.5/0.5MG 3 ML AMPUL.NEB INHALE ×2 (15:45→19:42)
[2023-10-07 16:49] LABS: Glucose, Whole Blood 72 mg/dL (60-115)
--- NOTE | 2023-10-07 18:33 | PC.NURSE ---
Olmos cath removed this morning per MD to attempt voiding trial. Patient was due to void at 1400. After multiple attempts patient was unable to void, patient was then bladder scanned at 1530 showing 400mls in bladder. Spoke with MD and suggested we reinsert Olmos cath. Olmos inserted at 1530 per MD, 500 mls of clear yellow urine drained.
[2023-10-07 20:40] LABS: Glucose, Whole Blood 263 mg/dL (60-115)
[2023-10-07] MEDS: Atorvastatin Calcium 80 MG TABLET PO (21:51)
[2023-10-08] VITALS (11 sets, daily range): BP systolic 102–148; BP diastolic 59–92; PULSE 68–106; RESP 16–20; TEMP 36–36.4; O2SAT 90–100
[2023-10-08] MEDS: Omeprazole 20 MG CAPSULE.DR PO (06:39)
[2023-10-08 07:24] LABS: Glucose, Whole Blood 120 mg/dL (60-115)
[2023-10-08] MEDS: Albuterol/Iprat 2.5/0.5MG 3 ML AMPUL.NEB INHALE ×4 (07:42→19:37)
[2023-10-08] MEDS: levoFLOXacin 750 MG TABLET PO (08:23)
[2023-10-08] MEDS: Apixaban 5 MG TABLET PO ×2 (08:23→22:01)
[2023-10-08] MEDS: Folic Acid 1 MG TABLET PO (08:23)
[2023-10-08] MEDS: Metoprolol Tartrate 12.5 MG HALFTAB PO ×2 (08:24→22:01)
[2023-10-08] MEDS: Insulin Glargine,Hum.rec.anlog 100 UNIT/ML 10 ML VIAL 15 UNIT SUBCUT (08:24)
[2023-10-08] MEDS: predniSONE 20 MG TABLET PO (08:27)
[2023-10-08 10:59] LABS: Glucose, Whole Blood 155 mg/dL (60-115)
[2023-10-08] MEDS: Insulin Lispro 100 UNIT/ML 3 ML VIAL SUBCUT ×4 (12:09→22:01)
--- NOTE | 2023-10-08 15:23 | MHC.SL.SWA ---
Speech Pathologist Impression: Risk of aspiration, oropharyngeal dysphagia Risk of Aspiration Due to: History of Pneumonia Reduced Cognition Weak Voice Dysphasia Diet Status: Recommend continue with GROUND/MECH ALTERED (NDD2) diet and UPGRADE to THIN liquids via teaspoon or cup (NO STRAWS), pills CRUSHED in PUREE. Recommend 1:1 supervision, provide pt w/ assistance as needed with tray set up and throughout meal, provide cues for strategies (upright positioning, small bites/sips, slow pacing, ensure oral cavity is clear before taking more bites/sips, dry swallow between bites/sips), monitor pt closely given recent upgrade. Maintain aspiration precautions. Liquid Consistency and Strategies for Safe Swallow: Liquid Intake Recommendation: Thin Liquid Intake Strategies: Small Sips No Straws Solid Food Consistency: Dietary Recommendations: Grnd/Mech Altered (NDD2) Oral Medication Intake: Crushed with Puree Please contact the pharmacy regarding appropriate crushable or liquid drug formulations that are available whenever modified delivery is recommended. Compensatory Strategies and Precautions to be Taken for Safe Swallow: Sitting Upright (90 deg) No Straw Small Bites and Sips Alternate Liquids/Solids Rate of Ingestion Change Oral Check Avoid Specific Foods Supervision While Eating and Drinking for Safe Swallow: Total Supervision (1:1) Foods to Avoid: Mixed textures, hard to chew solids Swallowing Recommended Treatments: Compens. Strategy Educat. Recommendation for Speech: Inpatient Speech Therapy Frequency/Duration: PRN M-F Date Range for Service Req: Timeline to reassess: Financial Aid Advisor Clinican/Clinical Fellow: No Supervisory Statement: I have reviewed and agree with the student/clinical fellow's documentation: N/A Speech Language Pathologist: Ashtyn Neil M.A., CCC-SHIRRING MACHINE OPERATOR AUTOMATIC
[2023-10-08 15:56] LABS: Glucose, Whole Blood 250 mg/dL (60-115)
[2023-10-08] MEDS: Tamsulosin HCL 0.4 MG CAPSULE PO (16:21)
--- NOTE | 2023-10-08 16:40 | P.PNIM_ITS ---
Subjective Subjective Date of Service: 10/08/23 Interval History: copd excerebation Review of Systems sob still with minimal excersion denies any chest pain or cough Physical Exam 2 Vital Signs: Vital Signs: Last Vital Signs Temp 97.0 F 10/08/23 15:22 Pulse 98 10/08/23 15:41 Resp 20 10/08/23 15:41 BP 137/92 H 10/08/23 15:22 Pulse Ox 90 L 10/08/23 15:22 O2 Del Method Nasal Cannula 10/08/23 15:22 O2 Flow Rate 1 10/08/23 15:22 FiO2 65 10/05/23 11:24 Oxygen Flow Rate 15 09/25/23 16:58 BMI result Body Mass Index 23.8 General: AO X 3, no acute distress Resp: CTA bilateral CVS: S1,S2,RRR GI: +BS, NT, no distention Skin: cold hand Neuro: motor grossly intact Psych: appropriate affect Objective Data Active Medications Albuterol/Ipratropium (Albuterol/Iprat 2.5/0.5mg 3 Ml Ampul.Neb) 3 ml INHALE RQID [facility] Last Admin: 10/08/23 15:40 Dose: 3 ml Documented By: FAN Apixaban (Apixaban 5 Mg Tablet) 5 mg PO BID [facility] Last Admin: 10/08/23 08:23 Dose: 5 mg Documented By: PODMORP Atorvastatin Calcium (Atorvastatin Calcium 80 Mg Tablet) 80 mg PO BEDTIME [facility] Last Admin: 10/07/23 21:51 Dose: 80 mg Documented By: JOHN Dextrose (Dextrose 50 % 25 Gm/50 Ml Syringe) 25 gm IVPUSH Q30M PRN PRN Reason: BG < 70 Folic Acid (Folic Acid 1 Mg Tablet) 1 mg PO DAILY [facility] Last Admin: 10/08/23 08:23 Dose: 1 mg Documented By: OBDULIOMOGERALDO Insulin Glargine (Insulin Glargine,Hum.Rec.Anlog 100 Unit/Ml 10 Ml Vial) 15 unit SUBCUT DAILY [facility] Last Admin: 10/08/23 08:24 Dose: 15 unit Documented By: OBDULIOMORP Insulin Human Lispro (Insulin Lispro 100 Unit/Ml 3 Ml Vial) 0 unit SUBCUT QIDACHS [facility]; Protocol Last Admin: 10/08/23 16:20 Dose: 6 unit Documented By: OBDULIOMORP Insulin Human Lispro (Insulin Lispro 100 Unit/Ml 3 Ml Vial) 5 unit SUBCUT QIDACHS [facility] Last Admin: 10/08/23 16:21 Dose: 5 unit Documented By: PODMORP Levofloxacin (Levofloxacin 750 Mg Tablet) 750 mg PO Q48H [facility] Last Admin: 10/08/23 08:23 Dose: 750 mg Documented By: PODMORP Metoprolol Tartrate (Metoprolol Tartrate 12.5 Mg Halftab) 12.5 mg PO BID [facility]; Protocol Last Admin: 10/08/23 08:24 Dose: 12.5 mg Documented By: OBDULIOMORP Omeprazole (Omeprazole 20 Mg Capsule.) 20 mg PO DAILY@0630 [facility] Last Admin: 10/08/23 06:39 Dose: 20 mg Documented By: ALICIA Prednisone (Prednisone 20 Mg Tablet) 20 mg PO DAILY [facility] Last Admin: 10/08/23 08:27 Dose: 20 mg Documented By: OBDULIOMORP Ropinirole HCl (Ropinirole Hcl 0.5 Mg Tablet) 0.5 mg PO BEDTIME [facility] Tamsulosin HCl (Tamsulosin Hcl 0.4 Mg Capsule) 0.4 mg PO DAILY [facility] Last Admin: 10/08/23 16:21 Dose: 0.4 mg Documented By: OBDULIOMOGERALDO Labs 10/07/23 05:52 10/07/23 05:52 Labs: Laboratory Results - last 24 hr 10/07/23 10/07/23 10/08/23 16:46 20:32 07:16 POC Glucose 72 263 H 120 H 10/08/23 10/08/23 10:56 15:52 POC Glucose 155 H 250 H Assessment and Plan (1) Paroxysmal atrial fibrillation: Status: Acute Plan 73 year old male with history of chronic respiratory failure on 2L of supplemental oxygen, COPD, atrial fibrillation on Eliquis, DM, HFpEF, CAD, h/o cocaine use who presented to the ED with shortness of breath found to have hypoxia and pneumonia with concern for aspiration and requiring bipap and ICU level of care, admitted to the ICU on 09/25 and downgraded to the medical floor the following day 09/26. Also noted to have confusion ongoing for unclear period of time, at least several weeks. Acute on chronic respiratory failure with hypoxia and hypercarbia, d/t copd with exa, asp PNA. Has been on high flow for longtime. Now weaned to oxymizer and doing well on nasal canula 2 liters. No indication for bronch at this time. -Transition to PO steroid with [facility] casandra,taper oxygen -Levaquin for Asp PNA since 10/02 and treat for 7 days Acute Metabolic acidosis bicarb improving was on diamox but stopped DM2 with hyperglycemia r/t steroids Hba1c 6.6 restart glipizide, hold trulicity POCs, SSI, ADA diet On lantus and mealtime insulin added monitor POCs as steroids are weaned Hyperthyroidism thyroid tests from 09/27 c/w hyperthyroidism repeat test today, 09/28 showing improvement. improvement in mental status. HR controlled. no evidence of thyroid storm at this time Free t3 1.8 pt denies previous history of thyroid disease, previous TSH from 2021 was 0.74 discussed with endocrinology, if labs stable no indication for transfer dysphagia seen by speech, rec NDD2 diet with nectar thick liquids continue aspiration precautions tolerating diet leukocytosis likely r/t steroids acute lactic acidosis likely r/t hypoxia not sepsis encephalopathy vs dementia brain CT negative for acute changes, showing microangiopathy and generalized volume loss as well as chronic appearing lacunar infarcts improved. patient awake and oriented and able to answer questions appropriately. seems to be at baseline hypokalemia resolved with replacement . atrial fibrillation continue Eliquis resume home dose of metoprolol CKD3 no recent baseline, creatinine previously around 1.7. remains near baseline follow closely chronic HFpEF no acute exacerbation bnp 58 lasix has been on hold HTN hold norvasc continue metoprolol follow BP closely CAD resume BB, statin dvt ppx - eliquis PT eval ongoing inpatient stay : persistent respiratory failure requiring high flow o2 and difficult to wean. Quality Stroke Does the patient have a stroke diagnosis?: No VTE Prior VTE?: No VTE Risk Level:: Medical - moderate - high VTE Device Contraindication: N/A - Device Ordered VTE Drug Contraindication: N/A - Med Ordered
[2023-10-08 20:49] LABS: Glucose, Whole Blood 196 mg/dL (60-115)
[2023-10-08] MEDS: rOPINIRole HCL 0.5 MG TABLET PO (22:01)
[2023-10-08] MEDS: Atorvastatin Calcium 80 MG TABLET PO (22:01)
[2023-10-09] VITALS (8 sets, daily range): BP systolic 103–150; BP diastolic 56–66; PULSE 60–97; RESP 16–18; TEMP 36.4–36.6; O2SAT 90–99
[2023-10-09] MEDS: Omeprazole 20 MG CAPSULE.DR PO (04:59)
[2023-10-09 07:25] LABS: Glucose, Whole Blood 81 mg/dL (60-115)
[2023-10-09] MEDS: Insulin Glargine,Hum.rec.anlog 100 UNIT/ML 10 ML VIAL 15 UNIT SUBCUT (08:12)
[2023-10-09] MEDS: Metoprolol Tartrate 12.5 MG HALFTAB PO ×2 (08:13→20:29)
[2023-10-09] MEDS: Folic Acid 1 MG TABLET PO (08:14)
[2023-10-09] MEDS: Apixaban 5 MG TABLET PO ×2 (08:14→20:29)
[2023-10-09] MEDS: Gabapentin 300 MG CAPSULE PO (08:14)
[2023-10-09] MEDS: Tamsulosin HCL 0.4 MG CAPSULE PO (08:14)
[2023-10-09] MEDS: predniSONE 10 MG TABLET PO (08:14)
[2023-10-09] MEDS: Furosemide 20 MG TABLET PO ×2 (08:15→16:54)
[2023-10-09 09:25] LABS: Anion Gap 13 (12-20); Blood Urea Nitrogen 36 mg/dL (9-16); Calcium 8.4 mg/dL (8.4-10.2); Carbon Dioxide 33 mmol/L (22-29); Chloride 92 mmol/L (96-108); Creatinine Clr Calc Pharmacy 55.3; Estimated Glomerular Filt Rate 59; Glucose Random 100 mg/dL (60-115); Potassium 3.9 mmol/L (3.3-5.1); Sodium 134 mmol/L (135-145)
--- NOTE | 2023-10-09 10:12 | MHC.CM.PN ---
Per ROUNDS discussion, Patient is still SOB and Lasix was started. Patient is not yet medically cleared for dc; PT is recommending STR.CM will follow.
[2023-10-09] MEDS: Albuterol/Iprat 2.5/0.5MG 3 ML AMPUL.NEB INHALE ×2 (11:27→18:43)
[2023-10-09 11:38] LABS: Glucose, Whole Blood 122 mg/dL (60-115)
--- NOTE | 2023-10-09 14:28 | HO.WOUND ---
Wound Consult: Initial 73yr old [place] [facility] [place]09[place]25/23 22:26 - See progress notes and H&P for detailed history. Sacrum Etiology: Deep Tissue Injury in Evolution Measurements: 9cm x 15cm x 0.1cm Wound Bed: central area of partial thickness tissue loss surrounded by dark purple nonblanchable lifting tissue Drainage / Odor: small amount of serosang Edges: ? irregular Pari wound: ? slow to cassy erythema No Induration, No Fluctuance Pain: denies pain Goals of Treatment: ? Off Load Pressure - Traid followed by foam dressing - to allow for autolytic moist wound healing and protect from friction and moisture Recommendations: 1. Turn and Reposition every 2 hours and as needed for patient comfort consider, Limit sit time to 1-2 hr increments, use chair cushion when up to chair. 2. Off Load all bony prominences with use of pillows. 3. Monitor for incontinence and moisture control. 4. Provide adequate and supplemental nutrition. 5. Order or Continue low air loss mattress. 6. Maintain blood glucose levels per Providers orders. 7. Sacrum - Off Load Pressure - Cleanse with PH balance spray, pat dry. ?Apply thin layer of Triad to wound bed - only pat and dab no scrub and rub when soiling occurs. Cover with Foam dressing. Change daily. Re-consult wound care Nurse for wound deterioration or wound changes.
--- NOTE | 2023-10-09 16:06 | HO.PM.IMPN ---
Subjective Subjective Date of Service: 10/09/23 Interval History: copd excerebation Review of Systems sob still with minimal excersion denies any chest pain or cough Physical Exam Vital Signs: Vital Signs: Last Vital Signs Temp 98 F 10/09/23 15:25 Pulse 94 10/09/23 15:25 Resp 18 10/09/23 15:25 BP 125/59 L 10/09/23 15:25 Pulse Ox 92 10/09/23 15:25 O2 Del Method Nasal Cannula 10/09/23 15:25 O2 Flow Rate 1 10/09/23 11:39 FiO2 65 10/05/23 11:24 Oxygen Flow Rate 15 09/25/23 16:58 BMI result Body Mass Index 23.8 General: AO X 3, no acute distress Resp: CTA bilateral CVS: S1,S2,RRR GI: +BS, NT, no distention Skin: cold hand Neuro: motor grossly intact Psych: appropriate affect Objective Data Active Medications Albuterol/Ipratropium (Albuterol/Iprat 2.5/0.5mg 3 Ml Ampul.Neb) 3 ml INHALE RQID [facility] Last Admin: 10/09/23 15:54 Dose: Not Given Documented By: AWA Non-Admin Reason: Patient Asleep Apixaban (Apixaban 5 Mg Tablet) 5 mg PO BID [facility] Last Admin: 10/09/23 08:14 Dose: 5 mg Documented By: BRODY Atorvastatin Calcium (Atorvastatin Calcium 80 Mg Tablet) 80 mg PO BEDTIME [facility] Last Admin: 10/08/23 22:01 Dose: 80 mg Documented By: AMA Dextrose (Dextrose 50 % 25 Gm/50 Ml Syringe) 25 gm IVPUSH Q30M PRN PRN Reason: BG < 70 Fluticasone/Umeclidinium/Vilanterol (Fluticasone/Umeclidinium/Vilanterol 200/62.5/25 Blst.W.Dev) 1 puff INHALE RDAILY [facility] Last Admin: 10/09/23 08:03 Dose: Not Given Documented By: ISIDRA Non-Admin Reason: Patient Refused Folic Acid (Folic Acid 1 Mg Tablet) 1 mg PO DAILY [facility] Last Admin: 10/09/23 08:14 Dose: 1 mg Documented By: BRODY Furosemide (Furosemide 20 Mg Tablet) 20 mg PO BID@0900,1800 [facility]; Protocol Last Admin: 10/09/23 08:15 Dose: 20 mg Documented By: BRODY Gabapentin (Gabapentin 300 Mg Capsule) 300 mg PO DAILY [facility] Last Admin: 10/09/23 08:14 Dose: 300 mg Documented By: BRODY Insulin Glargine (Insulin Glargine,Hum.Rec.Anlog 100 Unit/Ml 10 Ml Vial) 15 unit SUBCUT DAILY [facility] Last Admin: 10/09/23 08:12 Dose: 15 unit Documented By: BRODY Insulin Human Lispro (Insulin Lispro 100 Unit/Ml 3 Ml Vial) 0 unit SUBCUT QIDACHS [facility]; Protocol Last Admin: 10/09/23 12:29 Dose: Not Given Documented By: BRODY Non-Admin Reason: No Insulin Coverage Levofloxacin (Levofloxacin 750 Mg Tablet) 750 mg PO Q48H [facility] Last Admin: 10/08/23 08:23 Dose: 750 mg Documented By: OBDULIOMOGERALDO Metoprolol Tartrate (Metoprolol Tartrate 12.5 Mg Halftab) 12.5 mg PO BID [facility]; Protocol Last Admin: 10/09/23 08:13 Dose: 12.5 mg Documented By: BRODY Omeprazole (Omeprazole 20 Mg Capsule.) 20 mg PO DAILY@0630 [facility] Last Admin: 10/09/23 04:59 Dose: 20 mg Documented By: AMA Prednisone (Prednisone 10 Mg Tablet) 10 mg PO DAILY [facility] Last Admin: 10/09/23 08:14 Dose: 10 mg Documented By: BRODY Ropinirole HCl (Ropinirole Hcl 0.5 Mg Tablet) 0.5 mg PO BEDTIME [facility] Last Admin: 10/08/23 22:01 Dose: 0.5 mg Documented By: AMA Tamsulosin HCl (Tamsulosin Hcl 0.4 Mg Capsule) 0.4 mg PO DAILY [facility] Last Admin: 10/09/23 08:14 Dose: 0.4 mg Documented By: BRODY Labs 10/07/23 05:52 10/09/23 08:55 Labs: Laboratory Results - last 24 hr 10/08/23 10/09/23 10/09/23 20:35 07:14 08:55 Anion Gap 13 Estim Creat Clear Calc 55.3 Estimated GFR 59 POC Glucose 196 H 81 Random Glucose 100 Calcium 8.4 10/09/23 11:31 Anion Gap Estim Creat Clear Calc Estimated GFR POC Glucose 122 H Random Glucose Calcium Assessment and Plan (1) COPD (chronic obstructive pulmonary disease): Status: Acute Plan 73 year old male with history of chronic respiratory failure on 2L of supplemental oxygen, COPD, atrial fibrillation on Eliquis, DM, HFpEF, CAD, h/o cocaine use who presented to the ED with shortness of breath found to have hypoxia and pneumonia with concern for aspiration and requiring bipap and ICU level of care, admitted to the ICU on 09/25 and downgraded to the medical floor the following day 09/26. Also noted to have confusion ongoing for unclear period of time, at least several weeks. Acute on chronic respiratory failure with hypoxia and hypercarbia, d/t copd with exa, asp PNA. Has been on high flow for longtime. Now weaned to oxymizer and doing well on nasal canula 2 liters. No indication for bronch at this time. -Transition to PO steroid with fpc casandra,taper oxygen -Levaquin for Asp PNA since 10/02 and treat for 7 days Acute Metabolic acidosis bicarb improving was on diamox but stopped DM2 with hyperglycemia r/t steroids Hba1c 6.6 restart glipizide, hold trulicity POCs, SSI, ADA diet On lantus and mealtime insulin added monitor POCs as steroids are weaned Hyperthyroidism thyroid tests from 09/27 c/w hyperthyroidism repeat test today, 09/28 showing improvement. improvement in mental status. HR controlled. no evidence of thyroid storm at this time Free t3 1.8 pt denies previous history of thyroid disease, previous TSH from 2021 was 0.74 discussed with endocrinology, if labs stable no indication for transfer dysphagia seen by speech, rec NDD2 diet with nectar thick liquids continue aspiration precautions tolerating diet leukocytosis likely r/t steroids acute lactic acidosis likely r/t hypoxia not sepsis encephalopathy vs dementia brain CT negative for acute changes, showing microangiopathy and generalized volume loss as well as chronic appearing lacunar infarcts improved. patient awake and oriented and able to answer questions appropriately. seems to be at baseline hypokalemia resolved with replacement . atrial fibrillation continue Eliquis resume home dose of metoprolol CKD3 no recent baseline, creatinine previously around 1.7. remains near baseline follow closely chronic HFpEF no acute exacerbation bnp 58 lasix started back-low dose. HTN hold norvasc continue metoprolol follow BP closely CAD resume BB, statin dvt ppx - eliquis PT eval ongoing inpatient stay : persistent respiratory failure requiring high flow o2 and difficult to wean. Quality Stroke Does the patient have a stroke diagnosis?: No VTE Prior VTE?: No VTE Risk Level:: Medical - moderate - high VTE Device Contraindication: N/A - Device Ordered VTE Drug Contraindication: N/A - Med Ordered
[2023-10-09 16:14] LABS: Glucose, Whole Blood 322 mg/dL (60-115)
[2023-10-09] MEDS: Insulin Lispro 100 UNIT/ML 3 ML VIAL SUBCUT ×2 (16:55→20:29)
[2023-10-09] MEDS: rOPINIRole HCL 0.5 MG TABLET PO (20:29)
[2023-10-09] MEDS: Atorvastatin Calcium 80 MG TABLET PO (20:29)
[2023-10-09 20:40] LABS: Glucose, Whole Blood 164 mg/dL (60-115)
[2023-10-09] MEDS: Melatonin 3 MG TABLET 6 MG PO (23:05)
[2023-10-10] VITALS (8 sets, daily range): BP systolic 100–140; BP diastolic 52–64; PULSE 84–105; RESP 16–20; TEMP 35.9–36.9; O2SAT 90–97
[2023-10-10] MEDS: Omeprazole 20 MG CAPSULE.DR PO (06:36)
[2023-10-10 07:10] LABS: Glucose, Whole Blood 66 mg/dL (60-115)
[2023-10-10 07:43] LABS: Glucose, Whole Blood 126 mg/dL (60-115)
[2023-10-10] MEDS: Fluticasone/Umeclidinium/Vilanterol 200/62.5/25 BLST.W.DEV 1 PUFF INHALE (08:16)
[2023-10-10] MEDS: Albuterol/Iprat 2.5/0.5MG 3 ML AMPUL.NEB INHALE ×3 (08:16→15:09)
[2023-10-10] MEDS: Folic Acid 1 MG TABLET PO (08:26)
[2023-10-10] MEDS: Gabapentin 300 MG CAPSULE PO (08:26)
[2023-10-10] MEDS: Furosemide 20 MG TABLET PO (08:26)
[2023-10-10] MEDS: Insulin Glargine,Hum.rec.anlog 100 UNIT/ML 10 ML VIAL 15 UNIT SUBCUT (08:26)
[2023-10-10] MEDS: levoFLOXacin 750 MG TABLET PO (08:26)
[2023-10-10] MEDS: predniSONE 10 MG TABLET PO (08:26)
[2023-10-10] MEDS: Tamsulosin HCL 0.4 MG CAPSULE PO (08:26)
[2023-10-10] MEDS: Metoprolol Tartrate 12.5 MG HALFTAB PO (08:26)
[2023-10-10] MEDS: Apixaban 5 MG TABLET PO (08:26)
[2023-10-10 11:14] LABS: Glucose, Whole Blood 139 mg/dL (60-115)
--- NOTE | 2023-10-10 12:14 | P.DS_ITS ---
DS: Providers Provider Date of Service: 10/10/23 Date of admission: 09/25/23 22:26 Primary care physician: Sivakumar Drake MD Consults: 09/29/23 10:27 Consult for Sitter Routine Reason for consultation: agitation/safety 10/03/23 11:31 Consult to Pulmonology Routine Consulting Provider: [facility] Reason for consultation: persistent hypoxia Has provider been notified: No 10/03/23 23:18 Consult to Wound Care Routine Reason for consultation: open area/ redness coccyx DS: Diagnosis Discharge Diagnosis (1) COPD (chronic obstructive pulmonary disease): Status: Acute DS: Summary Hospital Course Hospital Course: 73-year-old male with a past medical history of ? COPD ( on 2 L at home),? diabetes mellitus,? congestive heart failure,? CAD, hypertension, paroxysmal A Fib (on Eliquis), and substance (cocaine) abuse? who presented to the emergency room for dyspnea.? Patient reported fall while exiting the car after? visiting pulmonary office,? patient reported he ran out of oxygen at home for unknown amount of time. According to the daughter the patient has had increased amount of confusion send the past 2 weeks.? ?On arrival to the emergency room patient required? patient hypoxic,? requiring 100% on non-rebreather and tachypneic.?? ?Laboratory data significant for? chloride 75, serum bicarb 42, anion gap 27, 120, creatinine? 1.7, random glucose 232,? beta? hydroxybutyrate? 1.42..? Initial lactic was 4,? 2 hours later 2.5? and later up to 5.2.? ?ABG:? 7. 46/89/58/63? later? 7.36/102/76/50? ED course:? ?Patient received a total of a 1L bolus, Solu-Medrol, 7.5 albuterol x 2,? Zosyn and 80 of Lasix.? Placed on BiPAP. Hospital course: Patient was admitted for acute on chronic hypoxemic respiratory failure with hypercarbia: Secondary to COPD, aspiration pneumonia: Requiring BiPAP and ICU level of care on 09/25 and downgraded to the medical floor the following day 09/26. workup-cta: cta negative for pulm embolism ,has emsematous changes- Patient was given IV steroids, antibiotics, oxygen support: Patient seems to be improved significantly now patient is on his baseline home oxygen and steroids also tapered, completed antibiotics,blood cultures negative. Patient mental status is at his baseline. Leukocytosis similar likely due to steroid use, no fever or shortness of breath.patient uses home oxygen 2 liters. Discussed with the Pulmonary: Currently no indication for bronchoscopy, recommended to follow-up out patiently with Pulmonary. In addition patient was seen by speech and Swallow diet advanced to mechanical altered/ground(ndd2). tsh low as well as free t3 , free t4 fine : d/w endocrinology- thought to be related to steriod use:please repeat these labs once off steroids in 2 weeks. consider outpatient endocrinology evaluation if needed. Patient is currently asymptomatic. Isauro: improved with holding lasix ,now started back on low dose lasix , monitor renal function and electrolytes outpatient. hx of HFpEF: Patient is currently seems euvolemic, will continue 40 Lasix, he tolerated. Creatinine improving. Monitor renal function and electrolyte closely, CHF education given, if weight gain 2 lb or more in a week may need adjustment of Lasix outpatient. dm: fs flactuating -Hba1c 6.6 ,adjusted glipizide to 2.5 mg po bid,continue trulicity.will hold off lantus due to fs flactuating . moniter fs and adjust dm meds outpatient. moniter cbc ,bmp outpatient ,follow up with pulmonary outpatient. Patient will be going home with home VNA, PT, speech. Patient refused to go to rehab. plan: steriod taper prednisone 10 mg for 1 week, and then 5 mg for 1 week and stop. Also need to follow up with Pulmonary outpatient . HFpEF: Patient is currently seems euvolemic, will continue 40 Lasix, he tolerated,Monitor renal function and electrolyte closely, CHF education given, if weight gain 2 lb or more in a week may need adjustment of Lasix outpatient. dm: fs flactuating -Hba1c 6.6 ,adjusted glipizide to 2.5 mg po bid,continue trulicity.will hold off lantus due to fs flactuating . moniter fs and adjust dm meds outpatient. tsh low as well as free t3 , free t4 fine : d/w endocrinology- thought to be related to steriod use:please repeat these labs once off steroids in 2 weeks. consider outpatient endocrinology evaluation if needed. Assessment and plan coordination time spent 70 minute, above plan discussed with the patient and his family in detail length. They understand and in agreement with above plan. Time Attestation Discharge coordination time: Greater than 30 minutes Quality: Safe Use of Opioids Does Pt have an Active Cancer Diagnosis on the Problem List?: No Quality: Stroke Does the patient have a stroke diagnosis?: No Physical Exam Vital Signs: Vital Signs: Last Vital Signs Temp 97.4 F 10/10/23 11:38 Pulse 96 10/10/23 11:38 Resp 18 10/10/23 11:38 BP 100/52 L 10/10/23 11:38 Pulse Ox 93 10/10/23 11:38 O2 Del Method Nasal Cannula 10/10/23 11:38 O2 Flow Rate 3 10/10/23 11:38 FiO2 65 10/05/23 11:24 Oxygen Flow Rate 15 09/25/23 16:58 BMI result Body Mass Index 23.8 General: AO X 3, no acute distress Resp: CTA bilateral CVS: S1,S2,RRR GI: +BS, NT, no distention Skin: cold hand Neuro: motor grossly intact Psych: appropriate affect DS: Data Data Completed and Pending Labs on day of discharge: Laboratory Results - last 24 hr 10/09/23 10/09/23 10/10/23 15:59 20:23 07:06 POC Glucose 322 H 164 H 66 10/10/23 10/10/23 07:39 11:10 POC Glucose 126 H 139 H Imaging Chest x-ray: Radiologist's impression: ITS Impressions Chest X-Ray 09/25/23 17:55 IMPRESSION: Question small infiltrate at the right lung base. Abdomen/Pelvis CT 09/25/23 23:30 IMPRESSION: No evidence for pulmonary embolism. Diffuse emphysema/COPD. Small amount of debris within the lower trachea. Bilateral lower lobe bronchial opacification. There is significant left lower lobe consolidation suggesting atelectasis and/or infiltrate. Right middle lobe opacity likely atelectasis. Cholelithiasis. The appendix is prominent in size measuring up to 1 cm but does contain air to the tip and there is no associated periappendiceal infiltration. Clinical correlation and follow-up is needed. Fleischner guidelines were followed. Chest CTA 09/25/23 23:30 IMPRESSION: No evidence for pulmonary embolism. Diffuse emphysema/COPD. Small amount of debris within the lower trachea. Bilateral lower lobe bronchial opacification. There is significant left lower lobe consolidation suggesting atelectasis and/or infiltrate. Right middle lobe opacity likely atelectasis. Cholelithiasis. The appendix is prominent in size measuring up to 1 cm but does contain air to the tip and there is no associated periappendiceal infiltration. Clinical correlation and follow-up is needed. Fleischner guidelines were followed. Head CT 09/26/23 17:00 IMPRESSION: 1. No evidence of acute intracranial hemorrhage or edematous territorial infarction. 2. Mild underlying microangiopathy and generalized cerebral volume loss. Chronic appearing lacunar infarcts of the deep nuclei. Chest X-Ray 09/27/23 07:53 IMPRESSION: No active cardiopulmonary disease Discharge Plan Discharge Anticipated Discharge Date/Time: 10/10/23 11:24 Patient Disposition: Home Health Service Discharge Diagnosis: copd excerebation and aspirational pneumonia Referrals: Physician,Unknown J [Physician] - 1 Week Discharge Medications: New prednisone 10 mg tablet See Taper PO DAILY Qty: 11 0RF Taper: Prednisone 10 mg daily for 7 Days and 0 Hour 5 mg daily for 7 Days and 0 Hour Continued atorvastatin 80 mg tablet 80 mg PO BEDTIME 90 Days Qty: 90 1RF gabapentin 300 mg capsule 300 mg PO DAILY Qty: 30 1RF pantoprazole 40 mg tablet,delayed release (DR/EC) 40 mg PO DAILY Qty: 90 4RF metoprolol tartrate 25 mg tablet 12.5 mg PO BID Qty: 90 3RF furosemide 80 mg tablet 40 mg PO DAILY@1300 Eliquis 5 mg tablet 5 mg PO BID Qty: 180 4RF ropinirole 0.5 mg tablet 0.5 mg PO BEDTIME Qty: 90 3RF (DME) blood-glucose meter [FreeStyle Lite Meter] Kit See Rx Instructions .ROUTE .MEDSUPPLY Qty: 1 0RF Rx Instructions: DX: E11.9, test blood sugar 2 times a day, duration 999 days (DME) FreeStyle Lite Strips Strip See Rx Instructions .ROUTE .MEDSUPPLY Qty: 200 4RF Rx Instructions: DX: E11.9, test blood sugar 2 times a day, 90 days (DME) lancets [FreeStyle Lancets] 28 gauge misc See Rx Instructions .ROUTE .MEDSUPPLY Qty: 200 4RF Rx Instructions: As directed dulaglutide 1.5 mg/0.5 mL pen injector 1.5 mg subcut QWEEK 28 Days Qty: 2 3RF amlodipine 2.5 mg tablet 2.5 mg PO DAILY 90 Days Qty: 90 1RF ferrous sulfate 325 mg (65 mg iron) tablet 325 mg PO Q OTHER DAY 30 Days Qty: 15 6RF ascorbate calcium (vitamin C) 500 mg tablet 500 mg PO DAILY 30 Days Qty: 30 6RF Trelegy Ellipta 200-62.5-25 mcg blister with device 1 inh inhalation DAILY Qty: 60 0RF ipratropium-albuterol 0.5 mg-3 mg(2.5 mg base)/3 mL solution for nebulization 3 ml inhalation BID PRN (Reason: wheezing) Qty: 180 0RF Changed glipizide 10 mg tablet 2.5 mg PO QAM 90 Days Qty: 90 2RF Rx Instructions: NEEDS AN APPT Discontinued quetiapine 25 mg tablet 50 mg PO BEDTIME Qty: 30 2RF zolpidem [Ambien] 5 mg tablet 5 mg PO BEDTIME PRN (Reason: sleep) 30 Days Qty: 30 0RF furosemide 80 mg tablet 80 mg PO DAILY Rx Instructions: 1 tablet in the morning, 1/2 tablet in the afternoon PO 2 times a day; prednisone 20 mg tablet 40 mg PO DAILY Qty: 10 0RF doxycycline hyclate 100 mg capsule 100 mg PO BID Qty: 20 0RF Discharge Orders: Discharge Order (Routine); Ordered 10/10/23 Ordered By: Derrick Romero Diet: Advance to usual diet Activity on Discharge: As tolerated Stand Alone Forms: Patient Portal Discharge page Care Plan Goals: Patient was admitted for acute on chronic hypoxemic respiratory failure with hypercarbia: Secondary to COPD, aspiration pneumonia: Requiring BiPAP and ICU level of care on 09/25 and downgraded to the medical floor the following day 09/26. Patient was given IV steroids, antibiotics, oxygen support: Patient seems to be improved significantly now patient is on his baseline home oxygen and steroids also tapered, completed antibiotics. Patient mental status is at his baseline. Leukocytosis similar likely due to steroid use, no fever or shortness of breath.patient uses home oxygen 2 liters. Discussed with the Pulmonary: Currently no indication for bronchoscopy, recommended to follow-up out patiently with Pulmonary. In addition patient was seen by speech and Swallow diet advanced to mechanical altered/ground(ndd2). tsh low as well as free t3 , free t4 fine : d/w endocrinology- please repeat these labs once off steroids in 2 weeks. consider outpatient endocrinology evaluation if needed. Isauro: improved with holding lasix ,now started back on low dose lasix , monitor renal function and electrolytes outpatient. hx of HFpEF: Patient is currently seems euvolemic, will continue 40 Lasix, he tolerated. Creatinine improving. Monitor renal function and electrolyte closely, CHF education given, if weight gain 2 lb or more in a week may need adjustment of Lasix outpatient. dm: fs flactuating -Hba1c 6.6 ,adjusted glipizide to 2.5 mg po bid,continue trulicity.will hold off lantus due to fs flactuating . moniter fs and adjust dm meds outpatient. moniter cbc ,bmp outpatient ,follow up with pulmonary outpatient. Patient will be going home with home VNA, PT, speech. Patient refused to go to rehab. Health Concerns: as above. Plan of Treatment: as above. Assessment: as above.
--- NOTE | 2023-10-10 12:23 | P.F2F_ITS ---
Service Date Service Date: 10/10/23 Encounter Date of encounter: 10/10/23 Encounter: copd ,Hfpef ,aspirational pneumonia Reasons for Services Signs and symptoms assessed: New worsening of shortness of breath or fever or new symptoms Reason for residential: CV/CP assess and/or care, diabetic teaching, monitoring of unstable blood sugar, medication management, medication treatment and teach disease management Reason for physical therapy: home safety and mobility, therapeutic exercises, restore joint function, gait/transfer training, assess need for DME, ADL training, energy conservation and other Reason for speech therapy: swallowing impairment, speech impairment, cognitive impairment and other MD Overseeing Care: Sivakumar Drake Homebound: Leaving the home is medically contraindicated at this time without the asist of a device and/or another person due th the listed conditions above and below. Reason homebound: weakness related to hospital stay Homebound supporting statement: Patient is generalized weak has multiple comorbidities including COPD, CHF, aspiration pneumonia-generalized weak post hospitalization stay, need help with labs, appointments and PT/speech. Certification: Based on the above findings, I certify that this patient is confined to the home and needs intermittent residential care, physical therapy and/or speech therapy, or continues to need occupational therapy. The patient is under my care, and I have initiated the establishment of the plan of care. The patient will be followed by a physician who will periodically review the plan of care. Time Spent With Patient Time: Total time managing care of this patient today ____ minutes.
--- NOTE | 2023-10-10 12:54 | MHC.CM.PN ---
Addendum entered by Aracelis Sánchez RN 10/10/23 14:43: pt to dc w/catheter, wound care supplies and offloading cushion, simg will review dc paperwork when dtr Felisha comes. Original Note: IMM 10/10/2023 DELIVERED TO BEDSIDE, PT MEDICALLY CLEARED TO DC, PT DECLINING STR AND WILL DC HOME W/[facility]NA FOR SN/SPEECH/HOME PT, PT WILL DC W/MEEKS CATHETER HE HAS FAILED 4 VOIDING TRIALS., ONE OF PT'S DTRS WILL TRANSPORT AT 2:30PM.
--- NOTE | 2023-10-10 13:29 | MHC.SL.SWA ---
Speech Pathologist Impression: Risk of Aspiration Due to: History of Pneumonia Reduced Cognition Weak Voice Dysphasia Diet Status: During Hospital stay, patient was on Ground Mechanical Altered (NDD2) and advanced to THIN liquids, pills crushed in puree. Patient is pending dc, and is recommended patient advance to his typical diet, although advised to elect primarily softer foods and avoid foods that are difficult to chew, or break apart into small pieces (equivalent of a chopped diet). Liquid Consistency and Strategies for Safe Swallow: Liquid Intake Recommendation: Thin Liquid Intake Strategies: Small Sips Solid Food Consistency: Dietary Recommendations: Grnd/Mech Altered (NDD2) Additional Modifications to Solid Foods: Oral Medication Intake: Crushed with Puree Please contact the pharmacy regarding appropriate crushable or liquid drug formulations that are available whenever modified delivery is recommended. Compensatory Strategies and Precautions to be Taken for Safe Swallow: Sitting Upright (90 deg) No Straw Small Bites and Sips Alternate Liquids/Solids Rate of Ingestion Change Oral Check Avoid Specific Foods Supervision While Eating and Drinking for Safe Swallow: Total Supervision (1:1) Foods to Avoid: Mixed textures, hard to chew solids Swallowing Recommended Treatments: Compens. Strategy Educat. Recommendation for Speech: Inpatient Speech Therapy Comment: Pt seen for dysphagia tx late morning. Pt awake and alert, sitting beside bed in Cardiac Chair. Patient was greeting in Mongolian but responded in Ukrainian, and communicated in Ukrainian. Patient was very pleasant and talkative today, aware he was going home this afternoon with his Daughter. Patient was offered Upper Sor[place] Ice, which he was delighted by, and was observed independently taking tsp amounts, producing a timely swallow, with no clinical signs of aspiration. Patient was additionally observed taking sips of liquid by straw, again with a timely swallow, no clinical signs of aspiration. RT arrived to do treatment so no additional foods were attempted at this visit. However patient is likely able to advance at this point to his typical diet, although advised to elect primarily softer foods, avoid foods that a difficulty to chew, or break apart into small pieces, which was discussed with the patient. Frequency/Duration: PRN M-F Date Range for Service Req: Timeline to reassess: 2Nd Pressman Clinican/Clinical Fellow: No Supervisory Statement: I have reviewed and agree with the student/clinical fellow's documentation: N/A Speech Language Pathologist: Aracelis Valencia M.A., CCC-USER INTERFACE DESIGNER
--- NOTE | 2023-10-10 14:24 | PC.NURSE ---
Pt alert to self and place. WALKER to command 5/5 sensation intact. OOB to chair in am seen by PT. Denies pain/discomfort creams applied to buttocks. Olmos cath with clear yellow urine. Awaiting Urology consult. POC this am 66 patient awake alert orange juice given, Dr Romero notified repeat POC was 126. Plan for discharge to home with family after consult. Will continue to monitor and report changes
--- NOTE | 2023-10-10 14:42 | HO.WOUND ---
Wound Consult:Follow up 73yr old [place] [facility] [place]09[place]25/23 22:26 - See progress notes and H&P for detailed history. Request from provider to detail topical recommendations for VNA services. Details added to discharge page in electronic record. Sacrum Etiology: Deep Tissue Injury in Evolution Goals of Treatment: ? Off Load Pressure - Triad followed by foam dressing - to allow for autolytic moist wound healing and protect from friction and moisture Recommendations: 1. Turn and Reposition every 2 hours and as needed for patient comfort consider, Limit sit time to 1-2 hr increments, use chair cushion when up to chair. 2. Off Load all bony prominences with use of pillows. 3. Monitor for incontinence and moisture control. 4. Provide adequate and supplemental nutrition. 5. Order or Continue low air loss mattress. 6. Maintain blood glucose levels per Providers orders. 7. Sacrum - Off Load Pressure - Cleanse with PH balance spray, pat dry. ?Apply thin layer of Triad to wound bed - only pat and dab no scrub and rub when soiling occurs. Cover with Foam dressing. Change daily. Re-consult wound care Nurse for wound deterioration or wound changes.
--- NOTE | 2023-10-10 15:09 | W.MHC.F2F ---
Service Date Service Date: 10/10/23 Encounter Date of encounter: 10/10/23 Encounter: copd ,Hfpef ,aspirational pneumonia Reasons for Services Signs and symptoms assessed: New worsening of shortness of breath or fever or new symptoms Reason for custodial: CV/CP assess and/or care, wound care, diabetic teaching, monitoring of unstable blood sugar, medication management, medication treatment, teach disease management and GI/ assessment (catheter beck care -18French catheter,) Reason for physical therapy: home safety and mobility, therapeutic exercises, restore joint function, gait/transfer training, assess need for DME, ADL training, energy conservation and other Reason for speech therapy: swallowing impairment, speech impairment, cognitive impairment and other MD Overseeing Care: Sivakumar Drake Homebound: Leaving the home is medically contraindicated at this time without the asist of a device and/or another person due th the listed conditions above and below. Reason homebound: weakness related to hospital stay Homebound supporting statement: Patient is generalized weak has multiple comorbidities including COPD, CHF, aspiration pneumonia-generalized weak post hospitalization stay, need help with labs, appointments and PT/speech, wound care and beck catheter care(please see beck care in discharge instructions) Certification: Based on the above findings, I certify that this patient is confined to the home and needs intermittent custodial care, physical therapy and/or speech therapy, or continues to need occupational therapy. The patient is under my care, and I have initiated the establishment of the plan of care. The patient will be followed by a physician who will periodically review the plan of care. Time Spent With Patient Time: Total time managing care of this patient today ____ minutes.
--- NOTE | 2023-10-10 15:51 | PM.UROCN ---
History of Present Illness Consult details Consult date: 10/10/23 Narrative: cc: Urinary retention 73-year-old male Admit to hospital 09/25/23 with COPD exacerbation Olmos catheter placed 10/07 after voiding trial failure with 500 cc residual Start Flomax and finasteride Follow-up in 2 weeks for voiding trial in office Review of Systems Constitutional: Constitutional: Reports as per HPI and Reports no additional constitutional complaints Cardiovascular: Cardiovascular: Reports as per HPI and Reports no additional cardiovascular complaints Respiratory: Respiratory: Reports as per HPI and Reports no additional respiratory complaints Gastrointestinal: Gastrointestinal: Reports as per HPI and Reports no additional gastrointestinal complaints Genitourinary: Genitourinary: Reports as per HPI Musculoskeletal: Musculoskeletal: Reports no additional musculoskeletal complaints and Reports as per HPI Neurologic: Reports system reviewed and no additional complaints, except as documented and Reports as per HPI PMFSH Past Medical History Medical History Cocaine use Stroke Chronic heart failure with preserved ejection fraction Atherosclerotic cardiovascular disease Paroxysmal atrial fibrillation History of non-ST elevation myocardial infarction (NSTEMI) Essential hypertension Sinus bradycardia Type 2 diabetes mellitus COPD (chronic obstructive pulmonary disease) Smoker Family History Family History Father No problems noted. Mother Heart attack Surgical History Surgical History (Updated 10/03/23 @ 13:01 by Yany Dietrich PA-C) History of colonoscopy History of cardioversion (~10/2018) History of coronary artery bypass graft x 3 (~10/2016) Social History Social History Household Members: Children Household Members Other:: LIVES WITH SON Housing: Apartment Unable to assess alcohol history related to: Unknown Alcohol intake: never Patient Tobacco Use Status: Tobacco use Unknown Cigarette Packs Per Day: 2 Cigarettes Per Day: 40 Years Smoked: 60 +/- e-Cigarette/Vaping Use: Never Used Second Hand Smoke Exposure: No Substance Use Type: Crack/Cocaine and Other service: No Current occupational status: retired Current occupational exposures/hazards: No Cognitive needs: No Hearing needs: No Vision needs: No Meds Allergies Allergy/AdvReac Type Severity Reaction Status Date / Time No Known Allergies Allergy Verified 09/25/23 14:31 [No Known Allergies*] Active Medications: Current Medications Albuterol/Ipratropium (Albuterol/Iprat 2.5/0.5mg 3 Ml Ampul.Neb) 3 ml INHALE RQID [facility] Last Admin: 10/10/23 15:09 Dose: 3 ml Apixaban (Apixaban 5 Mg Tablet) 5 mg PO BID [facility] Last Admin: 10/10/23 08:26 Dose: 5 mg Atorvastatin Calcium (Atorvastatin Calcium 80 Mg Tablet) 80 mg PO BEDTIME [facility] Last Admin: 10/09/23 20:29 Dose: 80 mg Dextrose (Dextrose 50 % 25 Gm/50 Ml Syringe) 25 gm IVPUSH Q30M PRN PRN Reason: BG < 70 Fluticasone/Umeclidinium/Vilanterol (Fluticasone/Umeclidinium/Vilanterol 200/62.5/25 Blst.W.Dev) 1 puff INHALE RDAILY [facility] Last Admin: 10/10/23 08:16 Dose: 1 puff Folic Acid (Folic Acid 1 Mg Tablet) 1 mg PO DAILY [facility] Last Admin: 10/10/23 08:26 Dose: 1 mg Furosemide (Furosemide 20 Mg Tablet) 20 mg PO BID@0900,1800 [facility]; Protocol Last Admin: 10/10/23 08:26 Dose: 20 mg Gabapentin (Gabapentin 300 Mg Capsule) 300 mg PO DAILY [facility] Last Admin: 10/10/23 08:26 Dose: 300 mg Insulin Glargine (Insulin Glargine,Hum.Rec.Anlog 100 Unit/Ml 10 Ml Vial) 15 unit SUBCUT DAILY [facility] Last Admin: 10/10/23 08:26 Dose: 15 unit Insulin Human Lispro (Insulin Lispro 100 Unit/Ml 3 Ml Vial) 0 unit SUBCUT QIDACHS [facility]; Protocol Last Admin: 10/10/23 11:48 Dose: Not Given Melatonin (Melatonin 3 Mg Tablet) 6 mg PO BEDTIME PRN PRN Reason: Insomnia Last Admin: 10/09/23 23:05 Dose: 6 mg Metoprolol Tartrate (Metoprolol Tartrate 12.5 Mg Halftab) 12.5 mg PO BID [facility]; Protocol Last Admin: 10/10/23 08:26 Dose: 12.5 mg Omeprazole (Omeprazole 20 Mg Capsule.Dr) 20 mg PO DAILY@0630 [facility] Last Admin: 10/10/23 06:36 Dose: 20 mg Prednisone (Prednisone 10 Mg Tablet) 10 mg PO DAILY [facility] Last Admin: 10/10/23 08:26 Dose: 10 mg Ropinirole HCl (Ropinirole Hcl 0.5 Mg Tablet) 0.5 mg PO BEDTIME [facility] Last Admin: 10/09/23 20:29 Dose: 0.5 mg Tamsulosin HCl (Tamsulosin Hcl 0.4 Mg Capsule) 0.4 mg PO DAILY [facility] Last Admin: 10/10/23 08:26 Dose: 0.4 mg Home Medications Medication Instructions Recorded Confirmed Last Taken Type furosemide 80 mg tablet 40 mg PO DAILY@1300 09/25/23 09/25/23 Unknown History Physical Exam Vital Signs: Vital Signs: Last Vital Signs Temp 96.6 F L 10/10/23 15:34 Pulse 105 H 10/10/23 15:34 Resp 20 10/10/23 15:34 BP 116/64 10/10/23 15:34 Pulse Ox 90 L 10/10/23 15:34 O2 Del Method Nasal Cannula 10/10/23 15:34 O2 Flow Rate 4 10/10/23 15:34 FiO2 65 10/05/23 11:24 Oxygen Flow Rate 15 09/25/23 16:58 BMI result Body Mass Index 23.8 Const: General: cooperative, healthy appearing, comfortable and no acute distress Orientation/consciousness: patient oriented x3 HEENT: Face and sinus: Yes normal facial exam Mouth: moist mucous membranes Neck: Neck: Yes normal visual inspection, Yes full ROM and Yes trachea midline Chest: Chest palpation & inspection: normal inspection of the chest Resp: Effort & Inspection: normal respiratory effort, able to speak in complete sentences and no respiratory distress GI: Inspection: Yes normal to inspection Back/Spine/Pelvis: Cervical Spine: normal cervical lordosis Thoracic/Lumbar Spine: thoracic and lumbar spine normal to inspection Skin: General skin exam: no rashes or lesions noted Neuro: General: patient oriented x3, tone normal and moves all extremities Extrem: General: Yes normal to inspection and Yes capillary refill normal Results Labs 10/07/23 05:52 10/09/23 08:55 Labs: Abnormal lab results 10/09/23 10/09/23 10/10/23 Range/Units 15:59 20:23 07:39 POC Glucose 322 H 164 H 126 H (60-115) mg/dL 10/10/23 Range/Units 11:10 POC Glucose 139 H (60-115) mg/dL Urine 09/26/23 Range/Units 00:23 Urine Color Yellow Urine Appearance Clear Urine pH 5.5 (5.0-9.0) Ur Specific [place] 1.015 (1.005-1.025) Urine Protein Trace (Neg-Trace) mg/dL Urine Glucose (UA) Negative (Negative) mg/dL All other labs normal. Assessment and Plan (1) Urinary retention with incomplete bladder emptying: Status: Acute Plan Two week follow-up voiding trial Optimize medications Procedures Date of Service Date of Service: 10/10/23
[2023-10-10 16:13] LABS: Glucose, Whole Blood 215 mg/dL (60-115)
[2023-10-10] MEDS: Insulin Lispro 100 UNIT/ML 3 ML VIAL SUBCUT (16:20)
--- NOTE | 2023-10-16 10:09 | P.CDIM_ITS ---
PROVIDER RESPONSE TEXT: To clarify, the appropriate diagnosis supported by the clinical indicators: Encephalopathy: metabolic QUERY TEXT: PHYSICIAN'S DOCUMENTATION REQUEST Date of Query: 10/08/2023 07:18 AM EST Patient Name: Josh Vigil Admit Date: 09/26/2023 Dear Aj Vinson, A review of the medical record indicates additional documentation may be needed. Please review below and update the documentation accordingly. Clinical Indicators: Per Hospitalist Progress Note 10/07/23: noted to have confusion ongoing for unclear period of time, at least several weeks Encephalopathy vs Dementia brain CT negative for acute changes, showing microangiopathy and generalized volume loss as well as c hronic appearing lacunar infarcts improved. patient awake and oriented and able to answer questions appropriately. seems to be at baseline Based on the above, could you clarify if any of the following, is the most likely etiology of the con fusion/altered mental status? Encephalopathy Indicate type such as metabolic, toxic, septic, alcoholic, hypertensive, etc. Dementia Indicate type of dementia, such as Alzheimer's, senile, vascular, Lewy body, etc. Acute delirium Indicate known or suspected etiology, such as postoperative, due to narcotics or other drugs, etc. Baseline dementia Indicate type, such as Alzheimer's, senile, vascular, Lewy body, etc., and any associated behavioral disturbances (aggressive, combative, or violent behavior) Acute or subacute confusional state due to Specify known or suspected etiology Other (explain) Clinically unable to determine (explain) Thank you, Eloisa Nelson RN Use of terms such as suspected, likely, concern for, or probable (associated with a specific diagnosi s that is being evaluated, monitored, or treated as if it exists) are acceptable and can be coded in the inpatient se tting, when documented at the time of discharge. Please use your independent medical judgment in providing your response. THIS QUERY IS PART OF THE PERMANENT MEDICAL RECORD
== END 2023-10-10 17:53 | disposition home health service (06) | DRG 177 ==
LOC: HO.ED 17:28 → HO.EDOVER 22:32 → HO.ICU 23:00 → HO.IMC 09-26 16:00
PROVIDERS: Hospitalist; Internal Medicine; Internal Medicine Pulmonary Disease; Nurse Practitioner Acute Care; Physician Assistant Medical; Admitting Provider Registered Nurse Community Health; Emergency Provider Student in an Organized Health Care Education/Training Program; PCP Family Medicine; Visit Provider Internal Medicine
DX: J69.0 Pneumonitis due to inhalation of food and vomit (principal); G93.41 Metabolic encephalopathy; I50.33 Acute on chronic diastolic (congestive) heart failure; J96.21 Acute and chronic respiratory failure with hypoxia; J96.22 Acute and chronic respiratory failure with hypercapnia; I13.0 Hypertensive heart and chronic kidney disease with heart failure and stage 1 through stage 4 chronic kidney disease, or unspecified chronic kidney disease; N17.9 Acute kidney failure, unspecified; E87.21 Acute metabolic acidosis; N18.30 Chronic kidney disease, stage 3 unspecified; I25.10 Atherosclerotic heart disease of native coronary artery without angina pectoris; I48.0 Paroxysmal atrial fibrillation; E11.65 Type 2 diabetes mellitus with hyperglycemia; R13.10 Dysphagia, unspecified; E87.6 Hypokalemia; J43.9 Emphysema, unspecified; E11.22 Type 2 diabetes mellitus with diabetic chronic kidney disease; E05.90 Thyrotoxicosis, unspecified without thyrotoxic crisis or storm; R33.9 Retention of urine, unspecified; Z20.822 Contact with and (suspected) exposure to COVID-19; Z86.73 Personal history of transient ischemic attack (TIA), and cerebral infarction without residual deficits; Z99.81 Dependence on supplemental oxygen; Z95.1 Presence of aortocoronary bypass graft; Z79.01 Long term (current) use of anticoagulants; Z79.51 Long term (current) use of inhaled steroids; Z79.84 Long term (current) use of oral hypoglycemic drugs; Z79.899 Other long term (current) drug therapy
CPT/HCPCS: 36415; 36600; 70450; 71045; 71275; 74177; 80048; 80053; 80076; 80307; 81003; 82010; 82040; 82607; 82746; 82803; 82947; 83036; 83605; 83735; 83880; 84100; 84439; 84443; 84481; 85025; 85027; 85610; 87040; 87633; 87635; 87640; 87641; 92526; 92610; 93005; 93306; 94640; 94660; 97161; 97530; 99202; 99285; C1758; J0456; J1940; J1956; J2359; J2543; J2920; J2930; J3475; Q9957; Q9967

== ENCOUNTER 2023-09-25 22:26 | Outpatient (BNV) | payer MEDICARE, MEDICAID, SELFPAY | END 2023-09-30 07:00 | PROVIDERS: Admitting Provider Registered Nurse Community Health; Emergency Provider Student in an Organized Health Care Education/Training Program; Visit Provider Internal Medicine Cardiovascular Disease | DX: I34.81 Nonrheumatic mitral (valve) annulus calcification (principal) | CPT/HCPCS: 93306 ==

== ENCOUNTER → 2023-09-25 22:26 | Outpatient (BNV) | payer MEDICARE, MEDICAID, SELFPAY | PROVIDERS: Admitting Provider Registered Nurse Community Health; Emergency Provider Student in an Organized Health Care Education/Training Program; Visit Provider Registered Nurse Community Health | DX: J96.01 Acute respiratory failure with hypoxia (principal); J96.02 Acute respiratory failure with hypercapnia; J44.1 Chronic obstructive pulmonary disease with (acute) exacerbation; E11.10 Type 2 diabetes mellitus with ketoacidosis without coma; I50.9 Heart failure, unspecified; N17.9 Acute kidney failure, unspecified | CPT/HCPCS: 99291 ==

== ENCOUNTER → 2023-09-25 22:26 | Outpatient (BNV) | payer MEDICARE, MEDICAID, SELFPAY | PROVIDERS: Admitting Provider Registered Nurse Community Health; Emergency Provider Student in an Organized Health Care Education/Training Program; Visit Provider Internal Medicine Pulmonary Disease | DX: J96.01 Acute respiratory failure with hypoxia (principal); J96.02 Acute respiratory failure with hypercapnia; J44.9 Chronic obstructive pulmonary disease, unspecified; I50.32 Chronic diastolic (congestive) heart failure; T17.900A Unspecified foreign body in respiratory tract, part unspecified causing asphyxiation, initial encounter | CPT/HCPCS: 99232; 99291 ==

== ENCOUNTER → 2023-09-25 22:26 | Outpatient (BNV) | payer MEDICARE, MEDICAID, SELFPAY | PROVIDERS: Admitting Provider Registered Nurse Community Health; Emergency Provider Student in an Organized Health Care Education/Training Program; PCP Family Medicine; Visit Provider Urology | DX: R33.9 Retention of urine, unspecified (principal) | CPT/HCPCS: 99232 ==

== ENCOUNTER → 2023-09-25 22:26 | Outpatient (BNV) | payer MEDICARE, MEDICAID, SELFPAY | PROVIDERS: Admitting Provider Registered Nurse Community Health; Emergency Provider Student in an Organized Health Care Education/Training Program; Visit Provider Physician Assistant Medical | DX: J44.9 Chronic obstructive pulmonary disease, unspecified (principal) | CPT/HCPCS: 99231; 99232; 99233; 99239; G0180 ==

== ENCOUNTER 2023-10-12 20:27 | Emergency (ER) | payer MEDICARE, MEDICAID, SELFPAY ==
[2023-10-12 20:41] VITALS: BP 116/54; BP 120/54; PULSE 51; PULSE 80; RESP 16; TEMP 36.6; O2SAT 98; BMI 23.7
[2023-10-12 22:12] VITALS: BP 134/53; PULSE 81; RESP 18; TEMP 36.5; O2SAT 97
--- NOTE | 2023-10-12 22:49 | ED_ITS ---
HPI - Male Genitourinary General Chief complaint: Urogenital-Male Stated complaint: BLOOD IN CATHETER Time Seen by Provider: 10/12/23 21:55 Source: patient Mode of arrival: EMS History of Present Illness HPI Narrative: 73-year-old male who is brought in by EMS and states that he went to the bathroom and then he had some difficulty getting off of the toilet and into his bad and that when he asked for help his family called EMS. He denies any falls. Related Data Home Medications Medication Instructions Recorded Confirmed furosemide 80 mg tablet 40 mg PO DAILY@1300 09/25/23 09/25/23 Previous Rx's Medication Instructions Recorded apixaban 5 mg tablet (Eliquis) 5 mg PO BID #180 tabs 09/12/22 ropinirole 0.5 mg tablet 0.5 mg PO BEDTIME #90 tabs 09/12/22 blood sugar diagnostic (FreeStyle #200 ea 03/07/23 Lite Strips) blood-glucose meter (FreeStyle #1 ea 03/07/23 Lite Meter kit) lancets 28 gauge (FreeStyle #200 ea 03/07/23 Lancets) ascorbate calcium (vitamin C) 500 500 mg PO DAILY 30 days #30 tabs 04/12/23 mg tablet ferrous sulfate 325 mg (65 mg 325 mg PO Q OTHER DAY 30 days #15 04/12/23 iron) tablet tabs atorvastatin 80 mg tablet 80 mg PO BEDTIME 3 months #90 tabs 04/24/23 gabapentin 300 mg capsule 300 mg PO DAILY #30 caps 05/30/23 dulaglutide 1.5 mg/0.5 mL 1.5 mg (0.5 mL) subcut QWEEK 28 09/05/23 subcutaneous pen injector days #2 mL metoprolol tartrate 25 mg tablet 12.5 mg (1/2 x 25 mg) PO BID #90 09/17/23 tabs pantoprazole 40 mg tablet,delayed 40 mg PO DAILY #90 tabs 09/17/23 release fluticasone fur. 200 mcg-umeclid 1 inh inhalation DAILY #60 ea 09/25/23 62.5 mcg-vilant 25 mcg inhalat.powder (Trelegy Ellipta) ipratropium 0.5 mg-albuterol 3 mg 3 ml inhalation BID PRN wheezing 09/25/23 (2.5 mg base)/3 mL nebulization #180 mL soln finasteride 5 mg tablet 5 mg PO DAILY BPH 30 days #30 tabs 10/10/23 glipizide 10 mg tablet 2.5 mg (1/4 x 10 mg) PO QAM 90 10/10/23 days #90 tabs prednisone 10 mg tablet See Taper PO DAILY copd #11 tabs 10/10/23 tamsulosin 0.4 mg capsule (Flomax) 0.4 mg PO BEDTIME #30 caps 10/10/23 Allergies Allergy/AdvReac Type Severity Reaction Status Date / Time No Known Allergies Allergy Verified 10/12/23 20:40 [No Known Allergies*] Review of Systems Review of Systems: Pertinent positives and negatives as stated in [facility] Past Medical History Source: nursing notes reviewed Medical History Cocaine use Stroke Chronic heart failure with preserved ejection fraction Atherosclerotic cardiovascular disease Paroxysmal atrial fibrillation History of non-ST elevation myocardial infarction (NSTEMI) Essential hypertension Sinus bradycardia Type 2 diabetes mellitus COPD (chronic obstructive pulmonary disease) Smoker Surgical History History of colonoscopy History of cardioversion (~10/2018) History of coronary artery bypass graft x 3 (~10/2016) Family History Family History Father No problems noted. Mother Heart attack Social History Social History Household Members: Children Household Members Other:: LIVES WITH SON Housing: Apartment Unable to assess alcohol history related to: Unknown Alcohol intake: never Patient Tobacco Use Status: Tobacco use Unknown Cigarette Packs Per Day: 2 Cigarettes Per Day: 40 Years Smoked: 60 +/- Smoked in Last 30 Days: No e-Cigarette/Vaping Use: Never Used Second Hand Smoke Exposure: No Use of substances other than those prescribed or required for medical reasons: No Substance Use Type: Crack/Cocaine and Other Advance Directives: No Advance Directives Information Provided: No service: No Current occupational status: retired Current occupational exposures/hazards: No Cognitive needs: No Hearing needs: No Vision needs: No Physical Exam Vital Signs: Vital Signs: Last Vital Signs Temp 97.7 F 10/12/23 22:12 Pulse 81 10/12/23 22:12 Resp 18 10/12/23 22:12 BP 134/53 L 10/12/23 22:12 Pulse Ox 97 10/12/23 22:12 O2 Del Method Room Air 10/12/23 22:12 BMI result Body Mass Index 23.7 VITAL SIGNS: Reviewed. GENERAL: Well developed, well nourished, in no acute distress. HEAD: Normocephalic/atraumatic EYES: PERRLA, EOMI EARS: Ext canals without abnormality NOSE: Nares patent bilateral OROPHARYNX: no oral lesions noted, posterior pharynx clear NECK: Supple, no adenopathy LUNGS: Normal breath sounds. No adventitious sounds or accessory muscle use. SpO2<97> on nasal cannula baseline CARDIOVASCULAR: Regular rate and rhythm without noted murmurs ABDOMEN: Soft, non-tender, non-distended with bowel sounds. : Patent draining clear yellow urine with mild presence of blood, no gross hematuria MUSCULOSKELETAL: No tenderness, deformities, or effusions noted on gross inspection. EXTREMITIES: No cyanosis, clubbing or edema. SKIN: Inspection of the skin reveals no rashes NEUROLOGIC: Alert and oriented x 4. Strength and sensation to light touch were grossly intact x 4. Medical Decision Making Medical Decision Making MDM Narrative: 73-year-old male with history and clinical presentation, and there does not appear to be any acute issues with the Olmos catheter. It is draining well and patient reports that he simply needed help getting into his bed. He is otherwise hemodynamically stable and denies any other complaints of shortness of breath, fevers, chills, chest pain, GI or symptoms. Differential Diagnosis Differential Diagnoses: The differential diagnosis associated with the presentation includes Please see the discussion above Admission/Observation Consideration of admission/observation: Escalation of care including admission/observation considered Please see the discussion above External Record Review External record reviewed: Outpatient record, Prior outpatient labs and Prior outpatient radiology Discharge Plan Discharge Clinical Impression: Malfunction of Olmos catheter Patient Disposition: Home, Self-Care Instructions: Olmos Catheter Placement and Care (ED) Additional Instructions: 1. Reanudar todos los medicamentos caseros seg?n lo recetado. 2. Ann un seguimiento con ly m?dico de atenci?n primaria el lunes por la ma?atiya. Regrese a la ashley de emergencias si los s?ntomas empeoran. 1. Resume all home medications as prescribed. 2. Please follow-up with primary care doctor on Saturday morning. Return to the ER for any worsening symptoms Prescriptions: No Action atorvastatin 80 mg tablet 80 mg PO BEDTIME 90 Days Qty: 90 1RF gabapentin 300 mg capsule 300 mg PO DAILY Qty: 30 1RF pantoprazole 40 mg tablet,delayed release (DR/EC) 40 mg PO DAILY Qty: 90 4RF metoprolol tartrate 25 mg tablet 12.5 mg PO BID Qty: 90 3RF furosemide 80 mg tablet 40 mg PO DAILY@1300 prednisone 10 mg tablet See Taper PO DAILY Qty: 11 0RF Taper: Prednisone 10 mg daily for 7 Days and 0 Hour 5 mg daily for 7 Days and 0 Hour glipizide 10 mg tablet 2.5 mg PO QAM 90 Days Qty: 90 2RF Rx Instructions: NEEDS AN APPT tamsulosin [Flomax] 0.4 mg capsule 0.4 mg PO BEDTIME Qty: 30 0RF finasteride 5 mg tablet 5 mg PO DAILY 30 Days Qty: 30 1RF Rx Instructions: Daily tablet Eliquis 5 mg tablet 5 mg PO BID Qty: 180 4RF ropinirole 0.5 mg tablet 0.5 mg PO BEDTIME Qty: 90 3RF (DME) blood-glucose meter [FreeStyle Lite Meter] Kit See Rx Instructions .ROUTE .MEDSUPPLY Qty: 1 0RF Rx Instructions: DX: E11.9, test blood sugar 2 times a day, duration 999 days (DME) FreeStyle Lite Strips Strip See Rx Instructions .ROUTE .MEDSUPPLY Qty: 200 4RF Rx Instructions: DX: E11.9, test blood sugar 2 times a day, 90 days (DME) lancets [FreeStyle Lancets] 28 gauge misc See Rx Instructions .ROUTE .MEDSUPPLY Qty: 200 4RF Rx Instructions: As directed dulaglutide 1.5 mg/0.5 mL pen injector 1.5 mg subcut QWEEK 28 Days Qty: 2 3RF ferrous sulfate 325 mg (65 mg iron) tablet 325 mg PO Q OTHER DAY 30 Days Qty: 15 6RF ascorbate calcium (vitamin C) 500 mg tablet 500 mg PO DAILY 30 Days Qty: 30 6RF Trelegy Ellipta 200-62.5-25 mcg blister with device 1 inh inhalation DAILY Qty: 60 0RF ipratropium-albuterol 0.5 mg-3 mg(2.5 mg base)/3 mL solution for nebulization 3 ml inhalation BID PRN (Reason: wheezing) Qty: 180 0RF Print Language: Djib[place]ian
--- NOTE | 2023-10-12 23:16 | MHC.EDTECH ---
call out to [facility] @[id number] to book BLS tranport back home eta of within the hour was given by Jak from [facility]
[2023-10-12 23:18] VITALS: BP 136/56; PULSE 82; RESP 18; TEMP 36.6; O2SAT 97
--- NOTE | 2023-10-12 23:20 | MHC.EDTECH ---
Hourly rounds and vitals completed,patient is being discharged and is awaiting transport.
== END 2023-10-12 23:40 | disposition home or self-care (01) ==
PROVIDERS: Emergency Provider Student in an Organized Health Care Education/Training Program
DX: T83.098A Other mechanical complication of other urinary catheter, initial encounter (principal); Y73.8 Miscellaneous gastroenterology and urology devices associated with adverse incidents, not elsewhere classified; Y92.031 Bathroom in apartment as the place of occurrence of the external cause; R33.9 Retention of urine, unspecified; E11.9 Type 2 diabetes mellitus without complications; I11.0 Hypertensive heart disease with heart failure; I50.32 Chronic diastolic (congestive) heart failure; I48.0 Paroxysmal atrial fibrillation; J96.11 Chronic respiratory failure with hypoxia; J44.9 Chronic obstructive pulmonary disease, unspecified; Z79.899 Other long term (current) drug therapy; Z79.01 Long term (current) use of anticoagulants; Z79.85 Long-term (current) use of injectable non-insulin antidiabetic drugs
CPT/HCPCS: 99284